=== PATIENT | female | born 1960 | race Two or more races ===

== ENCOUNTER → 2020-01-01 08:44 | Outpatient (BNVA) | payer MEDICARE, MEDICAID, SELFPAY | PROVIDERS: Visit Provider Family Medicine Adult Medicine | DX: M54.16 Radiculopathy, lumbar region (principal); R20.2 Paresthesia of skin; Z79.891 Long term (current) use of opiate analgesic | CPT/HCPCS: 99214 ==

== ENCOUNTER → 2020-02-03 08:06 | Outpatient (BNVA) | payer MEDICARE, MEDICAID, SELFPAY | PROVIDERS: PCP Physician Assistant; Referring Provider Physician Assistant; Visit Provider Family Medicine Adult Medicine | DX: M54.16 Radiculopathy, lumbar region (principal); M79.7 Fibromyalgia; Z79.891 Long term (current) use of opiate analgesic | CPT/HCPCS: 99212 ==

== ENCOUNTER → 2020-03-02 08:41 | Outpatient (BNVA) | payer MEDICARE, MEDICAID, SELFPAY | PROVIDERS: PCP Physician Assistant; Visit Provider Family Medicine Adult Medicine | DX: M54.16 Radiculopathy, lumbar region (principal); Z79.891 Long term (current) use of opiate analgesic | CPT/HCPCS: 99212 ==

== ENCOUNTER → 2020-03-30 08:07 | Outpatient (BNVA) | payer MEDICARE, MEDICAID, SELFPAY | PROVIDERS: PCP Physician Assistant; Visit Provider Nurse Practitioner Family | DX: M54.16 Radiculopathy, lumbar region (principal) | CPT/HCPCS: 99212 ==

== ENCOUNTER → 2020-04-27 08:08 | Outpatient (BNVA) | payer MEDICARE, MEDICAID, SELFPAY | PROVIDERS: PCP Physician Assistant; Visit Provider Family Medicine Adult Medicine | DX: M54.16 Radiculopathy, lumbar region (principal) | CPT/HCPCS: 99212 ==

== ENCOUNTER → 2020-05-25 08:01 | Outpatient (BNVA) | payer MEDICARE, MEDICAID, SELFPAY | PROVIDERS: PCP Physician Assistant; Visit Provider Family Medicine Adult Medicine | DX: M54.16 Radiculopathy, lumbar region (principal); R20.2 Paresthesia of skin; Z79.899 Other long term (current) drug therapy | CPT/HCPCS: 99212 ==

== ENCOUNTER → 2020-06-24 08:10 | Outpatient (BNVA) | payer MEDICARE, MEDICAID, SELFPAY | PROVIDERS: PCP Physician Assistant; Visit Provider Family Medicine Adult Medicine | DX: M54.16 Radiculopathy, lumbar region (principal) | CPT/HCPCS: 99212 ==

== ENCOUNTER → 2020-07-22 08:07 | Outpatient (BNVA) | payer MEDICARE, MEDICAID, SELFPAY | PROVIDERS: PCP Physician Assistant; Visit Provider Family Medicine Adult Medicine | DX: M54.16 Radiculopathy, lumbar region (principal) | CPT/HCPCS: 99212 ==

== ENCOUNTER → 2020-08-20 08:33 | Outpatient (BNVA) | payer MEDICARE, MEDICAID, SELFPAY | PROVIDERS: PCP Physician Assistant; Visit Provider Nurse Practitioner Family | DX: M54.16 Radiculopathy, lumbar region (principal) | CPT/HCPCS: 99212 ==

== ENCOUNTER → 2020-09-21 08:04 | Outpatient (BNVA) | payer MEDICARE, MEDICAID, SELFPAY | PROVIDERS: PCP Physician Assistant; Visit Provider Family Medicine Adult Medicine | DX: M54.16 Radiculopathy, lumbar region (principal) | CPT/HCPCS: 99212 ==

== ENCOUNTER → 2020-11-04 08:02 | Outpatient (BNVA) | payer MEDICARE, MEDICAID, SELFPAY | PROVIDERS: PCP Physician Assistant; Visit Provider Family Medicine Adult Medicine | DX: Z51.81 Encounter for therapeutic drug level monitoring (principal); M54.16 Radiculopathy, lumbar region | CPT/HCPCS: 99212 ==

== ENCOUNTER → 2020-11-30 08:05 | Outpatient (BNVA) | payer MEDICARE, MEDICAID, SELFPAY | PROVIDERS: PCP Physician Assistant; Visit Provider Family Medicine Adult Medicine | DX: M54.16 Radiculopathy, lumbar region (principal) | CPT/HCPCS: 99212 ==

== ENCOUNTER → 2020-12-28 08:04 | Outpatient (BNVA) | payer MEDICARE, MEDICAID, SELFPAY | PROVIDERS: PCP Physician Assistant; Visit Provider Family Medicine Adult Medicine | DX: Z13.89 Encounter for screening for other disorder (principal) | CPT/HCPCS: 99212 ==

== ENCOUNTER 2020-12-28 08:38 | Outpatient (REF) | payer MEDICARE, MEDICAID, SELFPAY ==
[2020-12-28 10:30] LABS: Appearance Urine HAZY; Color Urine YELLOW; Glucose Urine UA NEG (NEG); Leukocyte Esterase Urine NEG (NEG); Nitrite Urine NEG (NEG); Specific Gravity - Urine >= 1.030 (1.005-1.025); UACC Culture Trigger NO; Urine Blood 2+ (NEG); Urine Ketones NEG (NEG); Urine Protein NEG (NEG-TRACE)
[2020-12-28 10:39] LABS: Mean Corpuscular HGB Conc 33.3 g/dl (31.0-35.0); Mean Corpuscular Hemoglobin 30.2 pg (27.0-33.0); Mean Corpuscular Volume 90.5 fL (80-98); Mean Platelet Volume 10.8 fL (9.4-12.3); Platelet Count 308 X10*3/uL (160-400); Red Blood Count 4.31 X10*6/uL (4.20-5.50); Red Cell Distribution Width 12.5 % (11.0-16.0); White Blood Count 5.3 X10*3/uL (4.8-10.8)
[2020-12-28 10:55] LABS: Bacteria Urine 1+ /LPF; Squamous Epithelial Cell Urine 4+ /LPF; WBC Urine 0-2 /HPF (0-4)
[2020-12-28 10:56] LABS: Amorphous Sediment Urine 2+ /LPF
[2020-12-28 11:07] LABS: Estimated Average Glucose 108 mg/dL; Hemoglobin A1c % 5.4 %
[2020-12-28 11:23] LABS: Alanine Aminotransferase 32 U/L (0-31); Albumin Level 4.1 g/dL (3.5-5.0); Alkaline Phosphatase 102 U/L (39-117); Anion Gap 14 (12-20); Aspartate Amino Transferase 24 U/L (5-31); Bilirubin Total 0.3 mg/dL (0.0-1.0); Blood Urea Nitrogen 18 mg/dL (9-16); Calcium 8.7 mg/dL (8.4-10.2); Carbon Dioxide 24 mmol/L (22-29); Chloride 108 mmol/L (96-108); Cholesterol 238 mg/dL; Estimated Glomerular Filt Rate > 60; Glucose Fasting 104 mg/dL (60-99); HDL Cholesterol 43 mg/dL; LDL Cholesterol Calculated 178 mg/dl; Potassium 4.6 mmol/L (3.3-5.1); Sodium 141 mmol/L (135-145); Total Protein 6.7 g/dL (6.5-8.0); Triglycerides 89 mg/dL
[2020-12-28 11:26] LABS: TSH reflex Free T4 1.48 uIU/mL (0.32-4.0)
== END 2020-12-28 08:39 | disposition home or self-care (01) ==
LOC: HO.10HDL 08:38
PROVIDERS: Visit Provider Physician Assistant
DX: Z13.29 Encounter for screening for other suspected endocrine disorder (principal); Z13.220 Encounter for screening for lipoid disorders; M79.7 Fibromyalgia; I10 Essential (primary) hypertension
CPT/HCPCS: 36415; 80053; 80061; 81001; 83036; 84443; 85027; 99212

== ENCOUNTER → 2021-01-25 08:04 | Outpatient (BNVA) | payer MEDICARE, MEDICAID, SELFPAY | PROVIDERS: PCP Physician Assistant; Visit Provider Family Medicine Adult Medicine | DX: Z51.81 Encounter for therapeutic drug level monitoring (principal); M54.16 Radiculopathy, lumbar region | CPT/HCPCS: 99212 ==

== ENCOUNTER → 2021-03-01 08:00 | Outpatient (BNVA) | payer MEDICARE, MEDICAID, SELFPAY | PROVIDERS: PCP Physician Assistant; Visit Provider Family Medicine Adult Medicine | DX: Z51.81 Encounter for therapeutic drug level monitoring (principal); F11.20 Opioid dependence, uncomplicated | CPT/HCPCS: 99211 ==

== ENCOUNTER → 2021-03-30 08:18 | Outpatient (BNVA) | payer MEDICARE, MEDICAID, SELFPAY | PROVIDERS: PCP Physician Assistant; Visit Provider Anesthesiology | DX: Z51.81 Encounter for therapeutic drug level monitoring (principal); F11.20 Opioid dependence, uncomplicated; M54.16 Radiculopathy, lumbar region; M46.1 Sacroiliitis, not elsewhere classified; M72.2 Plantar fascial fibromatosis; M79.7 Fibromyalgia; M51.36 Other intervertebral disc degeneration, lumbar region; M47.16 Other spondylosis with myelopathy, lumbar region; G89.4 Chronic pain syndrome | CPT/HCPCS: 99212 ==

== ENCOUNTER → 2021-04-27 08:14 | Outpatient (BNVA) | payer MEDICARE, MEDICAID, SELFPAY | PROVIDERS: PCP Physician Assistant; Visit Provider Anesthesiology | DX: Z51.81 Encounter for therapeutic drug level monitoring (principal); F11.20 Opioid dependence, uncomplicated; M54.16 Radiculopathy, lumbar region; M46.1 Sacroiliitis, not elsewhere classified; M72.2 Plantar fascial fibromatosis; M79.7 Fibromyalgia; M51.36 Other intervertebral disc degeneration, lumbar region; M47.16 Other spondylosis with myelopathy, lumbar region; G89.4 Chronic pain syndrome | CPT/HCPCS: 99212 ==

== ENCOUNTER → 2021-05-25 08:37 | Outpatient (BNVA) | payer MEDICARE, MEDICAID, SELFPAY | PROVIDERS: PCP Physician Assistant; Visit Provider Anesthesiology | DX: Z51.81 Encounter for therapeutic drug level monitoring (principal); F11.20 Opioid dependence, uncomplicated; M54.16 Radiculopathy, lumbar region; M46.1 Sacroiliitis, not elsewhere classified; M72.2 Plantar fascial fibromatosis; M79.7 Fibromyalgia; M51.36 Other intervertebral disc degeneration, lumbar region; M47.16 Other spondylosis with myelopathy, lumbar region; G89.4 Chronic pain syndrome | CPT/HCPCS: 99212 ==

== ENCOUNTER → 2021-06-29 08:38 | Outpatient (BNVA) | payer MEDICARE, MEDICAID, SELFPAY | PROVIDERS: PCP Physician Assistant; Visit Provider Anesthesiology | DX: Z51.81 Encounter for therapeutic drug level monitoring (principal); F11.20 Opioid dependence, uncomplicated | CPT/HCPCS: 99212 ==

== ENCOUNTER 2021-07-13 10:26 | Outpatient (REF) | payer MEDICARE, MEDICAID, SELFPAY ==
--- NOTE | ~2021-07-13 | MR_ITS ---
EXAMINATION: MR LUMBAR SPINE WITHOUT CONTRAST CLINICAL INFORMATION: Low back pain. Bilateral lower to mid pain, numbness, and weakness. COMPARISON: No relevant prior imaging. TECHNIQUE: MRI of the lumbar spine was obtained using routine sequences without contrast. FINDINGS: There is slight grade 1 anterolisthesis of L3 on L4 and L4 on L5 related to advanced facet degenerative changes at these 2 levels. Alignment is otherwise normal. Vertebral heights are preserved. No acute bone marrow signal changes. There is disc desiccation at multiple levels without substantial loss of intervertebral disc height. The tip of the conus medullaris is located at L1-L2. No mass effect on the conus. Visualized distal cord signal intensity is normal. At L1-L2 and L2-L3 the annular contours are normal. No canal or neuroforaminal compromise at these 2 levels. At L3-L4 there is a pseudodisc bulge. Bilateral facet degenerative change. No canal stenosis. No mass effect on the traversing or foraminal nerve roots. At L4-L5 there is a pseudodisc bulge. Bilateral facet degenerative change. No canal stenosis. No mass effect on the traversing or foraminal nerve roots. At L5-S1 there is a shallow right subarticular protrusion superimposed upon a bulging disc. Bilateral facet degenerative change. No canal stenosis. No mass effect on the traversing or foraminal nerve roots. Limited visualization of the retroperitoneal anatomy reveals no abnormal finding. Psoas and paraspinal muscle groups are symmetric. MR/MR lumbar spine wo con IMPRESSION: There is multilevel degenerative spondylosis of the lumbar spine with grade 1 anterolisthesis of L3 on L4 and L4 on L5 related to facet degenerative changes at these 2 levels. There is a shallow right subarticular protrusion superimposed upon a bulging disc at L5-S1. There is no canal stenosis. No mass effect on the traversing or foraminal nerve roots.
== END 2021-07-13 10:27 | disposition home or self-care (01) ==
LOC: HO.MRI 10:26
PROVIDERS: Visit Provider Anesthesiology
DX: M47.16 Other spondylosis with myelopathy, lumbar region (principal); M51.36 Other intervertebral disc degeneration, lumbar region; G89.4 Chronic pain syndrome
CPT/HCPCS: 72148

== ENCOUNTER → 2021-07-28 08:38 | Outpatient (BNVA) | payer MEDICARE, MEDICAID, SELFPAY | PROVIDERS: PCP Physician Assistant; Visit Provider Anesthesiology | DX: M51.36 Other intervertebral disc degeneration, lumbar region (principal); M47.16 Other spondylosis with myelopathy, lumbar region; M46.1 Sacroiliitis, not elsewhere classified; G89.4 Chronic pain syndrome | CPT/HCPCS: Q3014 ==

== ENCOUNTER → 2021-08-23 08:45 | Outpatient (BNVA) | payer MEDICARE, MEDICAID, SELFPAY | PROVIDERS: PCP Physician Assistant; Visit Provider Nurse Practitioner Family | DX: G89.4 Chronic pain syndrome (principal); M51.36 Other intervertebral disc degeneration, lumbar region; M54.16 Radiculopathy, lumbar region; M53.3 Sacrococcygeal disorders, not elsewhere classified; M79.7 Fibromyalgia; Z79.891 Long term (current) use of opiate analgesic | CPT/HCPCS: 99212 ==

== ENCOUNTER → 2021-09-21 08:35 | Outpatient (BNVA) | payer MEDICARE, MEDICAID, SELFPAY | PROVIDERS: PCP Physician Assistant; Visit Provider Anesthesiology | DX: G89.4 Chronic pain syndrome (principal); M53.3 Sacrococcygeal disorders, not elsewhere classified; M51.36 Other intervertebral disc degeneration, lumbar region; M54.16 Radiculopathy, lumbar region; M79.7 Fibromyalgia; Z79.891 Long term (current) use of opiate analgesic | CPT/HCPCS: 99212 ==

== ENCOUNTER → 2021-10-14 11:07 | Outpatient (BNVA) | payer MEDICARE, MEDICAID, SELFPAY | PROVIDERS: PCP Physician Assistant; Visit Provider Internal Medicine | DX: M47.816 Spondylosis without myelopathy or radiculopathy, lumbar region (principal) | CPT/HCPCS: 99212 ==

== ENCOUNTER → 2021-11-23 08:27 | Outpatient (BNVA) | payer MEDICARE, MEDICAID, SELFPAY | PROVIDERS: PCP Physician Assistant; Visit Provider Anesthesiology | DX: G89.4 Chronic pain syndrome (principal); M53.3 Sacrococcygeal disorders, not elsewhere classified; M51.36 Other intervertebral disc degeneration, lumbar region; M79.7 Fibromyalgia; Z79.891 Long term (current) use of opiate analgesic | CPT/HCPCS: 99212 ==

== ENCOUNTER → 2022-01-23 08:33 | Outpatient (BNVA) | payer MEDICARE, MEDICAID, SELFPAY | PROVIDERS: PCP Physician Assistant; Visit Provider Anesthesiology | DX: Z51.81 Encounter for therapeutic drug level monitoring (principal); F11.20 Opioid dependence, uncomplicated; M53.3 Sacrococcygeal disorders, not elsewhere classified; M51.36 Other intervertebral disc degeneration, lumbar region; M79.7 Fibromyalgia; G89.4 Chronic pain syndrome | CPT/HCPCS: 99212 ==

== ENCOUNTER → 2022-03-20 08:41 | Outpatient (BNVA) | payer MEDICARE, MEDICAID, SELFPAY | PROVIDERS: PCP Physician Assistant; Visit Provider Anesthesiology | DX: Z51.81 Encounter for therapeutic drug level monitoring (principal); M53.3 Sacrococcygeal disorders, not elsewhere classified; M51.36 Other intervertebral disc degeneration, lumbar region; M79.7 Fibromyalgia; G89.4 Chronic pain syndrome; Z79.891 Long term (current) use of opiate analgesic | CPT/HCPCS: 99212 ==

== ENCOUNTER → 2022-05-15 08:33 | Outpatient (BNVA) | payer MEDICARE, MEDICAID, SELFPAY | PROVIDERS: PCP Physician Assistant; Visit Provider Anesthesiology | DX: G89.4 Chronic pain syndrome (principal); M53.3 Sacrococcygeal disorders, not elsewhere classified; M51.36 Other intervertebral disc degeneration, lumbar region; M79.7 Fibromyalgia; Z79.891 Long term (current) use of opiate analgesic | CPT/HCPCS: 99212 ==

== ENCOUNTER → 2022-07-20 08:32 | Outpatient (BNVA) | payer MEDICARE, MEDICAID, SELFPAY | PROVIDERS: PCP Physician Assistant; Visit Provider Anesthesiology | DX: Z51.81 Encounter for therapeutic drug level monitoring (principal); F11.20 Opioid dependence, uncomplicated; M53.3 Sacrococcygeal disorders, not elsewhere classified; M51.36 Other intervertebral disc degeneration, lumbar region; M79.7 Fibromyalgia; G89.4 Chronic pain syndrome; Z79.891 Long term (current) use of opiate analgesic | CPT/HCPCS: 99212 ==

== ENCOUNTER 2022-09-21 08:34 | Outpatient (AMB) | payer MEDICARE, MEDICAID, SELFPAY ==
--- NOTE | 2022-09-21 08:36 | A.OFFVIS_ITS ---
Intake Vital Signs 09/21/22 08:56 Height 5 ft 7 in Weight 228 lb BMI 35.7 BP 126/74 Blood Pressure Location Lt brachial Position Sitting Respiration 16 Pulse 81 Pulse Source Pulse Oximeter Pulse Oximetry (%) 97 Oxygen Delivery Method Room Air Intake Visit Reasons: Pill count Intake Note: Patient comes in for pill count to Oxycodone 5mg tablet. She presented with 2 tablets and should have 0 tablets. Which she took last this morning at 8am. Patient reports pain level today of 4-5/10. Allergies barium sulfate Allergy (Unknown, Verified 09/21/22 08:56) Unknown penicillin V Allergy (Unknown, Verified 09/21/22 08:56) Unknown pregabalin Allergy (Unknown, Verified 09/21/22 08:56) Unknown Sulfa (Sulfonamide Antibiotics) Allergy (Unknown, Verified 09/21/22 08:56) Unknown vancomycin Allergy (Unknown, Verified 09/21/22 08:56) Unknown varenicline Allergy (Unknown, Verified 09/21/22 08:56) Unknown HPI HPI Comments History of Present Illness Details Elham is a very pleasant 61-year-old female presenting for follow-up to discuss her ongoing low back pain as well as a pill count.? She presented today with 2pills in her possession.? She supposed to have no pills in her possession.? That exhibits good attitude to were the opioid medications.? The patient is taking medications as needed.? ? I am prescribing her 45 pills for a month but she has stretches this prescription or the course of the 2 months. She is very reliable patient and never missed her pill count. She takes her opioid medications on spare occasions because her pain is intermittent. I personally believe that we have to continue following original plan and perform sacroiliac joint injection 1st because on clinical exam the patient exhibits very strong signs of sacroiliitis with positive Felix test positive Gaenslen test and positive Filippo finger test.? If that will not work we will schedule patient for medial branch blocks. Patient is negative about injections. Pain reported to be in the axial low back radiating into the buttocks.? She denies radiation down the lower extremities.? Pain is present with activity and at rest.? She has previously had facet injections with moderate relief but this was done many years ago. MRI pictures with the patient showed significant multilevel facet arthritis with spondylosis and facet joint hypertrophy at L3-4 and L4-5 level.? This is associated with ligamentum flavum thickening and disc bulging altogether leading to some spinal stenosis [facility] Medical History (Updated 09/21/22 @ 08:56 by Kingsley Romero MD) Anxiety and depression Breast cancer Chronic pain syndrome Cyst of uterus Disc degeneration, lumbar Fibromyalgia Lumbar radiculopathy Neuropathy SAURAV (obstructive sleep apnea) Paresthesias Plantar fasciitis Plantar fasciitis, bilateral Pulmonary nodule Sacroiliitis Spondylosis, lumbar, with myelopathy Surgical History History of 2 sections History of bilateral breast reduction surgery History of vocal cord polypectomy Family History Father Alive and well Mother No problems noted. Social History Household Members Other:: with daughter Housing: House Alcohol intake: never Patient Tobacco Use Status: Former Tobacco user Cigarettes Per Day: 10 e-Cigarette/Vaping Use: Never Used Second Hand Smoke Exposure: Yes service: No Current occupational status: disabled Cognitive needs: No Hearing needs: No Vision needs: Yes (Glasses) Review of Systems Const All systems reviewed & are unremarkable except as noted in HPI and below Neuro Denies Abnormal speech present Physical Exam Const General: cooperative, no acute distress, alert, awake and well groomed Nutritional Appearance: well nourished and obese Orientation/consciousness: patient oriented x3 Limitations: no limitations HEENT Head: Yes normal to inspection, Yes normocephalic and Yes atraumatic Ears: hearing grossly normal bilaterally Eyes General: appearance normal, both eyes and all related structures Visual Friedman: normal visual friedman by confrontation Eyelids: Yes eyelids normal Pupils: Equal, round and reactive pupils present EOM: EOMs intact bilaterally Neck Neck: Yes normal visual inspection, Yes no lymphadenopathy, No anterior neck swelling and Yes no JVD Resp Effort & Inspection: normal respiratory effort, able to speak in complete sentences, normal respiratory pattern, no audible wheezes, no cough, no respiratory distress and symmetric chest movement Cardio Jugular venous distension: no JVD Bruits: no carotid bruits Peripheral pulses: radial pulses present, posterior tibial pulses present and dorsalis pedis present GI Inspection: Yes normal to inspection and No distended Palpation (GI): Soft to palpation and nontender Back/Spine/Pelvis Other: She is able to stand on bilateral tiptoes and bilateral heels although with difficulty which she relates with acute exacerbation of the her pain secondary to plantar fasciitis.? Nevertheless she demonstrates good efforts on bilateral lower extremities muscle strength.? She is able to flex forward without difficulty but flexing backwards cause her extreme pain in the back.? She is al so capable of performing herself SLR bilaterally however she reports that the right SLR is painful more than SLR on the left.? Felix test is positive bilaterally, Filippo finger test is positive bilaterally, palpation of bilateral sacroiliac joints causes significant pain in the projection of sacroiliac joint.? Most of the pain and tenderness of palpation in the projection of lower portion of lumbar and sacral bone.? This makes me think about bilateral sacroiliitis for this patient. Skin General skin exam: no rashes or lesions noted Neuro General: patient oriented x3 Cranial nerves: Yes Equal, round and reactive pupils present Speech: No Abnormal speech present Assessment & Plan Assessment & Plan (1) Sacroiliac joint dysfunction: Code(s): M53.3 - Sacrococcygeal disorders, not elsewhere classified (2) Opioid contract exists: Code(s): Z79.891 - enrobing machine feeder (current) use of opiate analgesic (3) Disc degeneration, lumbar: Code(s): M51.36 - Other intervertebral disc degeneration, lumbar region (4) Chronic pain syndrome: Code(s): G89.4 - Chronic pain syndrome (5) Fibromyalgia: Code(s): M79.7 - Fibromyalgia (6) Sacroiliitis, not elsewhere classified: Code(s): M46.1 - Sacroiliitis, not elsewhere classified Plan Patient has shown accountability for her medication regimen and the pill count was accurate. There is no evidence of misuse, abuse or diversion at this time. MassPat reviewed. She is being prescribed oxycodone now 5 mg 45 pills for 1 month however she stretches this prescription for 2 months. I usually see her once in 2 months. She is very reliable patient. She requests me to send her to physical therapy. She wants open order for physical therapy. She will bring it to [place]. She is reluctant to have injections which were offered to her in the past multiple times. Orders: Orders PT Evaluation and Treatment Today M46.1 - Sacroiliitis, not elsewhere classified Medications: Refilled oxycodone Partial Fill upon patient request. 5 mg PO BID 30 days PRN 45 tabs 0RF pain MDD one and one half pill. Coding Level of Care Code Est Pt Level 3 (67902) Diagnoses Sacroiliac joint dysfunction M53.3 Opioid contract exists Z79.891 Disc degeneration, lumbar M51.36 Chronic pain syndrome G89.4 Fibromyalgia M79.7 Sacroiliitis, not elsewhere classified M46.1
[2022-09-21 08:56] VITALS: BP 126/74; PULSE 81; RESP 16; O2SAT 97; BMI 35.7
== END 2022-09-21 08:54 | disposition home or self-care (01) ==
PROVIDERS: PCP Physician Assistant; Visit Provider Anesthesiology
DX: M53.3 Sacrococcygeal disorders, not elsewhere classified (principal); Z79.891 Long term (current) use of opiate analgesic; M51.36 Other intervertebral disc degeneration, lumbar region; G89.4 Chronic pain syndrome; M79.7 Fibromyalgia; M46.1 Sacroiliitis, not elsewhere classified
CPT/HCPCS: 99213

== ENCOUNTER → 2022-09-21 08:34 | Outpatient (BNVA) | payer MEDICARE, MEDICAID, SELFPAY | PROVIDERS: PCP Physician Assistant; Visit Provider Anesthesiology | DX: G89.4 Chronic pain syndrome (principal); M53.3 Sacrococcygeal disorders, not elsewhere classified; M51.36 Other intervertebral disc degeneration, lumbar region; M79.7 Fibromyalgia; M46.1 Sacroiliitis, not elsewhere classified; Z79.891 Long term (current) use of opiate analgesic | CPT/HCPCS: 99212 ==

== ENCOUNTER → 2022-10-12 08:56 | Outpatient (BNVA) | payer MEDICARE, MEDICAID, SELFPAY | PROVIDERS: PCP Physician Assistant; Visit Provider Registered Nurse Emergency | DX: Z51.81 Encounter for therapeutic drug level monitoring (principal); F11.20 Opioid dependence, uncomplicated | CPT/HCPCS: 99211 ==

== ENCOUNTER 2022-11-17 08:43 | Outpatient (AMB) | payer MEDICARE, MEDICAID, SELFPAY ==
[2022-11-17 08:55] VITALS: BP 136/86; PULSE 94; RESP 18; O2SAT 96; BMI 35.5
--- NOTE | 2022-11-17 08:55 | MHC.OFFVIS ---
Intake Vital Signs 11/17/22 08:55 Height 5 ft 7 in Weight 226 lb 6 oz BMI 35.5 BP 136/86 Blood Pressure Location Lt brachial Position Sitting Respiration 18 Pulse 94 Pulse Source Pulse Oximeter Pulse Oximetry (%) 96 Oxygen Delivery Method Room Air Intake Visit Reasons: Med count Allergies barium sulfate Allergy (Unknown, Verified 11/17/22 08:56) Unknown penicillin V Allergy (Unknown, Verified 11/17/22 08:56) Unknown pregabalin Allergy (Unknown, Verified 11/17/22 08:56) Unknown Sulfa (Sulfonamide Antibiotics) Allergy (Unknown, Verified 11/17/22 08:56) Unknown vancomycin Allergy (Unknown, Verified 11/17/22 08:56) Unknown varenicline Allergy (Unknown, Verified 11/17/22 08:56) Unknown HPI HPI Comments History of Present Illness Details Elham is a very pleasant 62 year old female who presents to the office today for chronic back pain and chronic opioid medication management. She is prescribed Oxycodone 5mg tabs, take 1.5 tabs daily as needed. Patient arrived today with the expectation of having 13.5 pills, she presented 35 pills which were counted in the presence of 2 staff and return to the patient in the original prescription bottle. This demonstrates responsible attitude toward patient's opioid medications. Pain is reported today as 8/10 and last dose of pain medication was taken at 08:00 this morning. Pain is adequately managed on current opioid regimen. Patient denies side effects including somnolence, constipation, itching, dyspnea, rash, dizziness or weakness. Patient previously prescribed 7.5mg tabs, due to supply issues she was changed to 5mg tabs. She would like to return to 7.5mg tabs, she confirmed with pharmacy that 7.5mg oxycodone tabs are back in stock. She has been offered SIJ injections in the past, she is planning to start PT for her SIJ and is currently working on scheduling appointments. She is holding on injections until after PT. Prior: Elham is a very pleasant 61-year-old female presenting for follow-up to discuss her ongoing low back pain as well as a pill count.? She presented today with 2pills in her possession.? She supposed to have no pills in her possession.? That exhibits good attitude to were the opioid medications.? The patient is taking medications as needed.? ? I am prescribing her 45 pills for a month but she has stretches this prescription or the course of the 2 months. She is very reliable patient and never missed her pill count. She takes her opioid medications on spare occasions because her pain is intermittent. I personally believe that we have to continue following original plan and perform sacroiliac joint injection 1st because on clinical exam the patient exhibits very strong signs of sacroiliitis with positive Felix test positive Gaenslen test and positive Filippo finger test.? If that will not work we will schedule patient for medial branch blocks. Patient is negative about injections. Pain reported to be in the axial low back radiating into the buttocks.? She denies radiation down the lower extremities.? Pain is present with activity and at rest.? She has previously had facet injections with moderate relief but this was done many years ago. MRI pictures with the patient showed significant multilevel facet arthritis with spondylosis and facet joint hypertrophy at L3-4 and L4-5 level.? This is associated with ligamentum flavum thickening and disc bulging altogether leading to some spinal stenosis [facility] Medical History (Updated 09/21/22 @ 08:56 by Kingsley Romero MD) SAURAV (obstructive sleep apnea) Anxiety and depression Spondylosis, lumbar, with myelopathy Disc degeneration, lumbar Chronic pain syndrome Fibromyalgia Plantar fasciitis Sacroiliitis Plantar fasciitis, bilateral Paresthesias Lumbar radiculopathy Cyst of uterus Breast cancer Neuropathy Pulmonary nodule Surgical History History of 2 sections History of bilateral breast reduction surgery History of vocal cord polypectomy Family History Father Alive and well Mother No problems noted. Social History Household Members Other:: with daughter Housing: House Alcohol intake: never Patient Tobacco Use Status: Former Tobacco user Cigarettes Per Day: 10 e-Cigarette/Vaping Use: Never Used Second Hand Smoke Exposure: Yes service: No Current occupational status: disabled Cognitive needs: No Hearing needs: No Vision needs: Yes (Glasses) Review of Systems Const All systems reviewed & are unremarkable except as noted in HPI and below Physical Exam Vital Signs: Last Vital Signs Pulse 94 11/17/22 08:55 Resp 18 11/17/22 08:55 BP 136/86 11/17/22 08:55 Pulse Ox 96 11/17/22 08:55 Oxygen Delivery Method Room Air 11/17/22 08:55 BMI result Body Mass Index 35.5 General: awake, alert, oriented. Answers questions appropriately. Fully engaged in examination. Skin: warm, dry, intact HEENT: Normocephalic. Hearing intact. Cardiac: External chest normal in appearance. Respiratory: No cough, audible wheezing or stridor. Abdomen: without gross distension. MS: Able to transition from sit to stand unassisted. Ambulates with bilaterally normal heel strike and toe off Neurological: Oriented to person, place, time and situation. Thought process intact. Psychiatric: Appropriate mood and affect. Good judgment and insight. Assessment & Plan Assessment & Plan (1) Sacroiliac joint dysfunction: Code(s): M53.3 - Sacrococcygeal disorders, not elsewhere classified (2) Opioid contract exists: Code(s): Z79.891 - longterm (current) use of opiate analgesic (3) Disc degeneration, lumbar: Code(s): M51.36 - Other intervertebral disc degeneration, lumbar region (4) Chronic pain syndrome: Code(s): G89.4 - Chronic pain syndrome (5) Fibromyalgia: Code(s): M79.7 - Fibromyalgia (6) Sacroiliitis, not elsewhere classified: Code(s): M46.1 - Sacroiliitis, not elsewhere classified Plan Masspat was reviewed and without concerns. No obvious signs of diversion, abuse or misuse of the opioid medications. Per last visit with Dr. Romero patient stretches her prescription over 2 months, she is not due for refill today. Patient to follow-up in the office with Dr. Romero in 1 month, sooner if needed. Next prescription will be sent at that visit for 7.5mg oxycodone tabs with decreased quantity. C/W plan for PT, will further discuss injections for SIJ after completion of PT. All questions and concerns have been answered and patient agrees with the plan. Coding Level of Care Code Est Pt Level 3 (91477) Diagnoses Sacroiliac joint dysfunction M53.3 Opioid contract exists Z79.891 Disc degeneration, lumbar M51.36 Chronic pain syndrome G89.4 Fibromyalgia M79.7 Sacroiliitis, not elsewhere classified M46.1
== END 2022-11-17 09:14 | disposition home or self-care (01) ==
PROVIDERS: PCP Physician Assistant; Visit Provider Registered Nurse Emergency
DX: G89.4 Chronic pain syndrome (principal); M53.3 Sacrococcygeal disorders, not elsewhere classified; Z79.891 Long term (current) use of opiate analgesic; M51.36 Other intervertebral disc degeneration, lumbar region; M79.7 Fibromyalgia; M46.1 Sacroiliitis, not elsewhere classified
CPT/HCPCS: 99213

== ENCOUNTER → 2022-11-17 08:43 | Outpatient (BNVA) | payer MEDICARE, MEDICAID, SELFPAY | PROVIDERS: PCP Physician Assistant; Visit Provider Registered Nurse Emergency | DX: M35.3 Polymyalgia rheumatica (principal); M51.36 Other intervertebral disc degeneration, lumbar region; G89.4 Chronic pain syndrome; M79.7 Fibromyalgia; M46.1 Sacroiliitis, not elsewhere classified; Z79.891 Long term (current) use of opiate analgesic | CPT/HCPCS: 99212 ==

== ENCOUNTER 2022-11-20 15:44 | Outpatient (AMB) | payer MEDICARE, MEDICAID, SELFPAY ==
--- NOTE | 2022-11-20 15:45 | MHC.OFFVIS ---
Intake Intake Visit Reasons: MEDICATION DISCUSSION Allergies barium sulfate Allergy (Unknown, Verified 11/20/22 15:46) Unknown penicillin V Allergy (Unknown, Verified 11/20/22 15:46) Unknown pregabalin Allergy (Unknown, Verified 11/20/22 15:46) Unknown Sulfa (Sulfonamide Antibiotics) Allergy (Unknown, Verified 11/20/22 15:46) Unknown vancomycin Allergy (Unknown, Verified 11/20/22 15:46) Unknown varenicline Allergy (Unknown, Verified 11/20/22 15:46) Unknown Medication List - Last Reconciled 11/20/22 by Julisa Cannon RN albuterol sulfate 90 mcg/actuation 1 puff PO QID ibuprofen 400 mg PO Q8H PRN nitrofurantoin monohyd/m-cryst 100 mg (Macrobid) 100 mg PO Q12H 5 days oxybutynin chloride ER 10 mg PO DAILY 90 days oxycodone 5 mg PO BID PRN 30 days MDD one and one half pill. pantoprazole 40 mg PO DAILY 90 days Symbicort 80-4.5 mcg/actuation (budesonide-formoterol) 2 puffs inhalation BID 30 days NS HPI HPI Comments History of Present Illness Details Elham is a very pleasant 62 year old female who presents to the office today for chronic back pain and chronic opioid medication management. There was misunderstanding with my office in this patient. She was prescribed 7.5 mg from the very beginning of care. Her pain from time to time was getting better and her dose was decreased to 5 mg p.r.n. b.i.d. of oxycodone. Now she reports her pain is getting worse and she would like to return to previously prescribe 7.5 mg. She was taking this medications very sparingly she was taking medication not even every day. I will renew her medication today do on 12/04/2022. I will prescribe it as oxycodone/acetaminophen 7.5 mg/325 mg b.i.d. but she again will be stretching this medication over the course of 2 months. Patient denies side effects including somnolence, constipation, itching, dyspnea, rash, dizziness or weakness. Patient previously prescribed 7.5mg tabs, due to supply issues she was changed to 5mg tabs. She would like to return to 7.5mg tabs, she confirmed with pharmacy that 7.5mg oxycodone tabs are back in stock. She has been offered SIJ injections in the past, she is planning to start PT for her SIJ and is currently working on scheduling appointments. She is holding on injections until after PT. Prior: Elham is a very pleasant 61-year-old female presenting for follow-up to discuss her ongoing low back pain as well as a pill count.? She presented today with 2pills in her possession.? She supposed to have no pills in her possession.? That exhibits good attitude to were the opioid medications.? The patient is taking medications as needed.? ? I am prescribing her 45 pills for a month but she has stretches this prescription or the course of the 2 months. She is very reliable patient and never missed her pill count. She takes her opioid medications on spare occasions because her pain is intermittent. I personally believe that we have to continue following original plan and perform sacroiliac joint injection 1st because on clinical exam the patient exhibits very strong signs of sacroiliitis with positive Felix test positive Gaenslen test and positive Filippo finger test.? If that will not work we will schedule patient for medial branch blocks. Patient is negative about injections. Pain reported to be in the axial low back radiating into the buttocks.? She denies radiation down the lower extremities.? Pain is present with activity and at rest.? She has previously had facet injections with moderate relief but this was done many years ago. MRI pictures with the patient showed significant multilevel facet arthritis with spondylosis and facet joint hypertrophy at L3-4 and L4-5 level.? This is associated with ligamentum flavum thickening and disc bulging altogether leading to some spinal stenosis [facility] Medical History (Updated 09/21/22 @ 08:56 by Kingsley Romero MD) SAURAV (obstructive sleep apnea) Anxiety and depression Spondylosis, lumbar, with myelopathy Disc degeneration, lumbar Chronic pain syndrome Fibromyalgia Plantar fasciitis Sacroiliitis Plantar fasciitis, bilateral Paresthesias Lumbar radiculopathy Cyst of uterus Breast cancer Neuropathy Pulmonary nodule Surgical History History of 2 sections History of bilateral breast reduction surgery History of vocal cord polypectomy Family History Father Alive and well Mother No problems noted. Social History Household Members Other:: with daughter Housing: House Alcohol intake: never Patient Tobacco Use Status: Former Tobacco user Cigarettes Per Day: 10 e-Cigarette/Vaping Use: Never Used Second Hand Smoke Exposure: Yes service: No Current occupational status: disabled Cognitive needs: No Hearing needs: No Vision needs: Yes (Glasses) Review of Systems Const All systems reviewed & are unremarkable except as noted in HPI and below Assessment & Plan Assessment & Plan (1) Sacroiliac joint dysfunction: Code(s): M53.3 - Sacrococcygeal disorders, not elsewhere classified (2) Opioid contract exists: Code(s): Z79.891 - group home (current) use of opiate analgesic (3) Disc degeneration, lumbar: Code(s): M51.36 - Other intervertebral disc degeneration, lumbar region (4) Chronic pain syndrome: Code(s): G89.4 - Chronic pain syndrome (5) Fibromyalgia: Code(s): M79.7 - Fibromyalgia (6) Sacroiliitis, not elsewhere classified: Code(s): M46.1 - Sacroiliitis, not elsewhere classified Plan Masspat was reviewed and without concerns. No obvious signs of diversion, abuse or misuse of the opioid medications. We agreed that we will return to the dose of [id number] 7.5/ 325 1 tablet p.o. b.i.d. p.r.n. 45 tablets per month which she will stretch on the course of 2 months. I will see her in the beginning of January. Medications: New oxycodone-acetaminophen 7.5-325 mg Partial Fill upon patient request. 1 tab PO BID 30 days PRN 45 tabs 0RF pain Discontinued oxycodone Partial Fill upon patient request. Discontinued Reason: Doctor's Order 5 mg PO BID 30 days PRN 45 tabs 0RF pain MDD one and one half pill. Patient Instructions: I here by testify that I spent 15 minutes in conversation with this patient. Telehealth Telehealth Location of provider rendering services: practice address Location of patient: other Patient Identification confirmed using: Name, : Yes Telehealth method: voice only Patient verbally consented to treatment: Yes Patient verbally consented to billing insurance company: Yes Patient informed of any privacy concerns related to visit: Yes Coding Level of Care Code Tele Est Pt Level 3 (87045) Diagnoses Sacroiliac joint dysfunction M53.3 Opioid contract exists Z79.891 Disc degeneration, lumbar M51.36 Chronic pain syndrome G89.4 Fibromyalgia M79.7 Sacroiliitis, not elsewhere classified M46.1
--- NOTE | 2022-11-20 15:49 | MHC.OFFVIS ---
Intake Intake Visit Reasons: MEDICATION DISCUSSION Allergies barium sulfate Allergy (Unknown, Verified 11/20/22 15:46) Unknown penicillin V Allergy (Unknown, Verified 11/20/22 15:46) Unknown pregabalin Allergy (Unknown, Verified 11/20/22 15:46) Unknown Sulfa (Sulfonamide Antibiotics) Allergy (Unknown, Verified 11/20/22 15:46) Unknown vancomycin Allergy (Unknown, Verified 11/20/22 15:46) Unknown varenicline Allergy (Unknown, Verified 11/20/22 15:46) Unknown Medication List - Last Reconciled 11/20/22 by Julisa Cannon RN albuterol sulfate 90 mcg/actuation 1 puff PO QID ibuprofen 400 mg PO Q8H PRN nitrofurantoin monohyd/m-cryst 100 mg (Macrobid) 100 mg PO Q12H 5 days oxybutynin chloride ER 10 mg PO DAILY 90 days oxycodone 5 mg PO BID PRN 30 days MDD one and one half pill. pantoprazole 40 mg PO DAILY 90 days Symbicort 80-4.5 mcg/actuation (budesonide-formoterol) 2 puffs inhalation BID 30 days NS [facility] Medical History (Updated 09/21/22 @ 08:56 by Kingsley Romero MD) SAURAV (obstructive sleep apnea) Anxiety and depression Spondylosis, lumbar, with myelopathy Disc degeneration, lumbar Chronic pain syndrome Fibromyalgia Plantar fasciitis Sacroiliitis Plantar fasciitis, bilateral Paresthesias Lumbar radiculopathy Cyst of uterus Breast cancer Neuropathy Pulmonary nodule Surgical History History of 2 sections History of bilateral breast reduction surgery History of vocal cord polypectomy Family History Father Alive and well Mother No problems noted. Social History Household Members Other:: with daughter Housing: House Alcohol intake: never Patient Tobacco Use Status: Former Tobacco user Cigarettes Per Day: 10 e-Cigarette/Vaping Use: Never Used Second Hand Smoke Exposure: Yes service: No Current occupational status: disabled Cognitive needs: No Hearing needs: No Vision needs: Yes (Glasses) Coding
== END 2022-11-20 16:04 | disposition home or self-care (01) ==
LOC: HO.PMC 15:44
PROVIDERS: PCP Physician Assistant; Visit Provider Anesthesiology
DX: M53.3 Sacrococcygeal disorders, not elsewhere classified (principal); Z79.891 Long term (current) use of opiate analgesic; M51.36 Other intervertebral disc degeneration, lumbar region; G89.4 Chronic pain syndrome; M79.7 Fibromyalgia; M46.1 Sacroiliitis, not elsewhere classified
CPT/HCPCS: 99442

== ENCOUNTER → 2022-11-20 15:44 | Outpatient (BNVA) | payer MEDICARE, MEDICAID, SELFPAY | PROVIDERS: PCP Physician Assistant; Visit Provider Anesthesiology ==

== ENCOUNTER 2023-01-10 09:10 | Outpatient (AMB) | payer MEDICARE, MEDICAID, SELFPAY ==
[2023-01-10 09:12] VITALS: PULSE 81; RESP 1; O2SAT 98; BMI 35.7
--- NOTE | 2023-01-10 09:12 | A.OFFVIS_ITS ---
Intake Vital Signs 01/10/23 09:12 Height 5 ft 7 in Weight 228 lb BMI 35.7 Blood Pressure Location Lt brachial Position Sitting Respiration 1 L Pulse 81 Pulse Source Pulse Oximeter Pulse Oximetry (%) 98 Oxygen Delivery Method Room Air Intake Visit Reasons: PILL COUNT /Confirmed Intake Note: Pt states she last took percocet 01/10/23 @ 8am Allergies barium sulfate Allergy (Unknown, Verified 01/10/23 09:14) Unknown penicillin V Allergy (Unknown, Verified 01/10/23 09:14) Unknown pregabalin Allergy (Unknown, Verified 01/10/23 09:14) Unknown Sulfa (Sulfonamide Antibiotics) Allergy (Unknown, Verified 01/10/23 09:14) Unknown vancomycin Allergy (Unknown, Verified 01/10/23 09:14) Unknown varenicline Allergy (Unknown, Verified 01/10/23 09:14) Unknown Medication List - Last Reconciled 01/10/23 by Yodit Alexander, [place] albuterol sulfate 90 mcg/actuation 1 puff PO QID ibuprofen 400 mg PO Q8H PRN oxybutynin chloride ER 10 mg PO DAILY 90 days oxycodone-acetaminophen 7.5-325 mg 1 tab PO BID PRN 30 days Symbicort 80-4.5 mcg/actuation (budesonide-formoterol) 2 puffs inhalation BID 30 days NS HPI HPI Comments History of Present Illness Details Elham is a very pleasant 62 year old female who presents to the office today for chronic back pain and chronic opioid medication management. Patient came today with 9 pills in her possession she supposed to have no pills in her possession. This demonstrates responsible attitude to were the opioid medications. She is being prescribed 45 pills for a month but she is able to stretch this prescription over the course of 2 months. She has been offered SIJ injections in the past, she is planning to start PT for her SIJ and is currently working on scheduling appointments. She is holding on injections until after PT. she did not start PT yet but she is planning to do it soon. I evaluated her MRI from 2021. The might be some subtle Modic type 1 changes in the L5-S1 as well. Possibility of intrasept was discussed with the patient. Prior: Elham is a very pleasant 61-year-old female presenting for follow-up to discuss her ongoing low back pain as well as a pill count.? She presented today with 2pills in her possession.? She supposed to have no pills in her possession.? That exhibits good attitude to were the opioid medications.? The patient is taking medications as needed.? ? I am prescribing her 45 pills for a month but she has stretches this prescription or the course of the 2 months. She is very reliable patient and never missed her pill count. She takes her opioid medications on spare occasions because her pain is intermittent. I personally believe that we have to continue following original plan and perform sacroiliac joint injection 1st because on clinical exam the patient exhibits very strong signs of sacroiliitis with positive Felix test positive Gaenslen test and positive Filippo finger test.? If that will not work we will schedule patient for medial branch blocks. Patient is negative about injections. Pain reported to be in the axial low back radiating into the buttocks.? She denies radiation down the lower extremities.? Pain is present with activity and at rest.? She has previously had facet injections with moderate relief but this was done many years ago. MRI pictures with the patient showed significant multilevel facet arthritis with spondylosis and facet joint hypertrophy at L3-4 and L4-5 level.? This is associated with ligamentum flavum thickening and disc bulging altogether leading to some spinal stenosis [facility] Medical History (Updated 11/23/22 @ 12:06 by Sincere Ray PA-C) SAURAV (obstructive sleep apnea) Anxiety and depression Spondylosis, lumbar, with myelopathy Disc degeneration, lumbar Chronic pain syndrome Fibromyalgia Plantar fasciitis Sacroiliitis Plantar fasciitis, bilateral Paresthesias Lumbar radiculopathy Cyst of uterus Breast cancer Neuropathy Pulmonary nodule Surgical History History of 2 sections History of bilateral breast reduction surgery History of vocal cord polypectomy Family History Father Alive and well Mother No problems noted. Social History Household Members Other:: with daughter Housing: House Alcohol intake: never Patient Tobacco Use Status: Former Tobacco user Cigarettes Per Day: 10 e-Cigarette/Vaping Use: Never Used Second Hand Smoke Exposure: Yes service: No Current occupational status: disabled Cognitive needs: No Hearing needs: No Vision needs: Yes (Glasses) Review of Systems Const All systems reviewed & are unremarkable except as noted in HPI and below Neuro Denies Abnormal speech present Physical Exam Vital Signs: Last Vital Signs Pulse 81 01/10/23 09:12 Resp 1 L 01/10/23 09:12 Pulse Ox 98 01/10/23 09:12 Oxygen Delivery Method Room Air 01/10/23 09:12 BMI result Body Mass Index 35.7 Const General: cooperative, no acute distress, alert, awake and well groomed Nutritional Appearance: well nourished and obese Orientation/consciousness: patient oriented x3 Limitations: no limitations HEENT Head: Yes normal to inspection, Yes normocephalic and Yes atraumatic Ears: hearing grossly normal bilaterally Eyes General: appearance normal, both eyes and all related structures Visual Friedman: normal visual friedman by confrontation Eyelids: Yes eyelids normal Pupils: Equal, round and reactive pupils present EOM: EOMs intact bilaterally Neck Neck: Yes normal visual inspection, Yes no lymphadenopathy, No anterior neck swelling and Yes no JVD Resp Effort & Inspection: normal respiratory effort, able to speak in complete sentences, normal respiratory pattern, no audible wheezes, no cough, no respiratory distress and symmetric chest movement Cardio Jugular venous distension: no JVD Bruits: no carotid bruits Peripheral pulses: radial pulses present, posterior tibial pulses present and dorsalis pedis present GI Inspection: Yes normal to inspection and No distended Palpation (GI): Soft to palpation and nontender Back/Spine/Pelvis Other: She is able to stand on bilateral tiptoes and bilateral heels although with difficulty which she relates with acute exacerbation of the her pain secondary to plantar fasciitis.? Nevertheless she demonstrates good efforts on bilateral lower extremities muscle strength.? She is able to flex forward without difficulty but flexing backwards cause her extreme pain in the back.? She is also capable of performing herself SLR bilaterally however she reports that the right SLR is painful more than SLR on the left.? Felix test is positive bilaterally, Filippo finger test is positive bilaterally, palpation of bilateral sacroiliac joints causes significant pain in the projection of sacroiliac joint.? Most of the pain and tenderness of palpation in the projection of lower portion of lumbar and sacral bone.? This makes me think about bilateral sacroiliitis for this patient. Skin General skin exam: no rashes or lesions noted Neuro General: patient oriented x3 Cranial nerves: Yes Equal, round and reactive pupils present Speech: No Abnormal speech present Assessment & Plan Assessment & Plan (1) Sacroiliac joint dysfunction: Code(s): M53.3 - Sacrococcygeal disorders, not elsewhere classified (2) Opioid contract exists: Code(s): Z79.891 - senior living (current) use of opiate analgesic (3) Disc degeneration, lumbar: Code(s): M51.36 - Other intervertebral disc degeneration, lumbar region (4) Chronic pain syndrome: Code(s): G89.4 - Chronic pain syndrome (5) Fibromyalgia: Code(s): M79.7 - Fibromyalgia (6) Sacroiliitis, not elsewhere classified: Code(s): M46.1 - Sacroiliitis, not elsewhere classified Plan Masspat was reviewed and without concerns. No obvious signs of diversion, abuse or misuse of the opioid medications. We agreed that we will return to the dose of Hvvvclfw-oguwwdjoy-chxsmavhvkaky 7.5/ 325 1 tablet p.o. b.i.d. p.r.n. 45 tablets per month which she will stretch on the course of 2 months. I will see her in 2 months from now. We discussed in the past SI joint injections. Now I am bringing on the table for her possibility of doing intercept for her. She wants to complete physical therapy 1st and see how this will or will not affect her pain. Medications: Refilled oxycodone-acetaminophen 7.5-325 mg Partial Fill upon patient request. 1 tab PO BID 30 days PRN 45 tabs 0RF pain Coding Level of Care Code Est Pt Level 4 (95233) Diagnoses Sacroiliac joint dysfunction M53.3 Opioid contract exists Z79.891 Disc degeneration, lumbar M51.36 Chronic pain syndrome G89.4 Fibromyalgia M79.7 Sacroiliitis, not elsewhere classified M46.1
== END 2023-01-10 09:34 | disposition home or self-care (01) ==
PROVIDERS: PCP Physician Assistant; Visit Provider Anesthesiology
DX: M53.3 Sacrococcygeal disorders, not elsewhere classified (principal); Z79.891 Long term (current) use of opiate analgesic; M51.36 Other intervertebral disc degeneration, lumbar region; G89.4 Chronic pain syndrome; M79.7 Fibromyalgia; M46.1 Sacroiliitis, not elsewhere classified
CPT/HCPCS: 99214

== ENCOUNTER → 2023-01-10 09:10 | Outpatient (BNVA) | payer MEDICARE, MEDICAID, SELFPAY | PROVIDERS: PCP Physician Assistant; Visit Provider Anesthesiology | DX: M53.3 Sacrococcygeal disorders, not elsewhere classified (principal); M51.36 Other intervertebral disc degeneration, lumbar region; G89.4 Chronic pain syndrome; M79.7 Fibromyalgia; M46.1 Sacroiliitis, not elsewhere classified; Z79.891 Long term (current) use of opiate analgesic | CPT/HCPCS: 99212 ==

== ENCOUNTER 2023-03-26 09:12 | Outpatient (REF) | payer MEDICARE, MEDICAID, SELFPAY ==
[2023-03-26 10:30] LABS: Hematocrit 43.2 % (37.0-47.0); Hemoglobin 14.2 g/dl (12.0-16.0); Mean Corpuscular HGB Conc 32.9 g/dl (31.0-35.0); Mean Corpuscular Hemoglobin 29.1 pg (27.0-33.0); Mean Corpuscular Volume 88.5 fL (80.0-98.0); Mean Platelet Volume 10.3 fL (9.4-12.3); Platelet Count 312 X10*3/uL (160-400); Red Blood Count 4.88 X10*6/uL (4.20-5.50); Red Cell Distribution Width 12.9 % (11.0-16.0); White Blood Count 4.6 X10*3/uL (4.8-10.8)
[2023-03-26 10:46] LABS: Alanine Aminotransferase 36 U/L (0-31); Albumin Level 4.3 g/dL (3.5-5.0); Alkaline Phosphatase 100 U/L (39-117); Anion Gap 10 (12-20); Aspartate Amino Transferase 22 U/L (5-31); Bilirubin Total 0.6 mg/dL (0.0-1.0); Blood Urea Nitrogen 16 mg/dL (9-16); Calcium 9.5 mg/dL (8.4-10.2); Carbon Dioxide 24 mmol/L (22-29); Chloride 109 mmol/L (96-108); Cholesterol 279 mg/dL (<200); Estimated Glomerular Filt Rate > 60; Glucose Fasting 109 mg/dL (60-99); HDL Cholesterol 49 mg/dL (>40); LDL Cholesterol Calculated 195 mg/dL (<100); Potassium 4.2 mmol/L (3.3-5.1); Sodium 139 mmol/L (135-145); Total Protein 7.6 g/dL (6.5-8.0); Triglycerides 176 mg/dL (<150)
== END 2023-03-26 09:13 | disposition home or self-care (01) ==
LOC: HO.10HDL 09:12
PROVIDERS: Visit Provider Physician Assistant
DX: Z13.1 Encounter for screening for diabetes mellitus (principal); E78.2 Mixed hyperlipidemia
CPT/HCPCS: 36415; 80053; 80061; 85027; 99212

== ENCOUNTER 2023-03-26 09:23 | Outpatient (AMB) | payer MEDICARE, MEDICAID, SELFPAY ==
--- NOTE | 2023-03-26 09:24 | MHC.OFFVIS ---
Intake Vital Signs 03/26/23 09:33 Height 5 ft 7 in Weight 232 lb 4 oz BMI 36.4 BP 150/80 H Blood Pressure Location Lt radial Position Sitting Respiration 16 Pulse 86 Pulse Source Pulse Oximeter Pulse Oximetry (%) 97 Oxygen Delivery Method Room Air Intake Visit Reasons: Medication Count/ Random UDS/confirmed Intake Note: Patient comes in for pill count to Oxycodone-acetaminophen 7.5 mg -325 mg tablets. Allergies barium sulfate Allergy (Unknown, Verified 03/26/23 09:32) Unknown penicillin V Allergy (Unknown, Verified 03/26/23 09:32) Unknown pregabalin Allergy (Unknown, Verified 03/26/23 09:32) Unknown Sulfa (Sulfonamide Antibiotics) Allergy (Unknown, Verified 03/26/23 09:32) Unknown vancomycin Allergy (Unknown, Verified 03/26/23 09:32) Unknown varenicline Allergy (Unknown, Verified 03/26/23 09:32) Unknown HPI HPI Comments History of Present Illness Details Elham is a very pleasant 62 year old female who presents to the office today for chronic back pain and chronic opioid medication management. She came today with 1 pill in her possession. His supposed to have no pills in her possession. I will send her prescription today. She is due today. I am prescribing 45 pills for the month and she is stretching it for the course of 2 months. He is taking opioid medications very sparingly. She wants me to issue her an open order for physical therapy. I evaluated her MRI from 2021. The might be some subtle Modic type 1 changes in the L5-S1 as well. Possibility of intrasept was discussed with the patient. She wants to go for physical therapy 1st. Prior: Elham is a very pleasant 61-year-old female presenting for follow-up to discuss her ongoing low back pain as well as a pill count.? She presented today with 2pills in her possession.? She supposed to have no pills in her possession.? That exhibits good attitude to were the opioid medications.? The patient is taking medications as needed.? ? I am prescribing her 45 pills for a month but she has stretches this prescription or the course of the 2 months. She is very reliable patient and never missed her pill count. She takes her opioid medications on spare occasions because her pain is intermittent. I personally believe that we have to continue following original plan and perform sacroiliac joint injection 1st because on clinical exam the patient exhibits very strong signs of sacroiliitis with positive Felix test positive Gaenslen test and positive Filippo finger test.? If that will not work we will schedule patient for medial branch blocks. Patient is negative about injections. Pain reported to be in the axial low back radiating into the buttocks.? She denies radiation down the lower extremities.? Pain is present with activity and at rest.? She has previously had facet injections with moderate relief but this was done many years ago. MRI pictures with the patient showed significant multilevel facet arthritis with spondylosis and facet joint hypertrophy at L3-4 and L4-5 level.? This is associated with ligamentum flavum thickening and disc bulging altogether leading to some spinal stenosis [facility] Medical History (Updated 03/26/23 @ 09:52 by Kingsley Romero MD) SAURAV (obstructive sleep apnea) Anxiety and depression Spondylosis, lumbar, with myelopathy Disc degeneration, lumbar Chronic pain syndrome Fibromyalgia Plantar fasciitis Sacroiliitis Plantar fasciitis, bilateral Paresthesias Lumbar radiculopathy Cyst of uterus Breast cancer Neuropathy Pulmonary nodule Surgical History History of 2 sections History of bilateral breast reduction surgery History of vocal cord polypectomy Family History Father Alive and well Mother No problems noted. Social History Household Members Other:: with daughter Housing: House Alcohol intake: never Patient Tobacco Use Status: Former Tobacco user Cigarettes Per Day: 10 e-Cigarette/Vaping Use: Never Used Second Hand Smoke Exposure: Yes service: No Current occupational status: disabled Cognitive needs: No Hearing needs: No Vision needs: Yes (Glasses) Review of Systems Const All systems reviewed & are unremarkable except as noted in HPI and below Neuro Denies Abnormal speech present Physical Exam Vital Signs: Last Vital Signs Pulse 86 03/26/23 09:33 Resp 16 03/26/23 09:33 BP 150/80 H 03/26/23 09:33 Pulse Ox 97 03/26/23 09:33 Oxygen Delivery Method Room Air 03/26/23 09:33 BMI result Body Mass Index 36.4 Const General: cooperative, no acute distress, alert, awake and well groomed Nutritional Appearance: well nourished and obese Orientation/consciousness: patient oriented x3 Limitations: no limitations HEENT Head: Yes normal to inspection, Yes normocephalic and Yes atraumatic Ears: hearing grossly normal bilaterally Eyes General: appearance normal, both eyes and all related structures Visual Friedman: normal visual friedman by confrontation Eyelids: Yes eyelids normal Pupils: Equal, round and reactive pupils present EOM: EOMs intact bilaterally Neck Neck: Yes normal visual inspection, Yes no lymphadenopathy, No anterior neck swelling and Yes no JVD Resp Effort & Inspection: normal respiratory effort, able to speak in complete sentences, normal respiratory pattern, no audible wheezes, no cough, no respiratory distress and symmetric chest movement Cardio Jugular venous distension: no JVD Bruits: no carotid bruits Peripheral pulses: radial pulses present, posterior tibial pulses present and dorsalis pedis present GI Inspection: Yes normal to inspection and No distended Palpation (GI): Soft to palpation and nontender Back/Spine/Pelvis Other: She is able to stand on bilateral tiptoes and bilateral heels although with difficulty which she relates with acute exacerbation of the her pain secondary to plantar fasciitis.? Nevertheless she demonstrates good efforts on bilateral lower extremities muscle strength.? She is able to flex forward without difficulty but flexing backwards cause her extreme pain in the back.? She is also capable of performing herself SLR bilaterally however she reports that the right SLR is painful more than SLR on the left.? Felix test is positive bilaterally, Filippo finger test is positive bilaterally, palpation of bilateral sacroiliac joints causes significant pain in the projection of sacroiliac joint.? Most of the pain and tenderness of palpation in the projection of lower portion of lumbar and sacral bone.? This makes me think about bilateral sacroiliitis for this patient. Skin General skin exam: no rashes or lesions noted Neuro General: patient oriented x3 Cranial nerves: Yes Equal, round and reactive pupils present Speech: No Abnormal speech present Assessment & Plan Assessment & Plan (1) Sacroiliac joint dysfunction: Code(s): M53.3 - Sacrococcygeal disorders, not elsewhere classified (2) Disc degeneration, lumbar: Code(s): M51.36 - Other intervertebral disc degeneration, lumbar region (3) Chronic pain syndrome: Code(s): G89.4 - Chronic pain syndrome (4) Sacroiliitis, not elsewhere classified: Code(s): M46.1 - Sacroiliitis, not elsewhere classified (5) Lumbar spondylosis: Code(s): M47.816 - Spondylosis without myelopathy or radiculopathy, lumbar region (6) Vertebrogenic low back pain: Code(s): M54.51 - Vertebrogenic low back pain Plan Masspat was reviewed and without concerns. No obvious signs of diversion, abuse or misuse of the opioid medications. We agreed that we will return to the dose of Hscuxibm-acrwxdbko-zpjsdzuhoqxjq 7.5/ 325 1 tablet p.o. b.i.d. p.r.n. 45 tablets per month which she will stretch on the course of 2 months. I will see her in 2 months from now. We discussed in the past SI joint injections. Now I am bringing on the table for her possibility of doing intercept for her. She wants to complete physical therapy 1st and see how this will or will not affect her pain. Open order for physical therapy was given to the patient. Orders: Orders PT Evaluation and Treatment Today G89.4 - Chronic pain syndrome, M46.1 - Sacroiliitis, not elsewhere classified, M47.816 - Spondylosis without myelopathy or radiculopathy, lumbar region, M51.36 - Other intervertebral disc degeneration, lumbar region, M53.3 - Sacrococcygeal disorders, not elsewhere classified, M54.51 - Vertebrogenic low back pain Medications: Refilled oxycodone-acetaminophen 7.5-325 mg Partial Fill upon patient request. 1 tab PO BID PRN 45 tabs 0RF pain 30 days Coding Level of Care Code Est Pt Level 3 (57529) Diagnoses Sacroiliac joint dysfunction M53.3 Disc degeneration, lumbar M51.36 Chronic pain syndrome G89.4 Sacroiliitis, not elsewhere classified M46.1 Lumbar spondylosis M47.816 Vertebrogenic low back pain M54.51
[2023-03-26 09:33] VITALS: BP 150/80; PULSE 86; RESP 16; O2SAT 97; BMI 36.4
== END 2023-03-26 09:50 | disposition home or self-care (01) ==
PROVIDERS: PCP Physician Assistant; Visit Provider Anesthesiology
DX: M53.3 Sacrococcygeal disorders, not elsewhere classified (principal); M51.36 Other intervertebral disc degeneration, lumbar region; G89.4 Chronic pain syndrome; M46.1 Sacroiliitis, not elsewhere classified; M47.816 Spondylosis without myelopathy or radiculopathy, lumbar region; M54.51 Vertebrogenic low back pain
CPT/HCPCS: 99213

== ENCOUNTER 2023-06-05 11:11 | Outpatient (AMB) | payer MEDICARE, MEDICAID, SELFPAY ==
[2023-06-05 11:15] VITALS: BP 112/70; PULSE 88; RESP 17; O2SAT 97; BMI 36.6
--- NOTE | 2023-06-05 11:15 | MHC.PC.OV ---
Vital Signs 06/05/23 11:15 Height 5 ft 7 in Weight 234 lb BMI 36.6 BP 112/70 Blood Pressure Location Lt brachial Position Sitting Respiration 17 Pulse 88 Pulse Source Pulse Oximeter Pulse Oximetry (%) 97 Oxygen Delivery Method Room Air Intake Visit Reasons: meds F/U Manager Talent Management Required: No Accompanied by: Self / Same As Patient Allergies barium sulfate Allergy (Unknown, Verified 06/05/23 11:31) Unknown penicillin V Allergy (Unknown, Verified 06/05/23 11:31) Unknown pregabalin Allergy (Unknown, Verified 06/05/23 11:31) Unknown Sulfa (Sulfonamide Antibiotics) Allergy (Unknown, Verified 06/05/23 11:31) Unknown vancomycin Allergy (Unknown, Verified 06/05/23 11:31) Unknown varenicline Allergy (Unknown, Verified 06/05/23 11:31) Unknown Medication List - Last Reconciled 06/05/23 by Sincere Ray PA-C albuterol sulfate 90 mcg/actuation 1 puff PO QID atorvastatin 20 mg PO DAILY 90 days ibuprofen 400 mg PO Q8H PRN oxybutynin chloride ER 10 mg PO DAILY 90 days oxycodone-acetaminophen 7.5-325 mg 1 tab PO BID PRN 30 days sertraline 50 mg PO DAILY Symbicort 80-4.5 mcg/actuation (budesonide-formoterol) 2 puffs inhalation BID 30 days NS Tobacco use date assessed: 06/05/23 Dental Screening Dental Screen Date: 06/05/23 Did you have a dental visit in the last 12 months?: Yes Did you have a dental problem in the last 6 months where you did not have access to dental care?: No Was dental information given to patient?: Patient has dentist HPI meds F/U HPI Details Patient is a 63 year-old female here today for a f/u visit ?Patient has a past history significant for lumbar radiculopathy, fibromyalgia, hyperlipidemia, former smoker, history of breast cancer, pulmonary nodule, chronic plantar facs Concerns--> Reports she has been having abd pain and bloating , chronic diarrhea/loose stool over the last several years. She reports her symptoms have only gotten worse. Also reports an intermittent bulging sensation in her left lower abdomen. Of note does have a history of inguinal hernia though has never been evaluated or repaired. She does see a barrel lathe operator outside in [place] and has done a gastric emptying study which showed rapid emptying. Signs and symptoms were concerning for IBS and was started on dicyclomine the time though was not helpful. She did get a colonoscopy in [address] Temple in which was normal. She is concerned about Pancreatic CA .. CHRONIC MEDICAL CONDITIONS--> .. Lumbar radiculopathy: She reports she has been discontinued from pain management clinic. She reports having a clean urine . 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 ? Patient was followed opiate pain management program and continues on oxycodone 7.5 mg to which she is planning on weaning completely off of over the next year.?? She has been responsible for pill counts.? SHE NOW IS ASKING IF PCP CAN NOT MANAGE HER NARCOTIC PAIN MEDICATION. She does report having side effects to Cymbalta, gabapentin, Lyrica. She is now interested in starting physical therapy . Asthma: Asthma has been better since she has quit smoking over the last 6 months. She does use her maintenance inhaler on a p.r.n. basis and continues with daily use of her Symbicort. Also report she was followed by Dr Brown ( client resolution specialist) and was followed for her nodules in the past. [facility] Medical History SAURAV (obstructive sleep apnea) Anxiety and depression Spondylosis, lumbar, with myelopathy Disc degeneration, lumbar Chronic pain syndrome Fibromyalgia Plantar fasciitis Sacroiliitis Plantar fasciitis, bilateral Paresthesias Lumbar radiculopathy Cyst of uterus Breast cancer Neuropathy Pulmonary nodule Surgical History History of bilateral breast reduction surgery History of vocal cord polypectomy History of 2 sections Family History Father Alive and well Mother No problems noted. Social History Household Members Other:: with daughter Housing: House Alcohol intake: never Patient Tobacco Use Status: Former Tobacco user Cigarettes Per Day: 10 e-Cigarette/Vaping Use: Never Used Second Hand Smoke Exposure: Yes service: No Current occupational status: disabled Current occupational exposures/hazards: No Cognitive needs: No Hearing needs: No Vision needs: Yes (Glasses) Questionnaire PHQ-9 Over the last 2 weeks, how often have you been bothered by any of the following problems? 1. Little interest or pleasure in doing things: nearly every day 2. Feeling down, depressed, or hopeless: nearly every day 3. Trouble falling or staying asleep, or sleeping too much: nearly every day 4. Feeling tired or having little energy: nearly every day 5. Poor appetite or overeating: several days 6. Feeling bad about yourself - or that you are a failure or have let yourself or your family down: more than half the days 7. Trouble concentrating on things, such as reading the newspaper or watching television: several days 8. Moving or speaking so slowly that other people could have noticed. Or the opposite - being so fidgety or restless that you have been moving around a lot more than usual: not at all 9. Thoughts that you would be better off or of hurting yourself in some way: not at all Total score: 16 Depression Screening Interpretation: Positive Depression Screening Follow-up: Existing condition and Declines treatment Depression Screening Done: Yes 85642 - PHQ-9 Billing: Yes Source: Developed by Drs. Jasbir Andersen, Purvi Dumont, Grzegorz Wu and colleagues, with an educational brian from [employer]. Thrive Questionnaire Date Thrive assessed: 06/05/23 I am a: Patient What is your living situation today?: I have a steady place to live Within the past 12 months, did the food you bought not last and you didn't have the money to get more?: Never true Within the past 12 months, did you worry whether your food would run out before you got money to buy more?: Never true Do you have trouble paying for medicines?: No Do you have trouble getting transportation to medical appointments?: No Do you have trouble paying your heating and electricity bill?: No Do you have trouble taking care of your child, family member or friend?: No Do you have trouble with day-to-day activities such as bathing, preparing meals, shopping, managing finances, etc.?: No Are you currently unemployed and looking for a job?: No Are you interested in more education?: No Please select the resources that you would like help with: None Currently or been in a relationship where the following occur: no concerns reported THRIVE Score: 0 AUDIT C Alcohol Use Questionnaire (AUDIT-C) 1. How often do you have a drink containing alcohol?: Never 3. How often do you have six or more drinks on one occasion?: Never Total Score: 0 IVAN-7 AMB Questionnaire IVAN-7 Date IVAN - 7 assessed: 06/05/23 Feeling nervous, anxious, or on edge: 2 = More than half the days Not being able to stop or control worryin = Not at all Worrying too much about different things: 1 = Several days Trouble relaxin = Not at all Being so restless that it is hard to sit still: 0 = Not at all Becoming easily annoyed or irritable: 1 = Several days Feeling afraid as if something awful might happen: 1 = Several days Total IVAN-7 score (0-4 normal; 5-9 mild; 10-14 moderate; 15-21 severe): 5 Source: Developed by Drs. Jasbir Andersen, Purvi Dumont, Grzegorz Wu and colleagues, with an educational brian from [employer]. IVAN-7 Assessment Billing IVAN-7 Assessment Tool: IVAN-7 Assessment 34645 Review of Systems Const Denies headache(s) Eyes Denies loss of vision ENT Reports dysphagia, Denies vertigo, Denies dizziness, Denies headache(s) and Denies sore throat Card Denies chest pain, Denies leg edema and Denies lightheadedness Resp Denies cough, Denies hemoptysis and Denies wheezing GI Reports abdominal pain, Denies melena, Reports bloating, Denies constipation, Reports GI cramping, Reports dysphagia, Reports diarrhea, Reports loose stools and Denies vomiting Denies urinary frequency, Denies dysuria and Denies urinary urgency Musc Denies arthralgias, Denies joint swelling, Denies numbness and Denies tingling Neuro Denies Abnormal speech present, Denies behavioral changes, Denies vertigo, Denies dizziness, Denies headache(s), Denies loss of vision, Denies memory loss, Denies numbness and Denies tingling Psych Denies anxiety, Denies behavioral changes, Denies depression, Denies memory loss and Denies panic attacks Mauricio/Lymph Denies easy bleeding and Denies easy bruising Aller/Immun Denies wheezing Physical exam (Primary Care) Vital Signs: Last Vital Signs Pulse 88 06/05/23 11:15 Resp 17 06/05/23 11:15 BP 112/70 06/05/23 11:15 Pulse Ox 97 06/05/23 11:15 Oxygen Delivery Method Room Air 06/05/23 11:15 BMI result Body Mass Index 36.6 Tobacco/Smoking Status: Tobacco use Status Tobacco use date assessed 06/05/23 06/05/23 11:16 Patient Tobacco Use Status Former Tobacco user 06/05/23 11:16 e-Cigarette/Vaping Use Never Used 06/05/23 11:16 PHQ-9: PHQ-9 Score PHQ-9: Total score 16 06/05/23 13:57 Depression Screening Interpretation: Positive Depression Screening Follow-up: Existing condition and Declines treatment Thrive Assessment: Date of Thrive Assessment Date Thrive assessed 06/05/23 06/05/23 11:28 Currently or been in a relationship where the following occur: no concerns reported Const General: healthy appearing, no acute distress, alert and awake Nutritional Appearance: well nourished Orientation/consciousness: oriented to person, oriented to place and oriented to time HENMT Ears: TM's normal bilaterally General nose exam: Normal nasal mucous membranes and turbinates present Eyes Conjunctivae: conjunctivae normal Sclerae: sclerae normal Pupils: Equal, round and reactive pupils present Neck Neck: Yes no lymphadenopathy and Yes no JVD Thyroid: Thyroid normal Carotids: no bruits Resp Effort & Inspection: normal respiratory effort and not tachypneic Auscultation: no crackles, no rales, no rhonchi and no wheezes Cardio Rate: regular rate Rhythm: regular rhythm Heart sounds: no murmurs and normal S1 and S2 GI Other: SOME MILD ABDOMINAL DISTENTION NOTED Inspection: Yes distended Palpation (GI): Tenderness to palpation present (GI) Auscultation: normal bowel sounds Skin General skin exam: no rashes or lesions noted and dry skin Neuro General: oriented to person, oriented to place and oriented to time Cranial nerves: Yes Equal, round and reactive pupils present Speech: No Abnormal speech present Gait exam (Neuro): Normal gait present Motor exam (neuro): no tremor noted Extrem Right upper extremity: full ROM Left upper extremity: full ROM Right lower extremity: full ROM; no edema Left lower extremity: full ROM; no edema Psych Mental Status: mental status grossly normal Speech and movement: Normal speech and movement present Affect: normal affect Attitude: cooperative Thought process: Normal thought process present Assessment and Plan Assessment & Plan (1) Abdominal bloating: Code(s): R14.0 - Abdominal distension (gaseous) Plan: PATIENT HAS MULTIPLE GASTRO COMPLAINTS INCLUDING DIFFICULTY SWALLOWING ABDOMINAL DISTENTION, INTERMITTENT BULGING IN THE LEFT LOWER ABDOMINAL QUADRANT. SO FAR HER GI WORKUP INCLUDING GASTRIC EMPTYING STUDY, COLONOSCOPY / ENDOSCOPY HAVE BEEN UNREVEALING. WILL SEND FOR STOOL TESTING, BLOOD WORK AND A CT OF ABDOMEN AND PELVIS TO EVALUATE FOR COLITIS. (2) Left inguinal hernia: Code(s): K40.90 - Unilateral inguinal hernia, without obstruction or gangrene, not specified as recurrent Orders: Orders Lipase 06/05/23 R14.0 - Abdominal distension (gaseous) Carbohydrate Antigen 19-9 06/05/23 R14.0 - Abdominal distension (gaseous) Calprotectin, Fecal 06/05/23 R14.0 - Abdominal distension (gaseous) H pylori Ag Stool 06/05/23 R14.0 - Abdominal distension (gaseous) UA CC w/rflx Micro + Cult 06/05/23 R14.0 - Abdominal distension (gaseous), R30.0 - Dysuria Liver Panel 06/05/23 R14.0 - Abdominal distension (gaseous) Transglutaminase IgA 06/05/23 R14.0 - Abdominal distension (gaseous) Transglutaminase Ab IgG 06/05/23 R14.0 - Abdominal distension (gaseous) Endomysial IgA rflx Titer 06/05/23 R14.0 - Abdominal distension (gaseous) Fecal Fat Qualitative 06/05/23 R14.0 - Abdominal distension (gaseous) CT abdomen pelvis wo IV con 06/05/23 K40.90 - Unilateral inguinal hernia, without obstruction or gangrene, not specified as recurrent Referrals General Surgery Referral K40.90 - Unilateral inguinal hernia, without obstruction or gangrene, not specified as recurrent Gastroenterology Referral R14.0 - Abdominal distension (gaseous) Medications: New sertraline 50 mg PO DAILY 90 days 90 tabs 1RF F41.1 - Generalized anxiety disorder Refilled albuterol sulfate 90 mcg/actuation 1 puff PO QID 8.5 grams 3RF J45.20 - Mild intermittent asthma, uncomplicated Symbicort 80-4.5 mcg/actuation (budesonide-formoterol) 2 puffs inhalation BID 30 days 10.2 grams 4RF NS J45.20 - Mild intermittent asthma, uncomplicated Coding Level of Care Code Est Pt Level 4 (42409) Diagnoses Abdominal bloating R14.0 Left inguinal hernia K40.90 Additional Codes IVAN-7 Assessment Billing - IVAN-7 Assessment Tool: IVAN-7 Assessment 43252 ([id number])
== END 2023-06-05 12:17 | disposition home or self-care (01) ==
PROVIDERS: PCP Physician Assistant; Visit Provider Physician Assistant
DX: R14.0 Abdominal distension (gaseous) (principal); K40.90 Unilateral inguinal hernia, without obstruction or gangrene, not specified as recurrent
CPT/HCPCS: 99214

== ENCOUNTER 2023-06-05 12:28 | Outpatient (REF) | payer MEDICARE, MEDICAID, SELFPAY ==
[2023-06-05 13:56] LABS: Appearance Urine Clear; Color Urine Yellow; Glucose Urine UA Negative (Negative); Leukocyte Esterase Urine Negative (Negative); Nitrite Urine Negative (Negative); Specific Gravity - Urine 1.015 (1.005-1.025); UMIC TRIGGER UACC YES; Urine Blood Trace (Negative); Urine Ketones Negative (Negative); Urine Protein Negative (Neg-Trace)
[2023-06-05 14:01] LABS: Alanine Aminotransferase 120 U/L (0-31); Albumin Level 4.4 g/dL (3.5-5.0); Alkaline Phosphatase 136 U/L (39-117); Aspartate Amino Transferase 76 U/L (5-31); Bilirubin Direct 0.2 mg/dL (0.0-0.5); Bilirubin Total 0.4 mg/dL (0.0-1.0); Lipase 22 U/L (8-78); Total Protein 7.8 g/dL (6.5-8.0)
[2023-06-05 15:10] LABS: Bacteria Urine None Seen (None Seen); Hyaline Casts Urine 0-2 /LPF (0-2); RBC Urine 0-2 /HPF (0-2); Squamous Epithelial Cell Urine 0-2 /HPF (0-2); WBC Urine 0-5 /HPF (0-5)
[2023-06-07 09:38] LABS: Carbohydrate Antigen 19-9 <3 U/mL (<34)
[2023-06-07 22:08] LABS: Transglutaminase Ab IgG <1.0 U/mL; Transglutaminase IgA <1.0 U/mL
[2023-06-08 13:18] LABS: Endomysial IgA Antibody Negative (Negative)
== END 2023-06-05 12:29 | disposition home or self-care (01) ==
LOC: HO.10HDL 12:28
PROVIDERS: Visit Provider Physician Assistant
DX: R14.0 Abdominal distension (gaseous) (principal); R30.0 Dysuria
CPT/HCPCS: 36415; 80076; 81001; 81003; 83690; 86231; 86301; 86364

== ENCOUNTER 2023-06-15 10:08 | Outpatient (REF) | payer MEDICARE, MEDICAID, SELFPAY ==
--- NOTE | ~2023-06-15 | US_ITS ---
EXAMINATION: US ABDOMEN COMPLETE CLINICAL INFORMATION: Abdominal distension (gaseous). Evaluate gallbladder. COMPARISON: None available. TECHNIQUE: Real-time imaging of the abdominal viscera. FINDINGS: PANCREAS: Normal. ABDOMINAL AORTA: The proximal, mid, and distal segments are normal in caliber. INFERIOR VENA CAVA: Visualized portions are normal. LIVER: The liver is not enlarged. The liver contour is normal. There is diffuse increased liver parenchymal echogenicity, consistent with hepatic steatosis. There is some sparing along the gallbladder fossa. No focal hepatic lesion. There is no intrahepatic biliary duct dilatation seen. GALLBLADDER: Normal. The gallbladder is physiologically distended without evidence of stones, sludge, polyps, wall thickening or pericholecystic fluid. COMMON BILE DUCT: Normal in caliber measuring 0.38 cm in diameter. RIGHT KIDNEY: Normal. No hydronephrosis. No renal calculi or focal parenchymal lesions. The kidney measures 10.9 cm in maximum dimension. LEFT KIDNEY: 0.8 cm simple cyst in the lower kidney. No follow-up imaging is recommended. No hydronephrosis or renal calculi. The kidney measures 11.5 cm in maximum dimension. SPLEEN: Normal. The spleen measures 11.1 cm in maximum dimension. FREE FLUID: None. US/US abdomen complete IMPRESSION: Hepatic steatosis. No cholelithiasis.
[2023-06-21 09:00] LABS: Calprotectin, Fecal <5
[2023-06-21 09:01] LABS: Fecal Fat Qualitative NORMAL
== END 2023-06-15 10:09 | disposition home or self-care (01) ==
LOC: HO.US 10:08
PROVIDERS: PCP Physician Assistant; Visit Provider Physician Assistant
DX: R14.0 Abdominal distension (gaseous) (principal); R74.8 Abnormal levels of other serum enzymes
CPT/HCPCS: 76700; 82705; 83993; 87338

== ENCOUNTER 2023-06-22 10:03 | Outpatient (REF) | payer MEDICARE, MEDICAID, SELFPAY ==
--- NOTE | ~2023-06-22 | CT_ITS ---
EXAMINATION: CT ABDOMEN AND PELVIS WITHOUT CONTRAST CLINICAL INFORMATION: Unilateral inguinal hernia, without obstruction or gangrene. COMPARISON: Ultrasound abdomen 06/15/2023, MR lumbar spine 07/13/2021. TECHNIQUE: Multidetector volumetric imaging was performed from the superior aspect of the liver through the pubic symphysis. Sagittal and coronal reformatted images were obtained on the technologist's workstation. This CT examination was performed using dose optimization techniques as appropriate, variously including the following: *Automated exposure control *Adjustment of mA and/or kV according to patient size (this includes techniques or standardized protocols for targeted exams where dose is matched to indication/reason for exam; i.e. extremities or head) *Use of iterative reconstruction technique DLP: 791 mGy-cm FINDINGS: LUNG BASES: The visualized lung bases are unremarkable. A 3 mm lung nodule is present at the right lung base (6:143). LIVER, GALLBLADDER, AND BILIARY TREE: The liver is normal in size and shape but demonstrates borderline decreased attenuation suggesting steatosis which was substantiated by an abdominal ultrasound on 06/15/2023 that showed a hyperechoic liver. No focal hepatic lesion or biliary ductal dilatation is present. The gallbladder is unremarkable with no evidence of radiopaque gallstones, gallbladder wall thickening, or obvious pericholecystic inflammatory changes. PANCREAS: Unremarkable. SPLEEN: Unremarkable. ADRENAL GLANDS: Unremarkable. KIDNEYS AND URETERS: The kidneys are normal in size, shape, and attenuation. No hydronephrosis, hydroureter, or calculi seen. No perinephric stranding. Multiple benign left-sided inferior parapelvic Bosniak class I renal cysts are noted which require no additional imaging or followup. No solid renal masses are seen. BLADDER: Unremarkable. GASTROINTESTINAL TRACT: The small and large bowel are unremarkable. Some scattered colonic diverticula are present without diverticulitis. The appendix is unremarkable. ABDOMINAL WALL: Small bilateral inguinal hernias are seen containing only fat. Tiny periumbilical hernia seen containing only fat. LYMPH NODES: Normal. VASCULAR: Calcific atherosclerotic changes are present in the aorta and iliac vessels. There is no evidence of an abdominal aortic aneurysm. PELVIC VISCERA: There is a 7 mm ovoid calcification present in the lower endometrial canal. OSSEOUS STRUCTURES: A bone island is present in the right ischium. Mild degenerative changes are present in the visualized lower thoracic spine. Sclerotic changes are present in the left iliac bone adjacent to the SI joint with an appearance suggesting osteitis condensans ilii. CT/CT abdomen pelvis wo IV con IMPRESSION: 1. Small bilateral inguinal hernias containing only fat. 2. Incidental note made of hepatic steatosis, colonic diverticulosis, benign left renal cysts which need no further imaging or followup. 3. Calcifications seen in the endometrial canal. Transabdominal and endovaginal ultrasound is recommended for further evaluation. Fleischner guidelines were followed.
== END 2023-06-22 10:04 | disposition home or self-care (01) ==
LOC: HO.CT 10:03
PROVIDERS: PCP Physician Assistant; Visit Provider Physician Assistant
DX: K40.90 Unilateral inguinal hernia, without obstruction or gangrene, not specified as recurrent (principal)
CPT/HCPCS: 74176

== ENCOUNTER 2023-08-09 11:21 | Outpatient (AMB) | payer MEDICARE, MEDICAID, SELFPAY ==
[2023-08-09 11:24] VITALS: BP 132/86; PULSE 76; O2SAT 98; BMI 36.4
--- NOTE | 2023-08-09 11:24 | A.OFFPC_ITS ---
Vital Signs 08/09/23 11:24 Height 5 ft 7 in Weight 232 lb 4 oz BMI 36.4 BP 132/86 Blood Pressure Location Lt brachial Position Sitting Pulse 76 Pulse Source Pulse Oximeter Pulse Oximetry (%) 98 Oxygen Delivery Method Room Air Intake Visit Reasons: 8 Week F/U Intake Note: Pt is here to go over the diagnostics report. Flat Clothier Required: No Accompanied by: Self / Same As Patient Allergies barium sulfate Allergy (Unknown, Verified 08/09/23 11:52) Unknown penicillin V Allergy (Unknown, Verified 08/09/23 11:52) Unknown pregabalin Allergy (Unknown, Verified 08/09/23 11:52) Unknown Sulfa (Sulfonamide Antibiotics) Allergy (Unknown, Verified 08/09/23 11:52) Unknown vancomycin Allergy (Unknown, Verified 08/09/23 11:52) Unknown varenicline Allergy (Unknown, Verified 08/09/23 11:52) Unknown Medication List - Last Reconciled 08/09/23 by Sincere Ray PA-C albuterol sulfate 90 mcg/actuation 1 puff PO QID atorvastatin 20 mg PO DAILY 90 days dicyclomine 10 mg PO TID ibuprofen 400 mg PO Q8H PRN oxybutynin chloride ER 10 mg PO DAILY 90 days oxycodone-acetaminophen 7.5-325 mg 1 tab PO BID PRN 30 days peg 3350-electrolytes 236-22.74-6.74 -5.86 gram (GaviLyte-G) mL PO sertraline 50 mg PO DAILY 90 days Symbicort 80-4.5 mcg/actuation (budesonide-formoterol) 2 puffs inhalation BID 30 days NS Tobacco use date assessed: 06/05/23 Dental Screening Dental Screen Date: 06/05/23 HPI 8 Week F/U HPI Details Patient is a 63 year-old female here today for a f/u visit ?Patient has a past history significant for lumbar radiculopathy, fibromyalgia, hyperlipidemia, former smoker, history of breast cancer, pulmonary nodule, chronic plantar facs Concerns--> Reports she has been having abd pain and bloating , chronic diarrhea/loose stool over the last several years. She reports her symptoms have only gotten worse. She has underwent a CT of abdomen and pelvis that is did show bilateral fat containing inguinal hernias. Of note was some calcifications in her endometrium, and a 3 mm right lower lobe pulmonary nodule. Inguinal hernia--now followed by general surgeon at [facility] and will be due for inguinal hernia repair. She is told to lose 40-50 lb before the surgery. She is willing to try GLP 1 to help her lose weight. Pulmonary nodule- would like to reestablish care with her credit operations specialist at [facility] (Dr. Brown)- with a former smoker and had been following her pulmonary nodules for years before. .. Endometrial calcifications- incidental finding on CT abdomen and pelvis. She was due for biopsy though has had no luck with [facility]. She would like to establish care here at [place] with grain sampler and possibly get endometrial biopsy. Of note to his no menstrual bleeding CHRONIC MEDICAL CONDITIONS--> .. Lumbar radiculopathy: She reports she has been discontinued from pain management clinic. She reports having a clean urine . 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 ? Patient was followed opiate pain management program and continues on oxycodone 7.5 mg to which she is planning on weaning completely off of over the next year.?? She has been responsible for pill counts.? SHE NOW IS ASKING IF PCP CAN NOT MANAGE HER NARCOTIC PAIN MEDICATION. She does report having side effects to Cymbalta, gabapentin, Lyrica. She is now interested in starting physical therapy [facility] Medical History SAURAV (obstructive sleep apnea) Anxiety and depression Spondylosis, lumbar, with myelopathy Disc degeneration, lumbar Chronic pain syndrome Fibromyalgia Plantar fasciitis Sacroiliitis Plantar fasciitis, bilateral Paresthesias Lumbar radiculopathy Cyst of uterus Breast cancer Neuropathy Pulmonary nodule Surgical History History of bilateral breast reduction surgery History of vocal cord polypectomy History of 2 sections Family History Father Alive and well Mother No problems noted. Social History Household Members Other:: with daughter Housing: House Alcohol intake: never Patient Tobacco Use Status: Former Tobacco user Cigarettes Per Day: 10 e-Cigarette/Vaping Use: Never Used Second Hand Smoke Exposure: Yes service: No Current occupational status: disabled Current occupational exposures/hazards: No Cognitive needs: No Hearing needs: No Vision needs: Yes (Glasses) Questionnaire Thrive Questionnaire Date Thrive assessed: 06/05/23 IVAN-7 AMB Questionnaire IVAN-7 Date IVAN - 7 assessed: 06/05/23 Source: Developed by Drs. Jasbir Andersen, Purvi Dumont, Grzegorz Wu and colleagues, with an educational brian from [employer]. Review of Systems Const Denies headache(s) Eyes Denies loss of vision ENT Denies vertigo, Denies dizziness, Denies headache(s) and Denies sore throat Card Denies chest pain, Denies leg edema and Denies lightheadedness Resp Denies cough, Denies hemoptysis and Denies wheezing GI Denies abdominal pain, Denies melena, Denies constipation, Denies diarrhea and Denies vomiting Denies urinary frequency, Denies dysuria and Denies urinary urgency Musc Denies arthralgias, Denies joint swelling, Denies numbness and Denies tingling Neuro Denies Abnormal speech present, Denies behavioral changes, Denies vertigo, Denies dizziness, Denies headache(s), Denies loss of vision, Denies memory loss, Denies numbness and Denies tingling Psych Denies anxiety, Denies behavioral changes, Denies depression, Denies memory loss and Denies panic attacks Mauricio/Lymph Denies easy bleeding and Denies easy bruising Aller/Immun Denies wheezing Physical exam (Primary Care) Vital Signs: Last Vital Signs Pulse 76 08/09/23 11:24 BP 132/86 08/09/23 11:24 Pulse Ox 98 08/09/23 11:24 Oxygen Delivery Method Room Air 08/09/23 11:24 BMI result Body Mass Index 36.4 Tobacco/Smoking Status: Tobacco use Status Tobacco use date assessed 06/05/23 08/09/23 11:25 Patient Tobacco Use Status Former Tobacco user 08/09/23 11:25 e-Cigarette/Vaping Use Never Used 08/09/23 11:25 Thrive Assessment: Date of Thrive Assessment Date Thrive assessed 06/05/23 08/09/23 11:25 Const General: healthy appearing, no acute distress, alert and awake Nutritional Appearance: well nourished Orientation/consciousness: oriented to person, oriented to place and oriented to time HENMT Ears: TM's normal bilaterally General nose exam: Normal nasal mucous membranes and turbinates present Eyes Conjunctivae: conjunctivae normal Sclerae: sclerae normal Pupils: Equal, round and reactive pupils present Neck Neck: Yes no lymphadenopathy and Yes no JVD Thyroid: Thyroid normal Carotids: no bruits Resp Effort & Inspection: normal respiratory effort and not tachypneic Auscultation: no crackles, no rales, no rhonchi and no wheezes Cardio Rate: regular rate Rhythm: regular rhythm Heart sounds: no murmurs and normal S1 and S2 GI Palpation (GI): Soft to palpation, nontender, no hepatomegaly and no splenomegaly Auscultation: normal bowel sounds Skin General skin exam: no rashes or lesions noted and dry skin Neuro General: oriented to person, oriented to place and oriented to time Cranial nerves: Yes Equal, round and reactive pupils present Speech: No Abnormal speech present Gait exam (Neuro): Normal gait present Motor exam (neuro): no tremor noted Extrem Right upper extremity: full ROM Left upper extremity: full ROM Right lower extremity: full ROM; no edema Left lower extremity: full ROM; no edema Psych Mental Status: mental status grossly normal Speech and movement: Normal speech and movement present Affect: normal affect Attitude: cooperative Thought process: Normal thought process present Assessment and Plan Assessment & Plan (1) Right lower lobe pulmonary nodule: Code(s): R91.1 - Solitary pulmonary nodule Plan: As per HPI there was a 3 mm pulmonary nodule in the left lower lung found on CT. Will like to reestablish care with her credit operations specialist for could do following this pulmonary nodule. She has a former smoker (2) Renal cyst, right: Code(s): N28.1 - Cyst of kidney, acquired Plan: Noted a simple cyst on her right kidney. (3) Urinary incontinence: Code(s): R32 - Unspecified urinary incontinence Qualifiers: Urinary Incontinence type: unspecified incontinence Qualified Code(s): R32 - Unspecified urinary incontinence Plan: She continues with oxybutynin 10 mg with decent affect. (4) Endometrial mass: Code(s): N94.89 - Other specified conditions associated with female genital organs and menstrual cycle Plan: Noted an endometrial calcified mass. She is concerned about cancer with like a biopsy. She has had no luck with [facility] due to provide short and having her appointments rescheduled multiple times. Otherwise no (5) Inguinal hernia: Code(s): K40.90 - Unilateral inguinal hernia, without obstruction or gangrene, not specified as recurrent Qualifiers: Laterality: bilateral Obstruction and gangrene presence: without obstruction or gangrene Recurrence: non-recurrent Qualified Code(s): K40.20 - Bilateral inguinal hernia, without obstruction or gangrene, not specified as recurrent Plan: She is due for inguinal repair surgery in the fall. She plans on trying to lose weight before surgery. She is willing to try it GLP 1 to help her lose weight. (6) Obese: Code(s): E66.9 - Obesity, unspecified Qualifiers: Body mass index: BMI 35.0-35.9 Obesity classification: adult class 2 (BMI 35 - 39.9) Obesity type: due to excess calories Serious obesity comorbidity presence: without serious comorbidity Qualified Code(s): E66.09 - Other obesity due to excess calories; Z68.35 - Body mass index [BMI] 35.0-35.9, adult Plan: As above. Patient does understand her BMI is well over 30 will work on being more physically active and adapting to better eating habits to reduce her weight (7) HLD (hyperlipidemia): Code(s): E78.5 - Hyperlipidemia, unspecified Qualifiers: Hyperlipidemia type: mixed hyperlipidemia Qualified Code(s): E78.2 - Mixed hyperlipidemia Plan: Patient's most recent labs showing elevated total cholesterol and LDL. We did discuss the possibility of starting statin therapy the patient would like to work on her lifestyle modifications to reduce her high cholesterol foods. (8) Lumbar spondylosis: Code(s): M47.816 - Spondylosis without myelopathy or radiculopathy, lumbar region Plan: She continues to have lower lumbar spine pain that causes some significant disability. She was followed by [place] pain management in the past and was receiving oxycodone to use on a as needed basis. She was not interested in injections as she is very afraid of needles She has been without any pain medication for quite some time now and is interested in restarting on an as needed basis for pain scales of 8-10. (9) Former smoker: Code(s): Z87.891 - Personal history of nicotine dependence Plan: Is a former smoker and quit in 2022. Of note pulmonary nodule noted in the right lower lung base at 3 mm.. Asthma has been is somewhat better. Orders: Referrals ASSISTANT NEWS DIRECTOR Referral N94.89 - Other specified conditions associated with female genital organs and menstrual cycle Pulmonology Referral R91.1 - Solitary pulmonary nodule Medications: New semaglutide (weight loss) (Wegovy) administer weeks 1 through 4 of therapy 0.25 mg (0.5 mL) subcut QWEEK 2 mL 1RF 4 weeks E66.09 - Other obesity due to excess calories, Z68.35 - Body mass index [BMI] 35.0-35.9, adult Changed From oxycodone-acetaminophen 7.5-325 mg Partial Fill upon patient request. 1 tab PO BID 30 days PRN 45 tabs 0RF pain M53.3 - Sacrococcygeal disorders, not elsewhere classified To oxycodone-acetaminophen 7.5-325 mg Partial Fill upon patient request. 1 tab PO BID PRN 14 tabs 0RF pain 7 days M53.3 - Sacrococcygeal disorders, not elsewhere classified Coding Level of Care Code Est Pt Level 4 (55120) Diagnoses Right lower lobe pulmonary nodule R91.1 Renal cyst, right N28.1 Urinary incontinence, unspecified type R32 Urinary Incontinence type: unspecified incontinence Endometrial mass N94.89 Non-recurrent bilateral inguinal hernia without obstruction or gangrene K40.20 Laterality: bilateral Obstruction and gangrene presence: without obstruction or gangrene Recurrence: non-recurrent Class 2 obesity due to excess calories without serious comorbidity with body mass index (BMI) of 35.0 to 35.9 in adult E66.09; Z68.35 Body mass index: BMI 35.0-35.9 Obesity classification: adult class 2 (BMI 35 - 39.9) Obesity type: due to excess calories Serious obesity comorbidity presence: without serious comorbidity Mixed hyperlipidemia E78.2 Hyperlipidemia type: mixed hyperlipidemia Lumbar spondylosis M47.816 Former smoker Z87.891
== END 2023-08-09 12:40 | disposition home or self-care (01) ==
PROVIDERS: PCP Physician Assistant; Visit Provider Physician Assistant
DX: R91.1 Solitary pulmonary nodule (principal); N28.1 Cyst of kidney, acquired; R32 Unspecified urinary incontinence; N94.89 Other specified conditions associated with female genital organs and menstrual cycle; K40.20 Bilateral inguinal hernia, without obstruction or gangrene, not specified as recurrent; E66.09 Other obesity due to excess calories; Z68.35 Body mass index [BMI] 35.0-35.9, adult; E78.2 Mixed hyperlipidemia; M47.816 Spondylosis without myelopathy or radiculopathy, lumbar region; Z87.891 Personal history of nicotine dependence
CPT/HCPCS: 99214

== ENCOUNTER 2023-08-30 12:13 | Outpatient (AMB) | payer MEDICARE, MEDICAID, SELFPAY ==
[2023-08-30 12:17] VITALS: BP 136/82; BMI 36.3
--- NOTE | 2023-08-30 12:17 | MHC.OFFVIS ---
Vital Signs 08/30/23 12:17 Height 5 ft 7 in Weight 231 lb 7.766 oz BMI 36.3 BP 136/82 Intake Visit Reasons: menstrual cycle/referral University Administrative Assistant Required: No Information Interpreted: non-clinical & clinical Front Desk Monitor: Front Desk Monitor Present Accompanied by: Self / Same As Patient Allergies barium sulfate Allergy (Unknown, Verified 08/30/23 12:20) Unknown penicillin V Allergy (Unknown, Verified 08/30/23 12:20) Unknown pregabalin Allergy (Unknown, Verified 08/30/23 12:20) Unknown Sulfa (Sulfonamide Antibiotics) Allergy (Unknown, Verified 08/30/23 12:20) Unknown vancomycin Allergy (Unknown, Verified 08/30/23 12:20) Unknown varenicline Allergy (Unknown, Verified 08/30/23 12:20) Unknown Post menopausal: Yes HPI Comments Details: Presenting for a 2nd opinion regarding abnormal endometrium by CT scan which showed some calcification, this was followed by pelvic ultrasound at [place] which showed according to the patient, report is not available, thickened endometrium. In addition, the patient gives a history of cervical lesion. Last Pap smear was 2 years ago according to the patient, records not available, was normal. No history of vaginal bleeding. CT scan showed bilateral inguinal hernia, the patient is so a general surgeon scheduled for inguinal hernia repair in November. In addition the patient is complaining of vulvovaginal itching over the last few years. History of tamoxifen use in 2016 for short period of time after diagnosis of breast cancer Last mammogram according to patient was negative less than a year ago at [facility] Medical History SAURAV (obstructive sleep apnea) Anxiety and depression Spondylosis, lumbar, with myelopathy Disc degeneration, lumbar Chronic pain syndrome Fibromyalgia Plantar fasciitis Sacroiliitis Plantar fasciitis, bilateral Paresthesias Lumbar radiculopathy Cyst of uterus Breast cancer Neuropathy Pulmonary nodule Surgical History History of bilateral breast reduction surgery History of vocal cord polypectomy History of 2 sections Family History Father Alive and well Mother No problems noted. Social History Household Members Other:: with daughter Housing: House Alcohol intake: never Patient Tobacco Use Status: Former Tobacco user Cigarettes Per Day: 10 e-Cigarette/Vaping Use: Never Used Second Hand Smoke Exposure: Yes service: No Current occupational status: disabled Current occupational exposures/hazards: No Cognitive needs: No Hearing needs: No Vision needs: Yes (Glasses) Review of Systems Const All systems reviewed & are unremarkable except as noted in HPI and below Physical Exam Vital Signs: Last Vital Signs BP 136/82 08/30/23 12:17 BMI result Body Mass Index 36.3 General: Yes no CVA tenderness External Female Exam: normal external appearance and normal appearance of the urethra Speculum Exam - Vagina: normal appearance of the vagina, normal palpation, no lesions and no masses Speculum Exam - Cervix: normal appearance of the cervix, normal palpation, no lesions, no masses and nontender Bimanual exam- vagina & uterus: normal bimanual exam, normal palpation, uterine size normal, normal palpation, uterine shape normal, No Cervical tenderness present and non-tender Bimanual Exam- Adnexa, other: normal adnexae Back/Spine/Pelvis Back: no CVA tenderness Assessment & Plan Assessment & Plan (1) Endometrial thickening on ultrasound: Comment: With endometrial calcification on CT scan No vaginal bleeding Postmenopausal Code(s): R93.89 - Abnormal findings on diagnostic imaging of other specified body structures Category: Medical Plan: The patient will bring back next visit the report of the pelvic ultrasound co testing and screening mammogram Discussed with the patient endometrial thickness above 4 mm in menopause , the differential diagnosis of a thickened endometrium includes but not limited to endometrial polyp, hyperplasia or carcinoma. Explained to the patient that endometrial each thickness is less predictive of endometrial neoplasia in asymptomatic patients, i.e. those without postmenopausal uterine bleeding. The sensitivity and specificity for detecting endometrial carcinoma at an endometrial thickness of >= 5mm was 83 and 72 percent, respectively; this is lower than in patients with bleeding. Studies have shown that postmenopausal patients without uterine bleeding who thick endometrium had an endometrial carcinoma risk of 6-7% percent; this risk is similar to postmenopausal patients with bleeding and an endometrial thickness >5 mm. Recommended endometrial sampling to rule endometrial pathology via either office endometrial biopsy or diagnostic hysteroscopy/D&C with possible polypectomy/myomectomy. All pros and cons, risks and benefits of each approach were discussed with the patient, the patient decided to proceed with endometrial biopsy. Instructions given the patient to schedule a follow-up appointment a week. All questions answered, the patient verbalized (2) Bilateral inguinal hernia: Code(s): K40.20 - Bilateral inguinal hernia, without obstruction or gangrene, not specified as recurrent Category: Medical Plan: The patient has an appointment with General surgery at [place] and is scheduled inguinal hernia repair (3) Atrophic vaginitis: Comment: History of breast cancer Code(s): N95.2 - Postmenopausal atrophic vaginitis Category: Medical Plan: Discussed with the patient the finding on pelvic exam showing atrophic vaginitis, discussed with the patient that estrogen is a contraindication patient was breast cancer. Coding Level of Care Code New Pt Level 3 (72701) Diagnoses Endometrial thickening on ultrasound R93.89 Bilateral inguinal hernia K40.20 Atrophic vaginitis N95.2
== END 2023-08-30 13:11 | disposition home or self-care (01) ==
PROVIDERS: PCP Physician Assistant; Visit Provider Obstetrics & Gynecology
DX: R93.89 Abnormal findings on diagnostic imaging of other specified body structures (principal); K40.20 Bilateral inguinal hernia, without obstruction or gangrene, not specified as recurrent; N95.2 Postmenopausal atrophic vaginitis
CPT/HCPCS: 99203

== ENCOUNTER → 2023-08-30 12:13 | Outpatient (BNVA) | payer MEDICARE, MEDICAID, SELFPAY | PROVIDERS: PCP Physician Assistant; Visit Provider Obstetrics & Gynecology | DX: R93.89 Abnormal findings on diagnostic imaging of other specified body structures (principal); K40.20 Bilateral inguinal hernia, without obstruction or gangrene, not specified as recurrent; N95.2 Postmenopausal atrophic vaginitis | CPT/HCPCS: 99202 ==

== ENCOUNTER 2023-09-05 10:27 | Outpatient (AMB) | payer MEDICARE, MEDICAID, SELFPAY ==
[2023-09-05 10:30] VITALS: BP 108/80; BMI 34.9
--- NOTE | 2023-09-05 10:30 | A.OFFPC_ITS ---
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 Accompanied by: Self / Same As Patient Allergies barium sulfate Allergy (Unknown, Verified 09/05/23 10:44) Unknown penicillin V Allergy (Unknown, Verified 09/05/23 10:44) Unknown pregabalin Allergy (Unknown, Verified 09/05/23 10:44) Unknown Sulfa (Sulfonamide Antibiotics) Allergy (Unknown, Verified 09/05/23 10:44) Unknown vancomycin Allergy (Unknown, Verified 09/05/23 10:44) Unknown varenicline Allergy (Unknown, Verified 09/05/23 10:44) Unknown Medication List - Last Reconciled 09/05/23 by Sincere Ray PA-C albuterol sulfate 90 mcg/actuation 1 puff PO QID atorvastatin 20 mg PO DAILY 90 days dicyclomine 10 mg PO TID ibuprofen 400 mg PO Q8H PRN oxybutynin chloride ER 10 mg PO DAILY 90 days oxycodone-acetaminophen 7.5-325 mg 1 tab PO BID PRN 7 days peg 3350-electrolytes 236-22.74-6.74 -5.86 gram (GaviLyte-G) mL PO sertraline 50 mg PO DAILY 90 days Symbicort 80-4.5 mcg/actuation (budesonide-formoterol) 2 puffs inhalation BID 30 days NS tirzepatide (weight loss) (Zepbound) 2.5 mg (0.5 mL) subcut QWEEK 4 weeks Tobacco use date assessed: 06/05/23 Dental Screening Dental Screen Date: 06/05/23 HPI f/u weight check HPI Details Patient is a 63 year-old female here today for a f/u visit ?Patient has a past history significant for lumbar radiculopathy, fibromyalgia, hyperlipidemia, former smoker, history of breast cancer, pulmonary nodule, chronic plantar facs Concerns--> Reports she has been having abd pain and bloating , chronic diarrhea/loose stool over the last several years. She reports her symptoms have only gotten worse. She has underwent a CT of abdomen and pelvis that is did show bilateral fat containing inguinal hernias. Of note was some calcifications in her endometrium, and a 3 mm right lower lobe pulmonary nodule. Inguinal hernia--now followed by general surgeon at [facility] and will be due for inguinal hernia repair. She is told to lose 40-50 lb before the surgery. She is thus started GLP 1 ( mounjauro) though has not been covered through insurance. She reports she lost pain due to decreased appetite secondary to her chronic lower lumbar spine pain. She has used phentermine in the past with good effect and is interested in restarting this medication. 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 Brown)- with a former smoker and had been following her pulmonary nodules for years before. .. Endometrial calcifications- incidental finding on CT abdomen and pelvis. She was due for biopsy though has had no luck with [place] finance vice president. She would like to establish care here at [place] with finance vice president and possibly get endometrial biopsy. Of note to his no menstrual bleeding Has establish care with [place] finance vice president. Is awaiting to review records of pelvic ultrasound CHRONIC MEDICAL CONDITIONS--> .. Lumbar radiculopathy: She reports she has been discontinued from pain management clinic. She reports having a clean urine . 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 ? Patient was followed opiate pain management program and continues on oxycodone 7.5 mg to which she is planning on weaning completely off of over the next year.?? She has been responsible for pill counts.? SHE NOW IS ASKING IF PCP CAN NOT MANAGE HER NARCOTIC PAIN MEDICATION. She has been using oxycodone on a limited basis for her pain She does report having side effects to Cymbalta, gabapentin, Lyrica. She is now interested in starting physical therapy [facility] Medical History SAURAV (obstructive sleep apnea) Anxiety and depression Spondylosis, lumbar, with myelopathy Disc degeneration, lumbar Chronic pain syndrome Fibromyalgia Plantar fasciitis Sacroiliitis Plantar fasciitis, bilateral Paresthesias Lumbar radiculopathy Cyst of uterus Breast cancer Neuropathy Pulmonary nodule Surgical History History of bilateral breast reduction surgery History of vocal cord polypectomy History of 2 sections Family History Father Alive and well Mother No problems noted. Social History Household Members Other:: with daughter Housing: House Alcohol intake: never Patient Tobacco Use Status: Former Tobacco user Cigarettes Per Day: 10 e-Cigarette/Vaping Use: Never Used Second Hand Smoke Exposure: Yes service: No Current occupational status: disabled Current occupational exposures/hazards: No Cognitive needs: No Hearing needs: No Vision needs: Yes (Glasses) Questionnaire Thrive Questionnaire Date Thrive assessed: 06/05/23 IVAN-7 AMB Questionnaire IVAN-7 Date IVAN - 7 assessed: 06/05/23 Source: Developed by Drs. Jasbir Andersen, Purvi Dumont, Grzegorz Wu and colleagues, with an educational brian from [employer] Review of Systems Const Denies headache(s) Eyes Denies loss of vision ENT Denies vertigo, Denies dizziness, Denies headache(s) and Denies sore throat Card Denies chest pain, Denies leg edema and Denies lightheadedness Resp Denies cough, Denies hemoptysis and Denies wheezing GI Denies abdominal pain, Denies melena, Denies constipation, Denies diarrhea and Denies vomiting Denies urinary frequency, Denies dysuria and Denies urinary urgency Musc Reports back pain, Denies arthralgias, Denies joint swelling, Denies numbness and Denies tingling Neuro Denies Abnormal speech present, Denies behavioral changes, Denies vertigo, Denies dizziness, Denies headache(s), Denies loss of vision, Denies memory loss, Denies numbness and Denies tingling Psych Denies anxiety, Denies behavioral changes, Denies depression, Denies memory loss and Denies panic attacks Mauricio/Lymph Denies easy bleeding and Denies easy bruising Aller/Immun Denies wheezing Physical exam (Primary Care) Vital Signs: Last Vital Signs BP 108/80 09/05/23 10:30 Oxygen Delivery Method Room Air 09/05/23 10:30 BMI result Body Mass Index 34.9 Tobacco/Smoking Status: Tobacco use Status Tobacco use date assessed 06/05/23 09/05/23 10:31 Patient Tobacco Use Status Former Tobacco user 09/05/23 10:31 e-Cigarette/Vaping Use Never Used 09/05/23 10:31 Thrive Assessment: Date of Thrive Assessment Date Thrive assessed 06/05/23 09/05/23 10:31 Const General: healthy appearing, no acute distress, alert and awake Nutritional Appearance: well nourished Orientation/consciousness: oriented to person, oriented to place and oriented to time HENMT Ears: TM's normal bilaterally General nose exam: Normal nasal mucous membranes and turbinates present Eyes Conjunctivae: conjunctivae normal Sclerae: sclerae normal Pupils: Equal, round and reactive pupils present Neck Neck: Yes no lymphadenopathy and Yes no JVD Thyroid: Thyroid normal Carotids: no bruits Resp Effort & Inspection: normal respiratory effort and not tachypneic Auscultation: no crackles, no rales, no rhonchi and no wheezes Cardio Rate: regular rate Rhythm: regular rhythm Heart sounds: no murmurs and normal S1 and S2 GI Palpation (GI): Soft to palpation, nontender, no hepatomegaly and no splenomegaly Auscultation: normal bowel sounds Skin General skin exam: no rashes or lesions noted and dry skin Neuro General: oriented to person, oriented to place and oriented to time Cranial nerves: Yes Equal, round and reactive pupils present Speech: No Abnormal speech present Gait exam (Neuro): Normal gait present Motor exam (neuro): no tremor noted Extrem Right upper extremity: full ROM Left upper extremity: full ROM Right lower extremity: full ROM; no edema Left lower extremity: full ROM; no edema Psych Mental Status: mental status grossly normal Speech and movement: Normal speech and movement present Affect: normal affect Attitude: cooperative Thought process: Normal thought process present Assessment and Plan Assessment & Plan (1) Endometrial mass: Code(s): N94.89 - Other specified conditions associated with female genital organs and menstrual cycle Plan: Has establish care with [place] finance vice president.. Noted an endometrial calcified mass. Will need to bring in pelvic ultrasound results from outside facility.. She will likely need endometrial biopsy (2) Inguinal hernia: Code(s): K40.90 - Unilateral inguinal hernia, without obstruction or gangrene, not specified as recurrent Qualifiers: Laterality: bilateral Obstruction and gangrene presence: without obs truction or gangrene Recurrence: non-recurrent Qualified Code(s): K40.20 - Bilateral inguinal hernia, without obstruction or gangrene, not specified as recurrent Plan: She is due for inguinal repair surgery in the fall. She plans on trying to lose significant amount of weight before surgery-- (was told about 50 lb). We have tried to prescribe her GLP 1 to help her with weight loss though has not been covered by insurance. She has used phentermine in the past with decent results (3) Obese: Code(s): E66.9 - Obesity, unspecified Qualifiers: Body mass index: BMI 35.0-35.9 Obesity classification: adult class 2 (BMI 35 - 39.9) Obesity type: due to excess calories Serious obesity comorbidity presence: without serious comorbidity Qualified Code(s): E66.09 - Other obesity due to excess calories; Z68.35 - Body mass index [BMI] 35.0-35.9, adult Plan: As above. Has lost weight since last office visit due to low appetite secondary to her chronic severe pain in her back. Patient does understand her BMI is well over 30 will work on being more physically active and adapting to better eating habits to reduce her weight (4) Lumbar spondylosis: Code(s): M47.816 - Spondylosis without myelopathy or radiculopathy, lumbar region Plan: She continues to have lower lumbar spine pain that causes some significant disability. She was followed by [facility] pain management in the past and was receiving oxycodone to use on a as needed basis. She was not interested in injections as she is very afraid of needles She has been without any pain medication for quite some time now and is interested in restarting on an as needed basis for pain scales of 8-10. Medications: New phentermine must administer 30 minutes before or 1-2 hours after breakfast 37.5 mg PO DAILY 90 tabs 0RF 90 days E66.09 - Other obesity due to excess calories, E78.2 - Mixed hyperlipidemia, G47.30 - Sleep apnea, unspecified, K40.20 - Bilateral inguinal hernia, without obstruction or gangrene, not specified as recurrent, Z68.35 - Body mass index [BMI] 35.0-35.9, adult Refilled oxybutynin chloride ER 10 mg PO DAILY 90 tabs 2RF 90 days N31.9 - Neuromuscular dysfunction of bladder, unspecified atorvastatin 20 mg PO DAILY 90 tabs 1RF 90 days E78.2 - Mixed hyperlipidemia Discontinued tirzepatide (weight loss) (Zepbound) Discontinued Reason: Doctor's Order 2.5 mg (0.5 mL) subcut QWEEK 4 weeks 2 mL 0RF E66.09 - Other obesity due to excess calories, Z68.35 - Body mass index [BMI] 35.0-35.9, adult Coding Level of Care Code Est Pt Level 4 (83416) Diagnoses Endometrial mass N94.89 Non-recurrent bilateral inguinal hernia without obstruction or gangrene K40.20 Laterality: bilateral Obstruction and gangrene presence: without obstruction or gangrene Recurrence: non-recurrent Class 2 obesity due to excess calories without serious comorbidity with body mass index (BMI) of 35.0 to 35.9 in adult E66.09; Z68.35 Body mass index: BMI 35.0-35.9 Obesity classification: adult class 2 (BMI 35 - 39.9) Obesity type: due to excess calories Serious obesity comorbidity presence: without serious comorbidity Lumbar spondylosis M47.816
== END 2023-09-05 11:13 | disposition home or self-care (01) ==
PROVIDERS: PCP Physician Assistant; Visit Provider Physician Assistant
DX: N94.89 Other specified conditions associated with female genital organs and menstrual cycle (principal); K40.20 Bilateral inguinal hernia, without obstruction or gangrene, not specified as recurrent; E66.09 Other obesity due to excess calories; Z68.35 Body mass index [BMI] 35.0-35.9, adult; M47.816 Spondylosis without myelopathy or radiculopathy, lumbar region
CPT/HCPCS: 99214

== ENCOUNTER 2023-09-06 12:07 | Outpatient (AMB) | payer MEDICARE, MEDICAID, SELFPAY ==
[2023-09-06 12:08] VITALS: BP 124/88; BMI 34.9
--- NOTE | 2023-09-06 12:08 | MHC.OFFVIS ---
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: [employer] Present Allergies barium sulfate Allergy (Unknown, Verified 09/06/23 12:08) Unknown penicillin V Allergy (Unknown, Verified 09/06/23 12:08) Unknown pregabalin Allergy (Unknown, Verified 09/06/23 12:08) Unknown Sulfa (Sulfonamide Antibiotics) Allergy (Unknown, Verified 09/06/23 12:08) Unknown vancomycin Allergy (Unknown, Verified 09/06/23 12:08) Unknown varenicline Allergy (Unknown, Verified 09/06/23 12:08) Unknown Is last menstrual period known: Yes Last menstrual period: 01/08/20 Post menopausal: No Patient : No Do you need a note to return to daycare/school/sports/work: Yes (for surgery on sunday) HPI Comments Details: The patient is presenting for preop hysteroscopy/Dilatation & Curettage possible polyplectomy & for Novasure Endometrial Ablation. The work up done included endometrial biospy, TSH, HCG and GC/CT all were negative. Ultrasound showed a endometrial polyp measuring 2.7 cm. The patient is not interested in future conception and understands that while Endometrial Ablation is not a method of contraception it willl lower her chance of conception. [facility] Medical History SAURAV (obstructive sleep apnea) Anxiety and depression Spondylosis, lumbar, with myelopathy Disc degeneration, lumbar Chronic pain syndrome Fibromyalgia Plantar fasciitis Sacroiliitis Plantar fasciitis, bilateral Paresthesias Lumbar radiculopathy Cyst of uterus Breast cancer Neuropathy Pulmonary nodule Surgical History History of bilateral breast reduction surgery History of vocal cord polypectomy History of 2 sections Family History Father Alive and well Mother No problems noted. Social History Household Members Other:: with daughter Housing: House Alcohol intake: never Patient Tobacco Use Status: Former Tobacco user Cigarettes Per Day: 10 e-Cigarette/Vaping Use: Never Used Second Hand Smoke Exposure: Yes service: No Current occupational status: disabled Current occupational exposures/hazards: No Cognitive needs: No Hearing needs: No Vision needs: Yes (Glasses) Female Reproductive History Menstrual Date of last menstrual period: 01/08/20 Total pregnancies: 2 Full term: 2 Review of Systems Card Reports as per HPI and Reports no additional complaints Resp Reports as per HPI and Reports no additional complaints GI Reports as per HPI and Reports no additional complaints Reports as per HPI Physical Exam Vital Signs: Last Vital Signs BP 124/88 09/06/23 12:08 BMI result Body Mass Index 34.9 Const General: cooperative, healthy appearing and comfortable Resp Effort & Inspection: normal respiratory effort Auscultation: clear to auscultation bilaterally Percussion: percussion normal Cardio Palpation: normal PMI Rate: regular rate Rhythm: regular rhythm Heart sounds: no murmurs and no rubs Peripheral pulses: Peripheral pulses 2+ throughout GI Inspection: Yes normal to inspection Palpation (GI): Soft to palpation, nontender, no guarding, not rigid and No hepatosplenomegaly present Percussion: Yes normal to percussion Auscultation: normal bowel sounds Rectal Exam - Female: deferred Assessment & Plan Assessment & Plan (1) Lesion of cervix: Code(s): N88.9 - Noninflammatory disorder of cervix uteri, unspecified Category: Medical Plan: Discussed with the patient the results the ultrasound showing 0.6 x 0.7 cm with shadowing and minimal flow echogenic lesion within the cervix. (2) Endometrial thickening on ultrasound: Comment: Endometrial stripe by ultrasound 1 cm No vaginal bleeding Postmenopausal Code(s): R93.89 - Abnormal findings on diagnostic imaging of other specified body structures Category: Medical Plan: Discussed with the patient the pelvic ultrasound findings, the endometrial stripe thickenss measured by ultrasound was more than 4mm. The negative predictive value, positive predictive value, Sensitivity, specificity of using ultrasound measurement of endometrial stripe to detecting endometrial pathology including hyperplasia , polyp or cancer were discussed with the patient. Recommended to the patient that the next step is an endometrial sampling via hysteroscopy D&C possible polypectomy versus endometrial biopsy to r/o endometrial pathology including hyperplasia or cancer. All the pros and cons risks and benefits of each approach were discussed with the patient, endometrial biopsy being less invasive, office procedure with less sensitivity and inability diagnose a polyp and removal versus hysteroscopy done under anesthesia more invasive more sensitive to endometrial cancer and possibility of diagnosing and endometrial polyp with the possibility of polypectomy. All questions were answered pt verbalized understanding and decided to proceed with hysteroscopy D&C possible polypectomy/myomectomy. Discussed with the patient the procedure , all benefits and risks including but not limited to inability to complete the procedure , insufficient endometrial tissue for a complete evaluation of the endometrial cavity , bleeding, infection, possible need for blood transfusion with all its risk ( HIV,syphilis, Hepatitis, anaphylaxis shock, others..), injury to bladder, rectum, possible need for laparoscopy/laparotomy or hysterectomy. The patient verbalized understanding and signed the consent. Instructions given the patient to stay NPO after midnight the day prior to the procedure and to take only the specific medication (s) discussed the morning of the surgical procedure and to schedule a 2 week postoperative appointment Coding Level of Care Code Est Pt Level 3 (45355) Diagnoses Lesion of cervix N88.9 Endometrial thickening on ultrasound R93.89
== END 2023-09-06 12:49 | disposition home or self-care (01) ==
LOC: HO.HWS 12:07
PROVIDERS: PCP Physician Assistant; Visit Provider Obstetrics & Gynecology
DX: N88.9 Noninflammatory disorder of cervix uteri, unspecified (principal); R93.89 Abnormal findings on diagnostic imaging of other specified body structures
CPT/HCPCS: 99213

== ENCOUNTER → 2023-09-06 12:07 | Outpatient (BNVA) | payer MEDICARE, MEDICAID, SELFPAY | PROVIDERS: PCP Physician Assistant; Visit Provider Obstetrics & Gynecology | DX: N88.9 Noninflammatory disorder of cervix uteri, unspecified (principal); R93.89 Abnormal findings on diagnostic imaging of other specified body structures | CPT/HCPCS: 99212 ==

== ENCOUNTER 2023-09-11 13:00 | Day surgery (SDC) | payer MEDICARE, MEDICAID, SELFPAY ==
[2023-09-11] VITALS (9 sets, daily range): BP systolic 112–157; BP diastolic 58–96; PULSE 61–78; RESP 16–18; TEMP 36.1–36.3; O2SAT 97–98; BMI 35.7
[2023-09-11] MEDS: Lactated Ringers 1,000 ML 80 ML IVCONT (13:20)
--- NOTE | 2023-09-11 13:50 | HO.ANESPROP2 ---
HPI - Anesthesia Eval Consult details Narrative: 63 yo female patient for D&C, Hysteroscopy PMFSH Active Problems Active Problems: All Active Problems Atrophic vaginitis (Acute) Perineal irritation (Acute) Bilateral inguinal hernia (Acute) Lesion of cervix (Acute) Endometrial thickening on ultrasound (Acute) Inguinal hernia (Acute) Endometrial mass (Acute) Urinary incontinence (Acute) Renal cyst, right (Acute) Right lower lobe pulmonary nodule (Acute) SOB (shortness of breath) (Acute) Fatty liver disease, nonalcoholic (Acute) Elevated liver enzymes (Acute) Abdominal bloating (Acute) Vertebrogenic low back pain (Acute) Bronchitis (Acute) Sacroiliitis, not elsewhere classified (Acute) Pre-procedural examination (Acute) Former smoker (Acute)- quit a few months ago Left inguinal hernia (Acute) Ankle pain, right (Acute) Fibromyalgia (Acute) Asthma (Acute) Anxiety (Acute) Depression (Acute) SAURAV- not using CPAP. Cannot tolerate Screening for diabetes mellitus (DM) (Acute) Screening for hypercholesterolemia (Acute) Screening for hypothyroidism (Acute) Smoker - Quit few months ago IBS (irritable bowel syndrome) (Acute) Neurogenic bladder (Acute) Obese BMI 35.7 Lateral epicondylitis of right elbow (Acute) Annual physical exam (Acute) IVAN (generalized anxiety disorder) (Acute) HLD (hyperlipidemia) (Acute) Pulmonary nodule (Acute) Sacroiliac joint dysfunction (Acute) Opioid contract exists (Acute) Lumbar spondylosis (Acute) Encounter for general adult medical examination with abnormal findings (Acute) Right foot pain (Acute) Spondylosis, lumbar, with myelopathy (Acute) Disc degeneration, lumbar (Acute) Chronic pain syndrome (Acute) Fibromyalgia (Acute) Plantar fasciitis (Acute) Sacroiliitis (Acute) Plantar fasciitis, bilateral (Acute) Paresthesias (Acute) Lumbar radiculopathy (Acute) Past Medical History Medical History SAURAV (obstructive sleep apnea) Anxiety and depression Spondylosis, lumbar, with myelopathy Disc degeneration, lumbar Chronic pain syndrome Fibromyalgia Plantar fasciitis Sacroiliitis Plantar fasciitis, bilateral Paresthesias Lumbar radiculopathy Cyst of uterus Breast cancer Neuropathy Pulmonary nodule Family History Family History Father Alive and well Mother No problems noted. Family history of problems with anesthesia: No Surgical History Surgical History History of bilateral breast reduction surgery History of vocal cord polypectomy History of 2 sections History of Problems with Anesthesia: No Social History Social History Household Members Other:: with daughter Housing: House Alcohol intake: never Patient Tobacco Use Status: Former Tobacco user Cigarettes Per Day: 10 e-Cigarette/Vaping Use: Never Used Second Hand Smoke Exposure: Yes Use of substances other than those prescribed or required for medical reasons: No Are you DNR?: No Advance Directives: No Advance Directives Information Provided: Yes Advance Directives on File: No service: No Current occupational status: disabled Current occupational exposures/hazards: No Cognitive needs: No Hearing needs: No Vision needs: Yes (Glasses) Meds Allergies Allergy/AdvReac Type Severity Reaction Status Date / Time barium sulfate Allergy Unknown Unknown Verified 09/06/23 12:08 penicillin V Allergy Unknown Unknown Verified 09/06/23 12:08 pregabalin Allergy Unknown Unknown Verified 09/06/23 12:08 Sulfa (Sulfonamide Allergy Unknown Unknown Verified 09/06/23 12:08 Antibiotics) vancomycin Allergy Unknown Unknown Verified 09/06/23 12:08 varenicline Allergy Unknown Unknown Verified 09/06/23 12:08 Active Medications: Current Medications Lactated Ringer's (Lr) 1,000 mls @ 80 mls/hr IVCONT .[id number] VIVIANE Last Admin: 09/11/23 13:20 Dose: 80 mls/hr Home Medications ?Medication ?Instructions ?Recorded ?Confirmed ?Last Taken ?Type peg 3350-electrolytes 236 ml PO 08/09/23 09/05/23 Unknown History gram-22.74 gram-6.74 gram-5.86 gram solution (GaviLyte-G) Exam Height,Weight and Vital Signs: Height 5 ft 7 in Weight 103.419 kg Last Vital Signs Temp 97.4 F 09/11/23 13:17 Pulse 68 09/11/23 13:17 Resp 16 09/11/23 13:17 BP 144/87 H 09/11/23 13:17 Pulse Ox 97 09/11/23 13:17 O2 Del Method Room Air 09/11/23 13:17 Airway Mallampati Class: II TM Dist: >3cm Neck ROM: Full Loose/Missing/Broken Teeth: No (Denies broken, loose,missing teeth) Heart: RRR Lungs: CTAB Assessment and Plan Assessment Anesthesia Assessment: Anesthesia Plan Discussed and Chart Reviewed Final Anesthetic Review Family History of Problems with Anesthesia: No History of Problems with Anesthesia: No NPO: Yes ASA Class: III Final Preanesthetic Review: No Changes in Pt Med Stat, Meds/Allgs Chart Reviewed, Consent Obtained/Reviewed and Anes Risks/Benef Reviewed Patient Risk: Intermediate Procedure Risk: Low Assessment/Block/Sedation in SS: Assess/Block/Sedation-SS Anesthetic Plan Anesthetic Plan: GA Disposition: Standard PACU
--- NOTE | 2023-09-11 14:13 | MHC.SHP ---
Pre-Procedural Eval Section A - 24 Hr Update-Section A only Date of Service: 09/11/23 The patient is an INPATIENT: No Changes since office visit: No Cold of Flu in the past 2 weeks, No New Medical Problems, No Changes in Medication and No Patient answered all questions The patient has been examined within 24 hours of the surgical procedure. The History & Physical has been completed within 30 days and I have reviewed it.: Yes Section B - Complete if H&P > 30 days Chief Complaint: Polyp of corpus uteri Allergies: Allergies Allergy/AdvReac Type Severity Reaction Status Date / Time barium sulfate Allergy Unknown Unknown Verified 09/06/23 12:08 penicillin V Allergy Unknown Unknown Verified 09/06/23 12:08 pregabalin Allergy Unknown Unknown Verified 09/06/23 12:08 Sulfa (Sulfonamide Allergy Unknown Unknown Verified 09/06/23 12:08 Antibiotics) vancomycin Allergy Unknown Unknown Verified 09/06/23 12:08 varenicline Allergy Unknown Unknown Verified 09/06/23 12:08 Plan Diagnosis/Plan: Unchanged I have reviewed the history and physical and performed a pertinent physical examination on my patient. No changes have occurred unless specified. Time Spent With Patient Time: Total time managing care of this patient today ____ minutes.
--- NOTE | 2023-09-11 15:04 | PM.OP ---
Brief Operative Note Date of Service: 09/11/23 Pre-op diagnosis: Thickened abnormal endometrium with endocervical lesion by ultrasound Post-op diagnosis: same (Endometrial polyp protruding through the endocervix) Procedure: Hysteroscopy D&C, Polypectomy Surgeon: Garrett Leung MD Anesthesia: GLMA Was an Inspection And Testing Supervisor used for this Procedure?: No Estimated blood loss (mL): 0 Pathology: other (Endometrial Scrapping. Endometrial Polyp) Condition: stable Disposition: PACU
--- NOTE | 2023-09-11 15:05 | P.OP_ITS ---
Operative Note Operative Note Date of Service: 09/11/23 Narrative: Preop Diagnosis: Abnormal endometrial thickness by US Operation: Diagnostic Hysteroscopy, Dilataion & Curettage and polypectomy Post Op Diagnosis: Endometrial Polyp protruding through the endocervix QBL: Minimal Anesthesia: GLMA Surgeon: Garrett Leung MD Communications Coordinator: None Complication: None Pathology: Endometrial Scrapings, Endometrial polyp Procedure: The patient was put in the dorsal lithotomy position, scrubbed, and draped in the usual manner. A sterile speculum was inserted in the patient's vagina. The anterior lip of the cervix was grasped with a single tooth tenaculum. The cervix was dilated up to 5 mm, then the scope was inserted in the patient's uterus. Inspection revealed endometrial polyp. The Myosure Reach device was used; it was introduced through the operative channel and polypectomy done with no complications. The scope was then taken out from the uterine cavity, sharp curettings was carried on with minimal to moderate amount of tissues retrieved. At the end of the procedure, all instruments were taken out of the patient uterine and vaginal cavity. The single tooth tenaculum was removed and homeostasis was assured using pressure,. The patient tolerated the procedure well and was transferred to the PACU in a stable condition.
[2023-09-11] MEDS: oxyCODONE HCl Immed Release 5 MG TABLET PO (15:20)
[2023-09-11] MEDS: fentaNYL citrate/PF 100 MCG/2 ML VIAL 25 MCG IVPUSH ×2 (15:20→15:25)
[2023-09-11] MEDS: Acetaminophen 325 MG TABLET 650 MG PO (15:23)
== END 2023-09-11 16:25 | disposition home or self-care (01) ==
PROVIDERS: PCP Physician Assistant; Visit Provider Obstetrics & Gynecology
PROC: 0UDB8ZZ Extraction of Endometrium, Via Natural or Artificial Opening Endoscopic (ICD-10-PCS; CPT 58558; principal; 2023-09-11 14:30)
DX: N84.0 Polyp of corpus uteri (principal); M79.7 Fibromyalgia; M72.2 Plantar fascial fibromatosis; G89.4 Chronic pain syndrome; M51.16 Intervertebral disc disorders with radiculopathy, lumbar region; G62.9 Polyneuropathy, unspecified; Z85.3 Personal history of malignant neoplasm of breast; G47.33 Obstructive sleep apnea (adult) (pediatric); F41.8 Other specified anxiety disorders; Z79.891 Long term (current) use of opiate analgesic; Z79.51 Long term (current) use of inhaled steroids; Z79.899 Other long term (current) drug therapy; Z88.0 Allergy status to penicillin; Z88.2 Allergy status to sulfonamides; Z88.1 Allergy status to other antibiotic agents; Z88.8 Allergy status to other drugs, medicaments and biological substances; Z87.891 Personal history of nicotine dependence; Z98.890 Other specified postprocedural states
CPT/HCPCS: 58558; 88305; J1100; J2405; J2704; J3010

== ENCOUNTER → 2023-09-11 13:00 | Outpatient (BNV) | payer MEDICARE, MEDICAID, SELFPAY | PROVIDERS: PCP Physician Assistant; Visit Provider Obstetrics & Gynecology | DX: N84.0 Polyp of corpus uteri (principal) | CPT/HCPCS: 58558 ==

== ENCOUNTER 2023-09-27 07:57 | Outpatient (AMB) | payer MEDICARE, MEDICAID, SELFPAY ==
--- NOTE | 2023-09-27 08:05 | A.OFFVIS_ITS ---
Vital Signs 09/27/23 08:07 Height 5 ft 7 in Weight 223 lb BMI 34.9 BP 122/72 Intake Visit Reasons: Hysteroscopy Follow up Supervisor Laboratory Required: No Information Interpreted: non-clinical & clinical Accompanied by: Self / Same As Patient Allergies barium sulfate Allergy (Unknown, Verified 09/27/23 08:08) Unknown penicillin V Allergy (Unknown, Verified 09/27/23 08:08) Unknown pregabalin Allergy (Unknown, Verified 09/27/23 08:08) Unknown Sulfa (Sulfonamide Antibiotics) Allergy (Unknown, Verified 09/27/23 08:08) Unknown vancomycin Allergy (Unknown, Verified 09/27/23 08:08) Unknown varenicline Allergy (Unknown, Verified 09/27/23 08:08) Unknown Post menopausal: Yes HPI Comments Details: The patient is presenting post hysteroscopy D&C no complaints minimal vaginal bleeding no feverishness chills or abdominal pain. The pathology showed the following: A. Endometrium, polypectomy: Fragments of endometrial polyp; no atypia identified. B. Endometrium, curettage: - Superficial strips and fragments of benign endometrium; no atypia or hyperplasia identified. - Strips of endocervical and squamous epithelium within normal limits. [facility] Medical History SAURAV (obstructive sleep apnea) Anxiety and depression Spondylosis, lumbar, with myelopathy Disc degeneration, lumbar Chronic pain syndrome Fibromyalgia Plantar fasciitis Sacroiliitis Plantar fasciitis, bilateral Paresthesias Lumbar radiculopathy Cyst of uterus Breast cancer Neuropathy Pulmonary nodule Surgical History History of bilateral breast reduction surgery History of vocal cord polypectomy History of 2 sections Family History Father Alive and well Mother No problems noted. Social History Household Members Other:: with daughter Housing: House Alcohol intake: never Patient Tobacco Use Status: Former Tobacco user Cigarettes Per Day: 10 e-Cigarette/Vaping Use: Never Used Second Hand Smoke Exposure: Yes service: No Current occupational status: disabled Current occupational exposures/hazards: No Cognitive needs: No Hearing needs: No Vision needs: Yes (Glasses) Review of Systems Const All systems reviewed & are unremarkable except as noted in HPI and below Reports as per HPI and Reports no additional complaints GI Reports no additional complaints Reports no additional complaints Physical Exam Vital Signs: Last Vital Signs BP 122/72 09/27/23 08:07 BMI result Body Mass Index 34.9 Assessment & Plan Assessment & Plan (1) Endometrial thickening on ultrasound: Comment: Endometrial stripe by ultrasound 1 cm No vaginal bleeding Status post hysteroscopic polypectomy D&C-benign pathology Code(s): R93.89 - Abnormal findings on diagnostic imaging of other specified body structures Category: Medical Plan: Discussed with the patient the results of the pathology. Discussed with the patient the sensitivity, specificity, positive and negative predictive value, of D and C in detecting endometrial pathology including but not limited to endometrial hyperplasia, cancer and other pathology; instructed the patient to call in case vaginal bleeding bleeding recurs, the next step will be to proceed with further endometrial sampling evaluation to rule out endometrial pathology. All questions answered and the patient verbalized understanding and agreed with the plan. Coding Level of Care Code Est Pt Level 3 (33417) Diagnoses Endometrial thickening on ultrasound R93.89
[2023-09-27 08:07] VITALS: BP 122/72; BMI 34.9
== END 2023-09-27 08:15 | disposition home or self-care (01) ==
PROVIDERS: PCP Physician Assistant; Visit Provider Obstetrics & Gynecology
DX: R93.89 Abnormal findings on diagnostic imaging of other specified body structures (principal)
CPT/HCPCS: 99213

== ENCOUNTER → 2023-09-27 07:57 | Outpatient (BNVA) | payer MEDICARE, MEDICAID, SELFPAY | PROVIDERS: PCP Physician Assistant; Visit Provider Obstetrics & Gynecology | DX: R93.89 Abnormal findings on diagnostic imaging of other specified body structures (principal); Z71.2 Person consulting for explanation of examination or test findings | CPT/HCPCS: 99212 ==

== ENCOUNTER 2023-10-18 14:11 | Outpatient (AMB) | payer MEDICARE, MEDICAID, SELFPAY ==
[2023-10-18 14:22] VITALS: BP 136/86; PULSE 88; O2SAT 97; BMI 33.6
--- NOTE | 2023-10-18 14:22 | A.OFFPC_ITS ---
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: No Accompanied by: Self / Same As Patient Allergies barium sulfate Allergy (Unknown, Verified 10/18/23 14:24) Unknown penicillin V Allergy (Unknown, Verified 10/18/23 14:24) Unknown pregabalin Allergy (Unknown, Verified 10/18/23 14:24) Unknown Sulfa (Sulfonamide Antibiotics) Allergy (Unknown, Verified 10/18/23 14:24) Unknown vancomycin Allergy (Unknown, Verified 10/18/23 14:24) Unknown varenicline Allergy (Unknown, Verified 10/18/23 14:24) Unknown Medication List - Last Reconciled 10/18/23 by Sincere Ray PA-C albuterol sulfate 90 mcg/actuation 1 puff PO QID atorvastatin 20 mg PO DAILY 90 days oxybutynin chloride ER 10 mg PO DAILY 90 days oxycodone-acetaminophen 7.5-325 mg 1 tab PO BID PRN 7 days peg 3350-electrolytes 236-22.74-6.74 -5.86 gram (GaviLyte-G) mL PO phentermine 37.5 mg PO DAILY 90 days sertraline 50 mg PO DAILY 90 days Symbicort 80-4.5 mcg/actuation (budesonide-formoterol) 2 puffs inhalation BID 30 days NS Tobacco use date assessed: 06/05/23 Dental Screening Dental Screen Date: 06/05/23 HPI f/u weight check HPI Details Patient is a 63 year-old female here today for a f/u visit ?Patient has a past history significant for lumbar radiculopathy, fibromyalgia, hyperlipidemia, former smoker, history of breast cancer, pulmonary nodule, chronic plantar facs Concerns--> reports having neck pain that radiates down her right upper extremity into her hand. She reports her neck pain does wake her up a few times at night. She denies any recent injury to her head or neck or right shoulder. She believes this is a disc disease in her neck though would like to hold off on physical therapy. For now will like to manage her pain with medication until she is able to get her GI hernia surgery done. Will do physical therapy Inguinal hernia--now followed by general surgeon at [facility] and will be due for inguinal hernia repair. She is told to lose 40-50 lb before the surgery. We have started phentermine 37 mg which has helped her significantly in her weight loss journey. Pulmonary nodule- would like to reestablish care with her network architect manager at [facility] (Dr. Brown)- with a former smoker and had been following her pulmonary nodules for years before. .. Endometrial calcifications- has underwent endometrial biopsies without any notable malignancies CHRONIC MEDICAL CONDITIONS--> .. Lumbar radiculopathy: She reports she has been discontinued from pain ma nagement clinic. She reports having a clean urine . 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 ? Patient was followed opiate pain management program and continues on oxycodone 7.5 mg to which she is planning on weaning completely off of over the next year.?? She has been responsible for pill counts.? SHE NOW IS ASKING IF PCP CAN NOT MANAGE HER NARCOTIC PAIN MEDICATION. She has been using oxycodone on a limited basis for her pain She does report having side effects to Cymbalta, gabapentin, Lyrica. She is now interested in starting physical therapy [facility] Medical History SAURAV (obstructive sleep apnea) Anxiety and depression Spondylosis, lumbar, with myelopathy Disc degeneration, lumbar Chronic pain syndrome Fibromyalgia Plantar fasciitis Sacroiliitis Plantar fasciitis, bilateral Paresthesias Lumbar radiculopathy Cyst of uterus Breast cancer Neuropathy Pulmonary nodule Surgical History History of bilateral breast reduction surgery History of vocal cord polypectomy History of 2 sections Family History Father Alive and well Mother No problems noted. Social History Household Members Other:: with daughter Housing: House Alcohol intake: never Patient Tobacco Use Status: Former Tobacco user Cigarettes Per Day: 10 e-Cigarette/Vaping Use: Never Used Second Hand Smoke Exposure: Yes service: No Current occupational status: disabled Current occupational exposures/hazards: No Cognitive needs: No Hearing needs: No Vision needs: Yes (Glasses) Questionnaire Thrive Questionnaire Date Thrive assessed: 06/05/23 IVAN-7 AMB Questionnaire IVAN-7 Date IVAN - 7 assessed: 06/05/23 Source: Developed by Drs. Jasbir Andersen, Purvi Dumont, Grzegorz Wu and colleagues, with an educational brian from [employer]. Review of Systems Const Denies headache(s) Eyes Denies loss of vision ENT Denies vertigo, Denies dizziness, Denies headache(s) and Denies sore throat Card Denies chest pain, Denies leg edema and Denies lightheadedness Resp Denies cough, Denies hemoptysis and Denies wheezing GI Denies abdominal pain, Denies melena, Denies constipation, Denies diarrhea and Denies vomiting Denies urinary frequency, Denies dysuria and Denies urinary urgency Musc Denies arthralgias, Denies joint swelling, Denies numbness and Denies tingling Neuro Denies Abnormal speech present, Denies behavioral changes, Denies vertigo, Denies dizziness, Denies headache(s), Denies loss of vision, Denies memory loss, Denies numbness and Denies tingling Psych Denies anxiety, Denies behavioral changes, Denies depression, Denies memory loss and Denies panic attacks Mauricio/Lymph Denies easy bleeding and Denies easy bruising Aller/Immun Denies wheezing Physical exam (Primary Care) Vital Signs: Last Vital Signs Pulse 88 10/18/23 14:22 BP 136/86 10/18/23 14:22 Pulse Ox 97 10/18/23 14:22 Oxygen Delivery Method Room Air 10/18/23 14:22 BMI result Body Mass Index 33.6 Tobacco/Smoking Status: Tobacco use Status Tobacco use date assessed 06/05/23 10/18/23 14:23 Patient Tobacco Use Status Former Tobacco user 10/18/23 14:23 e-Cigarette/Vaping Use Never Used 10/18/23 14:23 Thrive Assessment: Date of Thrive Assessment Date Thrive assessed 06/05/23 10/18/23 14:23 Const General: healthy appearing, no acute distress, alert and awake Nutritional Appearance: well nourished Orientation/consciousness: oriented to person, oriented to place and oriented to time HENMT Ears: TM's normal bilaterally General nose exam: Normal nasal mucous membranes and turbinates present Eyes Conjunctivae: conjunctivae normal Sclerae: sclerae normal Pupils: Equal, round and reactive pupils present Neck Other: SOME LIMITATIONS IN HER RANGE OF MOTION DUE TO STIFFNESS AND PAIN. Neck: Yes no lymphadenopathy and Yes no JVD Thyroid: Thyroid normal Carotids: no bruits Resp Effort & Inspection: normal respiratory effort and not tachypneic Auscultation: no crackles, no rales, no rhonchi and no wheezes Cardio Rate: regular rate Rhythm: regular rhythm Heart sounds: no murmurs and normal S1 and S2 GI Palpation (GI): Soft to palpation, nontender, no hepatomegaly and no splenomegaly Auscultation: normal bowel sounds Skin General skin exam: no rashes or lesions noted and dry skin Neuro General: oriented to person, oriented to place and oriented to time Cranial nerves: Yes Equal, round and reactive pupils present Speech: No Abnormal speech present Gait exam (Neuro): Normal gait present Motor exam (neuro): no tremor noted Extrem Right upper extremity: full ROM Left upper extremity: full ROM Right lower extremity: full ROM; no edema Left lower extremity: full ROM; no edema Psych Mental Status: mental status grossly normal Speech and movement: Normal speech and movement present Affect: normal affect Attitude: cooperative Thought process: Normal thought process present Assessment and Plan Assessment & Plan (1) Cervical radiculitis: Code(s): M54.12 - Radiculopathy, cervical region Plan: PATIENT'S SIGNS AND SYMPTOMS MOST CONSISTENT WITH A CERVICAL RADICULITIS. WOULD BENEFIT FROM PHYSICAL THERAPY AT THIS TIME THOUGH PATIENT WOULD LIKE TO HOLD OFF. WILL TREAT HER PAIN WITH MEDICATION AT THIS TIME. She is not interested in any further modalities such as injections or surgery (2) Inguinal hernia: Code(s): K40.90 - Unilateral inguinal hernia, without obstruction or gangrene, not specified as recurrent Qualifiers: Laterality: bilateral Obstruction and gangrene presence: without obstruction or gangrene Recurrence: non-recurrent Qualified Code(s): K40.20 - Bilateral inguinal hernia, without obstruction or gangrene, not specified as recurrent Plan: She is due for inguinal repair surgery in the fall. She plans on trying to lose significant amount of weight before surgery-- (was told about 50 lb). Has started phentermine and has lost 10 lb over last month. She will continue her weight loss journey with phentermine for additional weight loss. Her goal weight is to be a 190 lb so that she is a better candidate for abdominal surgery. (3) Obese: Code(s): E66.9 - Obesity, unspecified Qualifiers: Obesity type: due to excess calories Obesity classification: adult class 2 (BMI 35 - 39.9) Serious obesity comorbidity presence: without serious comorbidity Body mass index: BMI 35.0-35.9 Qualified Code(s): E66.09 - Other obesity due to excess calories; Z68.35 - Body mass index [BMI] 35.0-35.9, adult Plan: As above Medications: New tizanidine 2 mg PO BEDTIME 14 days PRN 14 tabs 1RF muscle spasticity M54.12 - Radiculopathy, cervical region Refilled oxycodone-acetaminophen 7.5-325 mg Partial Fill upon patient request. 1 tab PO BID 7 days PRN 14 tabs 0RF pain M53.3 - Sacrococcygeal disorders, not elsewhere classified Coding Level of Care Code Est Pt Level 4 (28696) Diagnoses Cervical radiculitis M54.12 Non-recurrent bilateral inguinal hernia without obstruction or gangrene K40.20 Laterality: bilateral Obstruction and gangrene presence: without obstruction or gangrene Recurrence: non-recurrent Class 2 obesity due to excess calories without serious comorbidity with body mass index (BMI) of 35.0 to 35.9 in adult E66.09; Z68.35 Obesity type: due to excess calories Obesity classification: adult class 2 (BMI 35 - 39.9) Serious obesity comorbidity presence: without serious comorbidity Body mass index: BMI 35.0-35.9
== END 2023-10-18 14:57 | disposition home or self-care (01) ==
PROVIDERS: PCP Physician Assistant; Visit Provider Physician Assistant
DX: M54.12 Radiculopathy, cervical region (principal); K40.20 Bilateral inguinal hernia, without obstruction or gangrene, not specified as recurrent; E66.09 Other obesity due to excess calories; Z68.35 Body mass index [BMI] 35.0-35.9, adult
CPT/HCPCS: 99214

== ENCOUNTER 2024-05-14 12:07 | Outpatient (REF) | payer MEDICARE, MEDICAID, SELFPAY ==
[2024-05-14 13:43] LABS: Hematocrit 40.8 % (37.0-47.0); Hemoglobin 13.7 g/dl (12.0-16.0); Mean Corpuscular HGB Conc 33.6 g/dl (31.0-35.0); Mean Corpuscular Hemoglobin 29.8 pg (27.0-33.0); Mean Corpuscular Volume 88.9 fL (80.0-98.0); Mean Platelet Volume 10.6 fL (9.4-12.3); Platelet Count 288 X10*3/uL (160-400); Red Blood Count 4.59 X10*6/uL (4.20-5.50); Red Cell Distribution Width 12.6 % (11.0-16.0); White Blood Count 4.5 X10*3/uL (4.8-10.8)
[2024-05-14 14:29] LABS: Alanine Aminotransferase 40 U/L (0-31); Albumin Level 4.1 g/dL (3.5-5.0); Alkaline Phosphatase 89 U/L (39-117); Anion Gap 11 (12-20); Aspartate Amino Transferase 37 U/L (5-31); Bilirubin Total 0.6 mg/dL (0.0-1.0); Blood Urea Nitrogen 11 mg/dL (9-16); Calcium 9.2 mg/dL (8.4-10.2); Carbon Dioxide 27 mmol/L (22-29); Chloride 107 mmol/L (96-108); Cholesterol 162 mg/dL (<200); Estimated Glomerular Filt Rate > 60; Glucose Fasting 94 mg/dL (60-99); HDL Cholesterol 54 mg/dL (>40); Iron 101 mcg/dL (30-160); LDL Cholesterol Calculated 93 mg/dL (<100); Percent Iron Saturation 36 % (15-50); Potassium 4.2 mmol/L (3.3-5.1); Sodium 141 mmol/L (135-145); Total Iron Binding Capacity 282 mcg/dL (228-428); Total Protein 7.3 g/dL (6.5-8.0); Triglycerides 77 mg/dL (<150); Unsaturated Iron Binding 181 ug/dL
--- OUTSIDE RECORDS SUMMARY | 2024-05-14 14:32 | XMS_ITS | Clinical Summary ---
[facility] it Address [address] [place] [address] Care Team Providers Care Engineer Exhauster Name Role Phone Sincere Ray Primary Care Provider Medications dicyclomine (BENTYL) 10 mg capsuleIndicatio ns:Irritable bowel syndrome, unspecified type TAKE 1 CAPSULE BY MOUTH THREE TIMES A DAY ONE HOUR BEFORE MEALS 270 capsule 04/30/2024 Active Surgical History Surgery Date Site/Laterality Comments TUBAL LIGATION PROCEDURE: HISTORICAL TUBAL LIGATION BREAST SURGERY 2005 PROCEDURE: [place] UNLISTED PROCEDURE BREAST; COMMENT: breast reduction SECTION PROCEDURE: HISTORICAL DELIVERY; COMMENT: x2 BREAST LUMPECTOMY 2016 Right PROCEDURE: HISTORICAL BREAST LUMPECTOMY; COMMENT: DCIS [facility] OTHER SURGICAL HISTORY PROCEDURE: HISTORY OTHER; COMMENT: cervical cryosurgery OTHER SURGICAL HISTORY 06/2011 PROCEDURE: HISTORY OTHER; COMMENT: inner and outer uterine cysts removed OTHER SURGICAL HISTORY 2016 PROCEDURE: [place] UNLISTED PROCEDURE LARYNX; COMMENT: vocal cord removal, Dr Cedillo COLONOSCOPY 2017 PROCEDURE: HISTORICAL COLONOSCOPY; COMMENT: rpt 10yrs Medical History Medical History Date Comments Anxiety 05/24/2017 DX:Anxiety Asthma 12/04/2016 DX:Asthma Breast cancer ([facility]/HCC) 10/11/2015 DX:Breas t cancer ([facility]); COMMENT: 08/2015 DCIS lumpectomy, radiation,Tamoxifen, lower-inner quadrant of right breast Colon polyps 12/17/2018 DX:Colon polyps; COMMENT: X2 CN 06/2013 Depression 05/24/2017 DX:Depression Diarrhea 10/31/2018 DX:Diarrhea Fibromyalgia 05/24/2017 DX:Fibromyalgia GERD (gastroesophageal reflux disease) 11/20/2018 DX:GERD (gastroesophageal reflux disease) Headache 05/24/2017 DX:Headache Insomnia 12/17/2018 DX:Insomnia Lumbar radiculopathy 12/17/2018 DX:Lumbar r adiculopathy; COMMENT: Chroni back pain Dr Senior, pain management Neuropathy 12/17/2018 DX:Neuropathy; C OMMENT: Unexplained and atypical, has seen multiple neurologists Obstructive sleep apnea on CPAP 12/17/2018 DX:Obstructive sleep apnea on CPAP 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 Pulmonary nodules 05/24/2017 DX:Pulmonary n odules Tobacco user 04/18/2016 DX:Tobacco user Vitamin D insufficiency 12/17/2018 DX:Vitam in D insufficiency Family History Medical History Relation Name Comments Breast cancer Aunt 1 great Breast cancer Aunt 2 paternal Breast cancer Aunt 3 maternal LULI disease Father Coronary artery disease Maternal Grandmother Heart failure Mother COPD, CAD, A f ib Colon cancer Neg Hx Ovarian cancer Neg Hx Relation Name Status Comments Aunt 1 great Alive Aunt 2 paternal Aunt 3 maternal Father Father's side Maternal Grandmother Mother Social History Tobacco Use Types Packs/Day Years Used Date Smoking Tobacco: Former Cigarettes Smokeless Tobacco: Never Alcohol Use Standard Drinks/Week Comments No 0 (1 standard drink = 0.6 oz pur e alcohol) Comments Unknown Sex and Gender Information Value Date Recorded Sex Assigned at Not on file Legal Sex Female 7:49 AM EST Gender Identity Not on file Sexual Orientation Not on file Obstetrics History Last Filed Vital Signs Vital Sign Reading Time Taken Comments Blood Pressure 136/83 11/20/2023 11:20 AM EDT Pulse 81 11/20/2023 11:20 AM EDT Temperature - - Respiratory Rate - - Oxygen Saturation - - Inhaled Oxygen Concentration - - Weight 96.8 kg (213 lb 8 oz) 11/20/2023 11:20 AM EDT Height 170.2 cm (5' 7 ) 11/20/2023 11:20 AM EDT Body Mass Index 33.44 11/20/2023 11:20 AM EDT Plan of Treatment Upcoming Encounters Date Type Department Care Team (Late st Contact Info) Description 11/19/2024 11:30 AM EDT Appointment Radiology Department [address] [id number] Health Maintenance Due Date Last Done Comments COVID-19 Vaccine (#1) 1967 Zoster Vaccines (1 of 2) 1981 Pneumococcal Vaccine: 50+ Years (2 of 2 - PCV) 04/23/2015 04/23/2014 Pneumococcal Vaccine: Pediatrics (0 to 5 Years) and At-Risk Patients (6 to 64 Years) (2 of 2 - PCV) 04/23/2015 04/23/2014 DTaP,Tdap,and Td Vaccines (2 - Td or Tdap) 09/22/2017 09/23/2007 RSV Immunization Patients 60+ Years Old (1 - Risk 60-74 years 1-dose series) 2022 Colorectal Cancer Screening: Colonoscopy 02/16/2022 Depression Screening 02/16/2022 HIV Screening 02/16/2022 Hepatitis C Screening 02/16/2022 Social Influencers of Health Screening 02/16/2022 Cervical Cancer Screening: Pap Smear 09/22/2023 09/21/2020, 07/02/2017 Influenza Vaccine (#1) 2023 Breast Cancer Screening 11/04/2025 11/05/19 24, 11/05/2023, 10/25/2022, Additional history exists HIB Vaccines Aged Out No longer eligi ble based on patient's age to complete this topic HPV Vaccines Aged Out No longer eligi ble based on patient's age to complete this topic Hepatitis A Vaccines Aged Out No long er eligible based on patient's age to complete this topic Hepatitis B Vaccines Aged Out No long er eligible based on patient's age to complete this topic IPV Vaccines Aged Out No longer eligi ble based on patient's age to complete this topic MMR Vaccines Aged Out No longer eligi ble based on patient's age to complete this topic Meningococcal ACWY Vaccine Aged Out N o longer eligible based on patient's age to complete this topic Meningococcal B Vacine Aged Out No lo nger eligible based on patient's age to complete this topic RSV Immunization Patients Under 20 months Aged Out No longer eligible based on patient's age to complete this topic Varicella Vaccines Aged Out No longer eligible based on patient's age to complete this topic Procedures Procedure Name Priority Date/Time Associated Diagnosis Comments SCREENING MAMMOGRAPHY BI 2-VIEW BREAST INC CAD Routine 11/05/2023 11:45 AM EDT Encounter for screening mammogram for malignant neoplasm of breast PAP SMEAR Routine 09/21/2020 from Last 3 Months or Most Recently Relevant to Health Maintenance Results * SCREENING MAMMOGRAPHY BI 2-VIEW BREAST INC CAD (11/05/2023 11:45 AM EDT) Anatomical Region Laterality Modality Radiographic Myla ging 10/25/2022 11:1 5 AM EDT Narrative 11/06/2023 1:48 PM EDT This is a summary report. The complete report is available in the patient's medical record. If you cannot access the medical record, please contact the sending organization for a detailed fax or copy. BILATERAL 3D DIGITAL SCREENING MAMMOGRAM History: Routine screening. ??No current breast complaints. ??Family history of breast cancer in aunt. ??Status post right lumpectomy Comparison: Multiple priors dating back to 07/27/2020 Technique: Bilateral full-field digital 3D mammography was performed using standard CC and MLO projections CAD was used to evaluate this mammogram. Findings: Density: ??There are scattered areas of fibroglandular density-B RIGHT: No suspicious masses, groups of microcalcification or areas of architectural distortion identified. Stable typically benign parenchymal asymmetries. ??Postprocedural changes within the lower inner breast. LEFT: No suspicious masses, groups of microcalcifications or areas of architectural distortion identified. Stable typically benign parenchymal asymmetries IMPRESSION: : 1. ??No mammographic evidence of malignancy. BI-RADS Category 2 benign findings Recommendation: Routine annual screening mammography is recommended Procedure Note Raj Ochoa MD - 12/26/2023 This is a summary report. The complete report is available in thepatient's medical record. If you cannot access the medical record, pleasecontact the sending organization for a detailed fax or copy. BILATERAL 3D DIGITAL SCREENING MAMMOGRAM History: Routine screening. No current breast complaints. Family historyof breast cancer in aunt. Status post right lumpectomy Comparison: Multiple priors dating back to 07/27/2020 Technique: Bilateral full-field digital 3D mammography was performed usingstandard CC and MLO projections CAD was used to evaluate this mammogram. Findings: Density: There are scattered areas of fibroglandular density-B RIGHT: No suspicious masses, groups of microcalcification or areas ofarchitectural distortion identified. Stable typically benign parenchymalasymmetries. Postprocedural changes within the lower inner breast. LEFT: No suspicious masses, groups of microcalcifications or areas ofarchitectural distortion identified. Stable typically benign parenchymalasymmetries IMPRESSION: : 1. No mammographic evidence of malignancy. BI-RADS Category 2 benign findings Recommendation: Routine annual screening mammography is recommended us Dorene Merritt MD IMG XR PROCEDURES Final Resu lt * Pap smear (09/21/2020) 09/21/2020 Narrative HISTORICAL TESTING LAB RESULTING AGENCY - 09/27/2020 3:16 PM EDT [id number] THINPREP PAP, IMAGED: NEGATIVE FOR SQUAMOUS INTRAEPITHELIAL LESION AND MALIGNANCY . MARLA CASON , AMAIRANI(ASCP) (CASE ELECTRONICALLY SIGNED 09 27 2020) RESULT OF APTIMA HIGH RISK HPV ASSAY: HIGH RISK HPV: ??NEGATIVE (SEROTYPES 16,18,31,33,35,39,45,51,52,56,58,59,66,68) COMPLETED ON 2020-09-23 ADEQUACY: SATISFACTORY ENDOCERVICAL/TRANSFORMATION ZONE COMPONENT ABSENT. SOURCE: THINPREP PAP HPV ANY DX: ??REFLEX 16 AND 18, CERVICAL, IMAGED CLINICAL INFORMATION: HPV ANY DIAGNOSIS. HORMONES, PAP HX NEG, Z12.4 us Radha Ramirez DO LAB CYTOLOGY ORDERABLES Final Result HISTORICAL TESTING LAB RESULTING AGENCY from Last 3 Months or Most Recently Relevant to Health Maintenance Care Teams Engineer Exhauster Relationship Specialty Start Date End Date Sincere Ray PA PCP - General Physician 2Nd Grade Teacher 11/17/20
--- OUTSIDE RECORDS SUMMARY | 2024-05-14 14:32 | XMS_ITS | Clinical Summary ---
Author Organization [facility] Address [address] [place], [place] [id number] Care Team Providers Care Mortgage Loan Officer Name Role Phone Sincere Ray Primary Care Provider Allergies Active Allergy Reactions Criticality Noted Date Comments Varenicline 11/07/2016 Metronidazole 11/06/2016 Latex 11/06/2016 Pregabalin 11/06/2016 Penicillins 11/06/2016 Sulfa Antibiotics 11/06/2016 Vancomycin 11/06/2016 Bupropion 11/07/2016 Medications Medication Sig Dispensed Refills Start Date End Date Status ALBUTEROL IN Inhale 2 puffs into the lungs daily. 0 Active Budesonide-Formoterol Fumarate (SYMBICORT IN) Inhale 2 puffs into the lungs daily. 0 Active CALCIUM PO Take 1,500 mg by mouth daily. 0 Active cholecalciferol (VITAMIN D3) 1000 UNITS tablet Take 2 tablets (2,000 Units total) by mouth daily. 0 Active pantoprazole (PROTONIX) 40 MG tablet Take 1 tablet (40 mg total) by mouth every morning on an empty stomach. 0 Active oxybutynin (DITROPAN) 5 MG tablet Take 1 tablet (5 mg total) by mouth 3 (three) times a day. 0 Active Multiple Vitamin (MULTI-VITAMIN PO) Take by mouth. 0 Ac tive calcium carbonate (TUMS) 500 MG chewable tablet Chew 1 tablet (500 mg total) by mouth daily. 0 Active Active Problems No known active problems Family History Medical History Relation Name Comments Cancer Paternal Grandmother breast Relation Name Status Comments Paternal Grandmother Social History Tobacco Use Types Packs/Day Years Used Date Smoking Tobacco: Former Cigarettes Q uit: 05/24/2022 Smokeless Tobacco: Never Tobacco Cessation:Counseling Given: Not Answered Alcohol Use Standard Drinks/Week Comments Yes 0 (1 standard drink = 0.6 oz pur e alcohol) Sex and Gender Information Value Date Recorded Sex Assigned at Not on file Gender Identity Not on file Sexual Orientation Not on file Job Start Date Occupation Industry Not on file Not on file Not on file Last Filed Vital Signs Vital Sign Reading Time Taken Comments Blood Pressure 132/63 12/15/2022 9:12 AM EDT Pulse 73 12/15/2022 9:12 AM EDT Temperature 36.4 ??C (97.5 ??F) 12/15/2022 9:12 AM ED T Respiratory Rate - - Oxygen Saturation 96% 12/15/2022 9:12 AM EDT Inhaled Oxygen Concentration - - Weight 105.7 kg (233 lb) 12/15/2022 9:12 AM EDT Height 170.2 cm (5' 7 ) 05/05/2019 11:54 AM EST Body Mass Index 36.49 05/05/2019 11:54 AM EST Plan of Treatment Health Maintenance Due Date Last Done Comments Hepatitis C Screening 1962 COVID-19 Vaccine (#1) 1962 Depression Screening 1974 Preventative Health Evaluation 02/16/1980 Tobacco Cessation Counseling 02/16/1980 DTap / Tdap / Td (1 - Tdap) 1981 Cervical Cancer Screening (P ap Smear) 1983 Colon Cancer Screening (Colonoscopy) 2007 Breast Cancer Screening (Mammogram) 02/16/2012 Shingrix-Zoster Vaccine (1 of 2) 02/16/2012 Pneumococcal Vaccine (2 of 2 - PCV) 04/23/2015 04/23/2014 Influenza Vaccine (#1) 2023 RSV Adult > 60+ Yrs or Pregn ant (1 - 1-dose 75+ series) 2037 Hepatitis B Vaccines Aged Out No long er eligible based on patient's age to complete this topic RSV Ped < 20 months Aged Out No longe r eligible based on patient's age to complete this topic Care Teams Mortgage Loan Officer Relationship Specialty Start Date End Date Sincere Ray PA [address] [place] [id number] PCP - General Physician Video Poker [place] 11/17/20
== END 2024-05-14 12:08 | disposition home or self-care (01) ==
LOC: HO.HMGCLDS 12:07
PROVIDERS: PCP Physician Assistant; Visit Provider Physician Assistant
DX: E78.2 Mixed hyperlipidemia (principal); D50.9 Iron deficiency anemia, unspecified; R20.2 Paresthesia of skin
CPT/HCPCS: 36415; 80053; 80061; 83540; 85027

== ENCOUNTER 2024-05-15 14:15 | Outpatient (AMB) | payer MEDICARE, MEDICAID, SELFPAY ==
[2024-05-15 14:16] VITALS: BP 122/80; PULSE 102; O2SAT 98; BMI 32.1
--- NOTE | 2024-05-15 14:16 | A.OFFPC_ITS ---
Vital Signs 05/15/24 14:16 Height 5 ft 7 in Weight 205 lb BMI 32.1 BP 122/80 Blood Pressure Location Lt brachial Position Sitting Pulse 102 H Pulse Source Pulse Oximeter Pulse Oximetry (%) 98 Oxygen Delivery Method Room Air Intake Visit Reasons: Follow-up Intake Note: Patient c/o cervical pain, shoulder pain and right arm pain with finger locking. Medical Insurance Coding Specialist Required: No Accompanied by: Self / Same As Patient Allergies barium sulfate Allergy (Unknown, Verified 05/15/24 14:28) Unknown penicillin V Allergy (Unknown, Verified 05/15/24 14:28) Unknown pregabalin Allergy (Unknown, Verified 05/15/24 14:28) Unknown Sulfa (Sulfonamide Antibiotics) Allergy (Unknown, Verified 05/15/24 14:28) Unknown vancomycin Allergy (Unknown, Verified 05/15/24 14:28) Unknown varenicline Allergy (Unknown, Verified 05/15/24 14:28) Unknown Medication List - Last Reconciled 05/15/24 by Sincere Ray PA-C albuterol sulfate 90 mcg/actuation 1 puff PO QID atorvastatin 20 mg PO DAILY 90 days oxybutynin chloride ER 10 mg PO DAILY 90 days oxycodone-acetaminophen 7.5-325 mg 1 tab PO BID PRN 7 days phentermine 37.5 mg PO DAILY 90 days sertraline 50 mg PO DAILY 90 days Symbicort 80-4.5 mcg/actuation (budesonide-formoterol) 2 puffs inhalation BID 30 days NS tizanidine 2 mg PO BEDTIME PRN 14 days Tobacco use date assessed: 05/15/24 Dental Screening Dental Screen Date: 05/15/24 Did you have a dental visit in the last 12 months?: Yes Did you have a dental problem in the last 6 months where you did not have access to dental care?: No Was dental information given to patient?: Patient has dentist HPI Follow-up HPI Details Patient is a 64 year-old female here today for a f/u visit ?Patient has a past history significant for lumbar radiculopathy, fibromyalgia, hyperlipidemia, former smoker, history of breast cancer, pulmonary nodule, chronic plantar facs Concerns--> reports having neck pain that radiates down her right upper extremity into her hand. She reports her neck pain does wake her up a few times at night. She denies any recent injury to her head or neck or right shoulder. . She also reports having worsening kodak rseness of voice, she does report some throat congestion and difficulty swallowing at times. She is concerned as she was a previous smoker. She did have a vocal cord surgery to removal polyp many years ago. She is interested in further evaluation and ENT. Inguinal hernia--now followed by general surgeon at [facility] and will be due for inguinal hernia repair. She is told to lose 40-50 lb before the surgery. We have started phentermine 37 mg which has helped her significantly in her weight loss journey. Regarding weight management, insulin resistance, and preparation for hernia surgery. She describes a history of gradual weight loss of 10 pounds over several months on phentermine. The challenges of weight management include compounded difficulty due to limited physical activity from chronic back and lumbar spine issues and a sluggish liver due to fatty liver disease .. Endometrial calcifications- has underwent endometrial biopsies without any notable malignancies CHRONIC MEDICAL CONDITIONS--> .. Lumbar radiculopathy: She reports she has been discontinued from pain management clinic. She reports having a clean urine . 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 She has been using oxycodone on a limited basis for her pain. She does report having side effects to Cymbalta, gabapentin, Lyrica. She is now interested in starting physical therapy [facility] Medical History SAURAV (obstructive sleep apnea) Anxiety and depression Spondylosis, lumbar, with myelopathy Disc degeneration, lumbar Chronic pain syndrome Fibromyalgia Plantar fasciitis Sacroiliitis Plantar fasciitis, bilateral Paresthesias Lumbar radiculopathy Cyst of uterus Breast cancer Neuropathy Pulmonary nodule Surgical History History of bilateral breast reduction surgery History of vocal cord polypectomy History of 2 sections Family History Father Alive and well Mother No problems noted. Social History Household Members Other:: with daughter Housing: House Alcohol intake: never Patient Tobacco Use Status: Former Tobacco user Cigarettes Per Day: 10 e-Cigarette/Vaping Use: Never Used Second Hand Smoke Exposure: Yes service: No Current occupational status: disabled Current occupational exposures/hazards: No Cognitive needs: No Hearing needs: No Vision needs: Yes (Glasses) Questionnaire PHQ-9 Over the last 2 weeks, how often have you been bothered by any of the following problems? 1. Little interest or pleasure in doing things: several days 2. Feeling down, depressed, or hopeless: more than half the days 3. Trouble falling or staying asleep, or sleeping too much: nearly every day 4. Feeling tired or having little energy: several days 5. Poor appetite or overeating: not at all 6. Feeling bad about yourself - or that you are a failure or have let yourself or your family down: not at all 7. Trouble concentrating on things, such as reading the newspaper or watching television: not at all 8. Moving or speaking so slowly that other people could have noticed. Or the opposite - being so fidgety or restless that you have been moving around a lot more than usual: not at all 9. Thoughts that you would be better off or of hurting yourself in some way: not at all Total score: 7 Depression Screening Interpretation: Positive Depression Screening Follow-up: Existing condition Depression Screening Done: Yes 07199 - PHQ-9 Billing: Yes Source: Developed by Drs. Jasbir Andersen, Purvi Dumont, Grzegorz Wu and colleagues, with an educational brian from [employer]. Thrive Questionnaire Date Thrive assessed: 05/15/24 I am a: Patient What is your living situation today?: I have a steady place to live Within the past 12 months, did the food you bought not last and you didn't have the money to get more?: Never true Within the past 12 months, did you worry whether your food would run out before you got money to buy more?: Never true Do you have trouble paying for medicines?: No Do you have trouble getting transportation to medical appointments?: No Do you have trouble paying your heating and electricity bill?: No Do you have trouble taking care of your child, family member or friend?: No Do you have trouble with day-to-day activities such as bathing, preparing meals, shopping, managing finances, etc.?: No Are you currently unemployed and looking for a job?: No Are you interested in more education?: No Please select the resources that you would like help with: None Currently or been in a relationship where the following occur: No concerns reported THRIVE Score: 0 AUDIT C Alcohol Use Questionnaire (AUDIT-C) 1. How often do you have a drink containing alcohol?: Never Total Score: 0 IVAN-7 AMB Questionnaire IVAN-7 Date IVAN - 7 assessed: 05/15/24 Feeling nervous, anxious, or on edge: 0 = Not at all Not being able to stop or control worryin = Not at all Worrying too much about different things: 0 = Not at all Trouble relaxin = Not at all Being so restless that it is hard to sit still: 0 = Not at all Becoming easily annoyed or irritable: 0 = Not at all Feeling afraid as if something awful might happen: 0 = Not at all Total IVAN-7 score (0-4 normal; 5-9 mild; 10-14 moderate; 15-21 severe): 0 Source: Developed by Drs. Jasbir Andersen, Purvi Dumont, Grzegorz Wu and colleagues, with an educational brian from [employer]. IVAN-7 Assessment Billing IVAN-7 Assessment Tool: IVAN-7 Assessment 93770 Review of Systems Const Denies headache(s) Eyes Denies loss of vision ENT Denies vertigo, Denies dizziness, Denies headache(s) and Denies sore throat Card Denies chest pain, Denies leg edema and Denies lightheadedness Resp Denies cough, Denies hemoptysis and Denies wheezing GI Denies abdominal pain, Denies melena, Denies constipation, Denies diarrhea and Denies vomiting Denies urinary frequency, Denies dysuria and Denies urinary urgency Musc Denies arthralgias, Denies joint swelling, Denies numbness and Denies tingling Neuro Denies Abnormal speech present, Denies behavioral changes, Denies vertigo, Denies dizziness, Denies headache(s), Denies loss of vision, Denies memory loss, Denies numbness and Denies tingling Psych Denies anxiety, Denies behavioral changes, Denies depression, Denies memory loss and Denies panic attacks Mauricio/Lymph Denies easy bleeding and Denies easy bruising Aller/Immun Denies wheezing Physical exam (Primary Care) Vital Signs: Last Vital Signs Pulse 102 H 05/15/24 14:16 BP 122/80 05/15/24 14:16 Pulse Ox 98 05/15/24 14:16 Oxygen Delivery Method Room Air 05/15/24 14:16 BMI result Body Mass Index 32.1 Tobacco/Smoking Status: Tobacco use Status Tobacco use date assessed 05/15/24 05/15/24 14:24 Patient Tobacco Use Status Former Tobacco user 05/15/24 14:24 e-Cigarette/Vaping Use Never Used 05/15/24 14:24 PHQ-9: PHQ-9 Score PHQ-9: Total score 7 05/15/24 14:32 Depression Screening Interpretation: Positive Depression Screening Follow-up: Existing condition Thrive Assessment: Date of Thrive Assessment Date Thrive assessed 05/15/24 05/15/24 14:27 Currently or been in a relationship where the following occur: No concerns reported Const General: healthy appearing, no acute distress, alert and awake Nutritional Appearance: well nourished Orientation/consciousness: oriented to person, oriented to place and oriented to time HENMT Ears: TM's normal bilaterally General nose exam: Normal nasal mucous membranes and turbinates present Eyes Conjunctivae: conjunctivae normal Sclerae: sclerae normal Pupils: Equal, round and reactive pupils present Neck Neck: Yes no lymphadenopathy and Yes no JVD Thyroid: Thyroid normal Carotids: no bruits Resp Effort & Inspection: normal respiratory effort and not tachypneic Auscultation: no crackles, no rales, no rhonchi and no wheezes Cardio Rate: regular rate Rhythm: regular rhythm Heart sounds: no murmurs and normal S1 and S2 GI Palpation (GI): Soft to palpation, nontender, no hepatomegaly and no splenomegaly Auscultation: normal bowel sounds Skin General skin exam: no rashes or lesions noted and dry skin Neuro General: oriented to person, oriented to place and oriented to time Cranial nerves: Yes Equal, round and reactive pupils present Speech: No Abnormal speech present Gait exam (Neuro): Normal gait present Motor exam (neuro): no tremor noted Extrem Right upper extremity: full ROM Left upper extremity: full ROM Right lower extremity: full ROM; no edema Left lower extremity: full ROM; no edema Psych Mental Status: mental status grossly normal Speech and movement: Normal speech and movement present Affect: normal affect Attitude: cooperative Thought process: Normal thought process present Coding Level of Care Code Est Pt Level 4 (85256) Diagnoses Cervical radiculitis M54.12 Non-recurrent bilateral inguinal hernia with obstruction without gangrene K40.00 Obstruction and gangrene presence: with obstruction but without gangrene Recurrence: non-recurrent Class 1 obesity E66.811 Skin lesion of back L98.9 Pharyngoesophageal dysphagia R13.14 Dysphagia type: pharyngoesophageal phase Additional Codes PHQ-9 - 29653 - PHQ-9 Billing: Yes ([id number]) IVAN-7 Assessment Billing - IVAN-7 Assessment Tool: IVAN-7 Assessment 70099 ([id number]) Assessment & Plan Assessment & Plan (1) Cervical radiculitis: Code(s): M54.12 - Radiculopathy, cervical region Category: Medical Plan: Patient does report having neck pain and tightness with radicular symptoms down right upper extremity. She reports paresthesias in her lateral arm and into her hands. She does report finger catching more consistent with a trigger finger. She does have history of lumbar disc disease. Will try to get MRI of cervical spine to evaluate for disc herniation due to her radicular symptoms down her right upper extremity. (2) Bilateral inguinal hernia: Code(s): K40.20 - Bilateral inguinal hernia, without obstruction or gangrene, not specified as recurrent Category: Medical Qualifiers: Obstruction and gangrene presence: with obstruction but without gangrene Recurrence: non-recurrent Qualified Code(s): K40.00 - Bilateral inguinal hernia, with obstruction, without gangrene, not specified as recurrent Plan: She does have bilateral inguinal hernias that needs surgical repair. She is trying to lose weight to help make surgery more successful without complication. She has been able to lose weight using phentermine and will be calling her general surgeon at [facility] to reschedule evaluation and surgery. (3) Class 1 obesity: Code(s): E66.811 - Obesity, class 1 Category: Medical Plan: Patient does understand her BMI remains above 30. She has been on phentermine and has lost weight. As she does have a history impaired glucose metabolism there is some concern here for insulin resistance. She is willing to try metformin to help continue to lose weight (4) Skin lesion of back: Code(s): L98.9 - Disorder of the skin and subcutaneous tissue, unspecified Category: Medical Plan: Please see picture section (5) Dysphagia: Code(s): R13.10 - Dysphagia, unspecified Category: Medical Qualifiers: Dysphagia type: pharyngoesophageal phase Qualified Code(s): R13.14 - Dysphagia, pharyngoesophageal phase Plan: Patient reporting dysphagia in the setting of worse since the voice. She did have a previous surgery on her larynx to remove a voice box polyp. She is a previous smoker and is concerned about another lesion. Orders: Orders MR cervical spine wo con 05/15/24 M54.12 - Radiculopathy, cervical region XR cervical spine 4V 05/15/24 M54.12 - Radiculopathy, cervical region FL barium swallow 05/15/24 R13.14 - Dysphagia, pharyngoesophageal phase Referrals Dermatology Referral L98.9 - Disorder of the skin and subcutaneous tissue, unspecified Ear/Nose/Throat Referral R49.0 - Dysphonia Medications: New metformin 500 mg PO DAILY 30 tabs 2RF 30 days R73.09 - Other abnormal glucose ciprofloxacin-dexamethasone 0.3-0.1 % 4 drps otic (ears) BID 7.5 mL 0RF 7 days H60.90 - Unspecified otitis externa, unspecified ear Changed From tizanidine 2 mg PO BEDTIME 14 days PRN 14 tabs 1RF muscle spasticity M54.12 - Radiculopathy, cervical region To tizanidine 2 mg PO BEDTIME 30 tabs 1RF muscle spasticity 30 days M54.12 - Radiculopathy, cervical region Refilled Symbicort 80-4.5 mcg/actuation (budesonide-formoterol) 2 puffs inhalation BID 10.2 grams 4RF 30 days NS J45.20 - Mild intermittent asthma, uncomplicated
--- OUTSIDE RECORDS SUMMARY | 2024-05-15 17:28 | XMS_ITS | Clinical Summary ---
Author Organization [facility] Address [address] [place], [place] [id number] Care Team Providers Care Carry All Driver Name Role Phone Sincere Ray Primary Care [...] age to complete this topic Care Teams Carry All Driver Relationship Specialty Start Date End Date Sincere Ray PA [address] [place] [id number] PCP - General Physician Clinic Scheduler 11/17/20
--- OUTSIDE RECORDS SUMMARY | 2024-05-15 17:28 | XMS_ITS | Clinical Summary ---
Author Organization [facility] it Address [address] [place] [address] Care Team Providers Care Digester Capper Name Role Phone Sincere Ray Primary Care Provider Medications dicyclomine (BENTYL) 10 mg capsuleIndicatio ns:Irritable bowel syndrome, unspecified type TAKE 1 CAPSULE BY MOUTH THREE TIMES A DAY ONE HOUR BEFORE MEALS 270 capsule 04/30/2024 Active Surgical History Surgery Date Site/Laterality Comments TUBAL LIGATION PROCEDURE: HISTORICAL TUBAL LIGATION BREAST SURGERY 2005 PROCEDURE: [place] UNLISTED PROCEDURE BREAST; COMMENT: breast reduction SECTION PROCEDURE: HISTORICAL DELIVERY; COMMENT: x2 BREAST LUMPECTOMY 2016 Right PROCEDURE: HISTORICAL BREAST LUMPECTOMY; COMMENT: DCIS [facility] OTHER SURGICAL HISTORY PROCEDURE: HISTORY OTHER; COMMENT: cervical cryosurgery OTHER SURGICAL HISTORY 06/2011 PROCEDURE: HISTORY OTHER; COMMENT: inner and outer uterine cysts removed OTHER SURGICAL HISTORY 2016 PROCEDURE: [place] UNLISTED PROCEDURE LARYNX; COMMENT: vocal cord removal, Dr Cedillo COLONOSCOPY 2017 PROCEDURE: HISTORICAL COLONOSCOPY; COMMENT: rpt 10yrs Medical History Medical History Date Comments Anxiety 05/24/2017 DX:Anxiety Asthma 12/04/2016 DX:Asthma Breast cancer ([facility]/HCC) 10/11/2015 DX:Breas t cancer ([facility]); COMMENT: 08/2015 DCIS lumpectomy, radiation,Tamoxifen, lower-inner quadrant [...] 11/19/2024 11:30 AM EDT Appointment Radiology Department [address] [phone] Health Maintenance Due Date Last Done Comments [...] RESULTING AGENCY - 09/27/2020 3:16 PM EDT [id number] THINPREP PAP, IMAGED: NEGATIVE FOR SQUAMOUS INTRAEPITHELIAL [...] Recently Relevant to Health Maintenance Care Teams Digester Capper Relationship Specialty Start Date End Date Sincere Ray PA PCP - General Physician Cloth Tearer 11/17/20
== END 2024-05-15 15:14 | disposition home or self-care (01) ==
LOC: HO.HMCH 14:15
PROVIDERS: PCP Physician Assistant; Visit Provider Physician Assistant
DX: M54.12 Radiculopathy, cervical region (principal); K40.00 Bilateral inguinal hernia, with obstruction, without gangrene, not specified as recurrent; E66.811 Obesity, class 1; Z68.32 Body mass index [BMI] 32.0-32.9, adult; L98.9 Disorder of the skin and subcutaneous tissue, unspecified; R13.14 Dysphagia, pharyngoesophageal phase

== ENCOUNTER → 2024-05-15 14:15 | Outpatient (BNVA) | payer MEDICARE, MEDICAID, SELFPAY | PROVIDERS: PCP Physician Assistant; Visit Provider Physician Assistant | DX: M54.12 Radiculopathy, cervical region (principal); K40.00 Bilateral inguinal hernia, with obstruction, without gangrene, not specified as recurrent; E66.811 Obesity, class 1; Z68.32 Body mass index [BMI] 32.0-32.9, adult; L98.9 Disorder of the skin and subcutaneous tissue, unspecified; R13.14 Dysphagia, pharyngoesophageal phase; Z71.3 Dietary counseling and surveillance | CPT/HCPCS: 96127; 99212 ==

== ENCOUNTER → 2024-05-25 10:26 | Outpatient (BNV) | payer MEDICARE, MEDICAID, SELFPAY | PROVIDERS: PCP Physician Assistant; Visit Provider Radiology Diagnostic Radiology | DX: M47.812 Spondylosis without myelopathy or radiculopathy, cervical region (principal); M48.02 Spinal stenosis, cervical region | CPT/HCPCS: 72141 ==

== ENCOUNTER 2024-05-25 10:29 | Outpatient (REF) | payer MEDICARE, MEDICAID, SELFPAY ==
--- NOTE | ~2024-05-25 | MR_ITS ---
EXAMINATION: MR CERVICAL SPINE WITHOUT CONTRAST CLINICAL INFORMATION: Radiculopathy, cervical region. COMPARISON: None available. TECHNIQUE: MRI of the cervical spine was obtained using routine sequences without contrast. FINDINGS: Craniocervical junction is intact. No bone marrow STIR signal abnormality. Multilevel disc desiccation and marginal osteophyte formation C3 C7. Grade 1 retrolisthesis, C4-5. Grade 1 anterolisthesis, C7-T1. Cervical spinal cord signal is normal. C2-3: Right-sided disc osteophyte complex formation. No cord compression. Right neuroforamina narrowing. Right facet joint hypertrophy. C3-4: Broad-based disc osteophyte complex formation abutting the cord. Facet joint hypertrophy. Bilateral neuroforamina stenosis. C4-5: Broad-based disc osteophyte complex formation. Facet joint hypertrophy. CSF effacement of the thecal sac and flattening of the spinal cord. Bilateral neuroforamina stenosis. C5-6: Broad-based disc osteophyte complex formation resulting in flattening of the spinal cord. CSF effacement of the thecal sac. Facet joint hypertrophy. Bilateral neuroforamina stenosis. C6-7: Broad-based disc osteophyte complex formation resulting in ventral deformity of the spinal cord. No neuroforamina stenosis. C7-T1: Broad-based disc osteophyte complex formation. No cord compression. No neuroforamina stenosis. No prevertebral compartment hematoma, mass or fluid collections. Flow-void signal within the main vessels is normal. Codominant vertebral arteries. MR/MR cervical spine wo con IMPRESSION: Multilevel cervical spondylosis C3 C7 resulting in central spinal canal stenosis at C4-5, C5-6 and to a lesser extent C3-4 and C6-7 levels. No cord edema and or myelopathy. Bilateral neuroforamina stenosis more conspicuous at C4-5 and C5-6. Electronically signed by: Pavan Pena MD 05/26/2024 03:29 PM EDT
--- OUTSIDE RECORDS SUMMARY | 2024-05-25 10:38 | XMS_ITS | Clinical Summary ---
Author Organization [facility] it Address [address] [place] [address] Care Team Providers Care Freight Weigher Name Role Phone Sincere Ray Primary Care [...] Right PROCEDURE: HISTORICAL BREAST LUMPECTOMY; COMMENT: DCIS [facility] OTHER SURGICAL HISTORY PROCEDURE: HISTORY OTHER; COMMENT: cervical cryosurgery OTHER SURGICAL HISTORY 06/2011 PROCEDURE: HISTORY OTHER; COMMENT: inner and outer uterine cysts removed OTHER SURGICAL HISTORY 2016 PROCEDURE: [place] UNLISTED PROCEDURE LARYNX; COMMENT: vocal cord removal, Dr Cedillo COLONOSCOPY 2017 PROCEDURE: HISTORICAL COLONOSCOPY; COMMENT: rpt 10yrs Medical History Medical History Date Comments Anxiety 05/24/2017 DX:Anxiety Asthma 12/04/2016 DX:Asthma Breast cancer ([facility]/HCC) 10/11/2015 DX:Breas t cancer ([facility] COMMENT: 08/2015 DCIS lumpectomy, radiation,Tamoxifen, lower-inner quadrant [...] 11/19/2024 11:30 AM EDT Appointment Radiology Department [address] [phone] Health Maintenance Due Date Last Done Comments [...] RESULTING AGENCY - 09/27/2020 3:16 PM EDT [id number] THINPREP PAP, IMAGED: NEGATIVE FOR SQUAMOUS INTRAEPITHELIAL [...] Recently Relevant to Health Maintenance Care Teams Freight Weigher Relationship Specialty Start Date End Date Sincere Ray PA PCP - General Physician Ssrs Developer 11/17/20
== END 2024-05-25 10:30 | disposition home or self-care (01) ==
LOC: HO.MRI 10:29
PROVIDERS: PCP Physician Assistant; Visit Provider Physician Assistant
DX: M54.12 Radiculopathy, cervical region (principal)
CPT/HCPCS: 72141

== ENCOUNTER 2024-06-12 13:32 | Outpatient (REF) | payer MEDICARE, MEDICAID, SELFPAY ==
--- NOTE | ~2024-06-12 | XR_ITS ---
CLINICAL HISTORY: M50.90 - Cervical disc disorder, unspecified, unspecified cervical region 4 views cervical spine Comparison: None Findings: Normal alignment. Alignment is maintained with flexion and extension positioning. No acute fractures or dislocation. No significant degenerative change. Prevertebral soft tissues within normal limits. IMPRESSION: No acute findings. This document has been electronically signed by: Richard Arriola MD on 06/14/2024 07:44:20
--- OUTSIDE RECORDS SUMMARY | 2024-06-12 15:55 | XMS_ITS | Clinical Summary ---
Author Organization [facility] Address [address] [place], [place] [id number] Care Team Providers Care Cocoa Press Operator Name Role Phone Sincere Ray Primary Care Provider [phone] Allergies Active Allergy Reactions Criticality Noted Date [...] age to complete this topic Care Teams Cocoa Press Operator Relationship Specialty Start Date End Date Sincere Ray PA [address] [place] [phone] PCP - General Physician Delivery Truck Driver Heavy 11/17/20
--- OUTSIDE RECORDS SUMMARY | 2024-06-12 15:56 | XMS_ITS | Clinical Summary ---
Author Organization [facility] it Address [address] [place] [address] Care Team Providers Care Sheet Metal Operator Name Role Phone Sincere Ray Primary Care Provider [phone] Medications dicyclomine (BENTYL) 10 mg capsuleIndicatio ns:Irritable bowel syndrome, unspecified type TAKE 1 CAPSULE BY MOUTH THREE TIMES A DAY ONE HOUR BEFORE MEALS 270 capsule 04/30/2024 Active Surgical History Surgery Date Site/Laterality Comments TUBAL LIGATION PROCEDURE: HISTORICAL TUBAL LIGATION BREAST SURGERY 2005 PROCEDURE: [place] UNLISTED PROCEDURE BREAST; COMMENT: breast reduction SECTION PROCEDURE: HISTORICAL DELIVERY; COMMENT: x2 BREAST LUMPECTOMY 2015 Right PROCEDURE: HISTORICAL BREAST LUMPECTOMY; COMMENT: DCIS [facility] OTHER SURGICAL HISTORY PROCEDURE: HISTORY OTHER; COMMENT: cervical cryosurgery OTHER SURGICAL HISTORY 06/2011 PROCEDURE: HISTORY OTHER; COMMENT: inner and outer uterine cysts removed OTHER SURGICAL HISTORY 2016 PROCEDURE: [place] UNLISTED PROCEDURE LARYNX; COMMENT: vocal cord removal, [...] 11/19/2024 11:30 AM EDT Appointment Radiology Department [address] [phone] Health Maintenance Due Date Last Done Comments [...] RESULTING AGENCY - 09/27/2020 3:16 PM EDT [id number] THINPREP PAP, IMAGED: NEGATIVE FOR SQUAMOUS INTRAEPITHELIAL [...] Recently Relevant to Health Maintenance Care Teams Sheet Metal Operator Relationship Specialty Start Date End Date Sincere Ray PA PCP - General Physician Tube Making Machine Operator 11/17/20
== END 2024-06-12 13:33 | disposition home or self-care (01) ==
LOC: HO.HOSX 13:32
PROVIDERS: PCP Physician Assistant; Referring Provider Physician Assistant; Visit Provider Physician Assistant
DX: M50.90 Cervical disc disorder, unspecified, unspecified cervical region (principal)
CPT/HCPCS: 72050; 99202

== ENCOUNTER 2024-06-12 13:32 | Outpatient (AMB) | payer MEDICARE, MEDICAID, SELFPAY ==
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
[2024-06-12 13:41] VITALS: BMI 32.6
--- OUTSIDE RECORDS SUMMARY | 2024-06-12 14:51 | XMS_ITS | Clinical Summary ---
Author Organization [facility] it Address [address] [place] [address] Care Team Providers Care Abnormal Psychology Teacher Name Role Phone Sincere Ray Primary Care [...] PROCEDURE: HISTORICAL DELIVERY; COMMENT: x2 BREAST LUMPECTOMY 2015 Right PROCEDURE: HISTORICAL BREAST LUMPECTOMY; COMMENT: DCIS [facility] OTHER SURGICAL HISTORY PROCEDURE: HISTORY OTHER; COMMENT: cervical cryosurgery OTHER SURGICAL HISTORY 06/2011 PROCEDURE: HISTORY OTHER; COMMENT: inner and outer uterine cysts removed OTHER SURGICAL HISTORY 2016 PROCEDURE: [place] UNLISTED PROCEDURE LARYNX; COMMENT: vocal cord removal, Dr Cedillo COLONOSCOPY 2017 PROCEDURE: HISTORICAL COLONOSCOPY; COMMENT: rpt 10yrs Medical History Medical History Date Comments Anxiety 05/24/2017 DX:Anxiety Asthma 12/04/2016 DX:Asthma Breast cancer 10/11/2015 DX:Breast cancer (HCC); COMMENT: 08/2015 DCIS lumpectomy, radiation,Tamoxifen, lower-inner quadrant [...] 11/19/2024 11:30 AM EDT Appointment Radiology Department [address] [id number] Health Maintenance Due Date Last Done Comments COVID-19 Vaccine (#1) 1967 Zoster Vaccines (1 of 2) 1981 Pneumococcal Vaccine: 50+ Years (2 of 2 - PCV) 04/23/2015 04/23/2014 Pneumococcal Vaccine: Pediatrics (0 to 5 Years) and At-Risk Patients (6 to 64 Years) (2 of 2 - PCV) 04/23/2015 04/23/2014 DTaP,Tdap,and Td Vaccines (2 - Td or Tdap) 09/22/2017 09/23/2007 RSV Immunization Adult Patients (1 - Risk 60-74 years 1-dose series) 2022 Colorectal Cancer Screening: Colonoscopy 02/16/2022 Depression Screening 02/16/2022 HIV Screening 02/16/2022 Hepatitis C Screening 02/16/2022 Social Influencers of Health Screening 02/16/2022 Cervical Cancer Screening: Pap Smear 09/22/2023 09/21/2020, 07/02/2017 Influenza Vaccine (#1) 2023 Breast Cancer Screening 11/04/2025 11/05/19, 11/05/2023, 10/25/2022, Additional history exists HIB Vaccines [...] RESULTING AGENCY - 09/27/2020 3:16 PM EDT [id number] THINPREP PAP, IMAGED: NEGATIVE FOR SQUAMOUS INTRAEPITHELIAL [...] Recently Relevant to Health Maintenance Care Teams Abnormal Psychology Teacher Relationship Specialty Start Date End Date Sincere Ray PA PCP - General Physician Nickel Operator 11/17/20
--- OUTSIDE RECORDS SUMMARY | 2024-06-12 14:51 | XMS_ITS | Clinical Summary ---
Author Organization [facility] Address [address] [place], [place] [id number] Care Team Providers Care Chummer Name Role Phone Sincere Ray Primary Care [...] age to complete this topic Care Teams Chummer Relationship Specialty Start Date End Date Sincere Ray PA [address] [place] [phone] PCP - General Physician Field Agent 11/17/20
== END 2024-06-12 14:31 | disposition home or self-care (01) ==
LOC: HO.HNS 13:33
PROVIDERS: PCP Physician Assistant; Referring Provider Physician Assistant; Visit Provider Physician Assistant
DX: M50.90 Cervical disc disorder, unspecified, unspecified cervical region (principal)
CPT/HCPCS: 99204

== ENCOUNTER → 2024-06-12 14:32 | Outpatient (BNV) | payer MEDICARE, MEDICAID, SELFPAY | PROVIDERS: PCP Physician Assistant; Referring Provider Physician Assistant; Visit Provider Specialist | DX: M50.90 Cervical disc disorder, unspecified, unspecified cervical region (principal) | CPT/HCPCS: 72050 ==

== ENCOUNTER 2024-09-03 11:14 | Outpatient (AMB) | payer MEDICARE, MEDICAID, SELFPAY ==
[2024-09-03 11:18] VITALS: BP 102/76; PULSE 78; TEMP 36.2; O2SAT 97; BMI 33.4
--- NOTE | 2024-09-03 11:18 | MHC.PC.OV ---
Vital Signs 09/03/24 11:18 Height 5 ft 6 in Weight 207 lb 4 oz BMI 33.4 BP 102/76 Blood Pressure Location Lt brachial Position Sitting Pulse 78 Pulse Source Pulse Oximeter Temp 97.1 F Temp Source Temporal Artery Scan Pulse Oximetry (%) 97 Oxygen Delivery Method Room Air Intake Visit Reasons: follow up Operations Research Engineer Required: No Accompanied by: Self / Same As Patient Allergies penicillin V Allergy (Severe, Verified 09/03/24 11:27) Swelling barium sulfate Allergy (Unknown, Verified 09/03/24 11:27) Unknown pregabalin Allergy (Unknown, Verified 09/03/24 11:27) Unknown Sulfa (Sulfonamide Antibiotics) Allergy (Unknown, Verified 09/03/24 11:27) Unknown vancomycin Allergy (Unknown, Verified 09/03/24 11:27) Unknown varenicline Allergy (Unknown, Verified 09/03/24 11:27) Unknown Medication List - Last Reconciled 09/03/24 by Sincere Ray PA-C albuterol sulfate 90 mcg/actuation 1 puff PO QID atorvastatin 20 mg PO DAILY 90 days metformin 500 mg PO DAILY oxybutynin chloride ER 10 mg PO DAILY 90 days oxycodone 10 mg PO BID PRN 5 days phentermine 37.5 mg PO DAILY 90 days sertraline 50 mg PO DAILY 90 days Symbicort 80-4.5 mcg/actuation (budesonide-formoterol) 2 puffs inhalation BID 30 days NS tizanidine 2 mg PO BEDTIME 30 days Tobacco use date assessed: 05/15/24 Dental Screening Dental Screen Date: 05/15/24 HPI follow up HPI Details Patient is a 64 year-old female here today for a f/u visit ?Patient has a past history significant for lumbar radiculopathy, fibromyalgia, hyperlipidemia, former smoker, history of breast cancer, pulmonary nodule, Cervical spine disc disease: Has followed up with neurosurgeon recommend conservative treatment for now.. Has upcoming appointment with physical therapy for her 1st for evaluation. Cervical spine Imaging has revealed multilevel spondylosis and spinal canal stenosis from C3 to C7, with bilateral neuroforaminal stenosis most pronounced at C4-C5 and C5-C6. The pain significantly impacts her daily activities, including driving and sleeping. She has a history of vocal cord surgery, which complicates potential surgical interventions for her neck due to the risk of permanent voice loss. The patient is exploring physical therapy as a conservative treatment option. . She also reports having worsening hoarseness of voice, she does report some throat congestion and difficulty swallowing at times. She is concerned as she was a previous smoker. She did have a vocal cord surgery to removal polyp many years ago. She is interested in further evaluation and ENT. Abdominal hernia: She has undergone hernia surgery using the [employer] robotic system, which involved four small incisions. The hernia was located between the oblique and transverse muscles, which is an unusual presentation. She has two additional hernias, including an umbilical hernia causing significant discomfort, but is delaying further surgery to allow healing from the recent procedure. .. Lumbar radiculopathy: She reports she has been discontinued from pain management clinic. She reports having a clean urine . 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 She has been using oxycodone on a limited basis for her pain. She does report having side effects to Cymbalta, gabapentin, Lyrica. [facility] Medical History (Updated 09/04/24 @ 07:11 by Sincere Ray PA-C) SAURAV (obstructive sleep apnea) Anxiety and depression Spondylosis, lumbar, with myelopathy Disc degeneration, lumbar Chronic pain syndrome Plantar fasciitis Sacroiliitis Plantar fasciitis, bilateral Paresthesias Lumbar radiculopathy Cyst of uterus Breast cancer Neuropathy Pulmonary nodule Surgical History History of bilateral breast reduction surgery History of vocal cord polypectomy History of 2 sections Family History Father Alive and well Mother No problems noted. Social History Household Members Other:: with daughter Housing: House Alcohol intake: never Patient Tobacco Use Status: Former Tobacco user Cigarettes Per Day: 10 e-Cigarette/Vaping Use: Never Used Second Hand Smoke Exposure: Yes service: No Current occupational status: disabled Current occupational exposures/hazards: No Cognitive needs: No Hearing needs: No Vision needs: Yes (Glasses) Questionnaire Thrive Questionnaire Date Thrive assessed: 05/15/24 IVAN-7 AMB Questionnaire IVAN-7 Date IVAN - 7 assessed: 05/15/24 Source: Developed by Drs. Jasbir Andersen, Purvi Dumont, Grzegorz Wu and colleagues, with an educational brian from [employer]. Review of Systems Const Denies headache(s) Eyes Denies loss of vision ENT Denies vertigo, Denies dizziness, Denies headache(s) and Denies sore throat Card Denies chest pain, Denies leg edema and Denies lightheadedness Resp Denies cough, Denies hemoptysis and Denies wheezing GI Denies abdominal pain, Denies melena, Denies constipation, Denies diarrhea and Denies vomiting Denies urinary frequency, Denies dysuria and Denies urinary urgency Musc Denies arthralgias, Denies joint swelling, Denies numbness and Denies tingling Neuro Denies Abnormal speech present, Denies behavioral changes, Denies vertigo, Denies dizziness, Denies headache(s), Denies loss of vision, Denies memory loss, Denies numbness and Denies tingling Psych Denies anxiety, Denies behavioral changes, Denies depression, Denies memory loss and Denies panic attacks Mauricio/Lymph Denies easy bleeding and Denies easy bruising Aller/Immun Denies wheezing Physical exam (Primary Care) Vital Signs: Last Vital Signs Temp 97.1 F 09/03/24 11:18 Pulse 78 09/03/24 11:18 BP 102/76 09/03/24 11:18 Pulse Ox 97 09/03/24 11:18 Oxygen Delivery Method Room Air 09/03/24 11:18 BMI result Body Mass Index 33.4 Tobacco/Smoking Status: Tobacco use Status Tobacco use date assessed 05/15/24 09/03/24 11:23 Patient Tobacco Use Status Former Tobacco user 09/03/24 11:23 e-Cigarette/Vaping Use Never Used 09/03/24 11:23 Thrive Assessment: Date of Thrive Assessment Date Thrive assessed 05/15/24 09/03/24 11:23 Const General: healthy appearing, no acute distress, alert and awake Nutritional Appearance: well nourished Orientation/consciousness: oriented to person, oriented to place and oriented to time HENMT Ears: TM's normal bilaterally General nose exam: Normal nasal mucous membranes and turbinates present Eyes Conjunctivae: conjunctivae normal Sclerae: sclerae normal Pupils: Equal, round and reactive pupils present Neck Neck: Yes no lymphadenopathy and Yes no JVD Thyroid: Thyroid normal Carotids: no bruits Resp Effort & Inspection: normal respiratory effort and not tachypneic Auscultation: no crackles, no rales, no rhonchi and no wheezes Cardio Rate: regular rate Rhythm: regular rhythm Heart sounds: no murmurs and normal S1 and S2 GI Palpation (GI): Soft to palpation, nontender, no hepatomegaly and no splenomegaly Auscultation: normal bowel sounds Skin General skin exam: no rashes or lesions noted and dry skin Neuro General: oriented to person, oriented to place and oriented to time Cranial nerves: Yes Equal, round and reactive pupils present Speech: No Abnormal speech present Gait exam (Neuro): Normal gait present Motor exam (neuro): no tremor noted Extrem Right upper extremity: full ROM Left upper extremity: full ROM Right lower extremity: full ROM; no edema Left lower extremity: full ROM; no edema Psych Mental Status: mental status grossly normal Speech and movement: Normal speech and movement present Affect: normal affect Attitude: cooperative Thought process: Normal thought process present Coding Level of Care Code Est Pt Level 4 (74130) Diagnoses Class 1 obesity E66.811 Cervical radiculitis M54.12 Pulmonary nodule R91.1 Assessment & Plan Assessment & Plan (1) Class 1 obesity: Code(s): E66.811 - Obesity, class 1 Category: Medical Plan: Patient does understand her BMI is above 30 and will like to see a weight management program to discuss other weight loss medication. Has been using phentermine for quite some time though has only lost a suboptimal amount of weight. (2) Cervical radiculitis: Code(s): M54.12 - Radiculopathy, cervical region Category: Medical Plan: Has followed up with neurosurgeon whom recommends conservative treatment. As above has multilevel disc disease of her cervical spine noted on MRI recently. Has upcoming appointment with physical therapy to work on her neck, she will consider pain management for possible nerve ablation or some other pain reduction modality as well. For now she continues to use muscle relaxer and low-dose oxycodone on a p.r.n. basis for her pain (3) Pulmonary nodule: Code(s): R91.1 - Solitary pulmonary nodule Category: Medical Plan: When he is interested in reestablishing care with her previous social media marketing analyst due to having history of pulmonary nodule she would like followed. Orders: Orders Lipid Panel 09/03/24 E78.2 - Mixed hyperlipidemia Complete Blood Count no Diff 09/03/24 E78.2 - Mixed hyperlipidemia Comprehensive Ulysses. Panel Fast 09/03/24 E78.2 - Mixed hyperlipidemia Referrals Pulmonology Referral R91.1 - Solitary pulmonary nodule Medical Weight Management Referral E66.811 - Obesity, class 1
--- OUTSIDE RECORDS SUMMARY | 2024-09-03 13:21 | XMS_ITS | Clinical Summary ---
Author Organization [facility] Address [address] [place], [place] [id number] Care Team Providers Care Wrapping Clerk Name Role Phone Sincere Ray Primary Care [...] 73 12/15/2022 9:12 AM EDT Temperature 36.4 C (97.5 F) 12/15/2022 9:12 AM EDT Respiratory Rate - - Oxygen Saturation 96% [...] 2 - PCV) 04/23/2015 04/23/2014 Influenza Vaccine (Season Ended) 2024 RSV Adult > 60+ Yrs or Pregn ant (1 - 1-dose 75+ series) 2037 Hepatitis B Vaccines Aged Out No long er eligible based on patient's age to complete this topic RSV Ped < 20 months Aged Out No longe r eligible based on patient's age to complete this topic Care Teams Wrapping Clerk Relationship Specialty Start Date End Date Sincere Ray PA [address] [place] [phone] PCP - General Physician Trailhead Construction Worker 11/17/20
== END 2024-09-03 12:01 | disposition home or self-care (01) ==
PROVIDERS: PCP Physician Assistant; Visit Provider Physician Assistant
DX: M54.12 Radiculopathy, cervical region (principal); R91.1 Solitary pulmonary nodule; E66.811 Obesity, class 1; Z68.33 Body mass index [BMI] 33.0-33.9, adult

== ENCOUNTER → 2024-09-03 11:14 | Outpatient (BNVA) | payer MEDICARE, MEDICAID, SELFPAY | PROVIDERS: PCP Physician Assistant; Visit Provider Physician Assistant | DX: E66.811 Obesity, class 1 (principal); Z68.33 Body mass index [BMI] 33.0-33.9, adult; R91.1 Solitary pulmonary nodule; M54.12 Radiculopathy, cervical region; Z71.3 Dietary counseling and surveillance | CPT/HCPCS: 99212 ==